=== PATIENT | female | born 1930 | race Caucasian/White ===

== ENCOUNTER → 2016-05-17 | Outpatient (CLI) | payer MEDICARE ==
[~2016-05-17] MED LIST: ADVA100A INH; ALBU0.086 NEB; FEXO60TA PO; FLUT0.05 EX; FURO20; HYZA50TA2 PO; KCL20; PRIL20CA PO; ZOFR8TAB PO
[2016-05-17 13:14] LABS: POTASSIUM 4.3 MEQ/L (3.5-5.1)
[2016-05-17 13:18] LABS: BICARBONATE 29.8 MEQ/L (21.0-32.0)
== END ==
LOC: PLAB 12:22
PROVIDERS: ATTEND Internal Medicine Endocrinology, Diabetes & Metabolism
DX: E83.51 Hypocalcemia (principal)
CPT/HCPCS: 36415; 80048

== ENCOUNTER → 2016-05-24 | Outpatient (CLI) | payer MEDICARE ==
[2016-05-24 16:14] LABS: BICARBONATE 31.8 MEQ/L (21.0-32.0); POTASSIUM 3.4 MEQ/L (3.5-5.1)
== END ==
LOC: PLAB 12:37
PROVIDERS: ATTEND Internal Medicine Endocrinology, Diabetes & Metabolism
DX: E83.51 Hypocalcemia (principal)
CPT/HCPCS: 36415; 80048

== ENCOUNTER → 2016-06-24 | Outpatient (CLI) | payer MEDICARE ==
[2016-06-24 13:53] LABS: ALKALINE PHOSPHATASE 60 U/L (45-117); ALT (GPT) 27 U/L (10-53); ANION GAP 9 MEQ/L (5-15); AST (GOT) 21 U/L (15-37); BICARBONATE 26.8 MEQ/L (21.0-32.0); BLOOD UREA NITROGEN 11 MG/DL (7-18); CHLORIDE 97 MEQ/L (98-107); FREE T4 1.44 NG/DL (0.76-1.46); GLOMERULAR FILTRATION RATE 62 ML/MIN (>89); GLUCOSE,FASTING 74 MG/DL (74-99); POTASSIUM 3.6 MEQ/L (3.5-5.1); SODIUM (NA) 133 MEQ/L (136-145); TOTAL BILIRUBIN ADULT 0.4 MG/DL (0.2-1.0)
== END ==
LOC: PLAB 08:08
PROVIDERS: ATTEND Internal Medicine Endocrinology, Diabetes & Metabolism
DX: E89.0 Postprocedural hypothyroidism (principal); E21.0 Primary hyperparathyroidism
CPT/HCPCS: 36415; 80053; 83970; 84439; 84443

== ENCOUNTER → 2016-08-19 | Outpatient (CLI) | payer MEDICARE ==
[2016-08-19 10:02] LABS: ALKALINE PHOSPHATASE 50 U/L (45-117); ALT (GPT) 20 U/L (10-53); ANION GAP 9 MEQ/L (5-15); AST (GOT) 15 U/L (15-37); BICARBONATE 29.9 MEQ/L (21.0-32.0); BLOOD UREA NITROGEN 22 MG/DL (7-18); CHLORIDE 101 MEQ/L (98-107); FREE T4 1.43 NG/DL (0.76-1.46); GLOMERULAR FILTRATION RATE 71 ML/MIN (>89); GLUCOSE,FASTING 69 MG/DL (74-99); POTASSIUM 3.2 MEQ/L (3.5-5.1); SODIUM (NA) 140 MEQ/L (136-145); TOTAL BILIRUBIN ADULT 0.6 MG/DL (0.2-1.0)
== END ==
LOC: PLAB 07:30
PROVIDERS: ATTEND Internal Medicine Endocrinology, Diabetes & Metabolism
DX: E83.52 Hypercalcemia (principal); E21.0 Primary hyperparathyroidism; E55.9 Vitamin D deficiency, unspecified; E89.0 Postprocedural hypothyroidism
CPT/HCPCS: 36415; 80053; 82306; 83970; 84439; 84443

== ENCOUNTER → 2016-10-28 | Outpatient (CLI) | payer MEDICARE ==
[2016-10-28 13:33] LABS: AST (GOT) 19 U/L (15-37); CHLORIDE 103 MEQ/L (98-107); GLOMERULAR FILTRATION RATE 57 ML/MIN (>89); GLUCOSE,FASTING 81 MG/DL (74-99); POTASSIUM 4.1 MEQ/L (3.5-5.1); SODIUM (NA) 141 MEQ/L (136-145)
[2016-10-28 13:45] LABS: ALKALINE PHOSPHATASE 47 U/L (45-117); ALT (GPT) 23 U/L (10-53); ANION GAP 7 MEQ/L (5-15); BICARBONATE 30.6 MEQ/L (21.0-32.0); BLOOD UREA NITROGEN 20 MG/DL (7-18); FREE T4 1.48 NG/DL (0.76-1.46); TOTAL BILIRUBIN ADULT 0.4 MG/DL (0.2-1.0)
== END ==
LOC: PLAB 08:20
PROVIDERS: ATTEND Internal Medicine Endocrinology, Diabetes & Metabolism
DX: E83.52 Hypercalcemia (principal); E89.0 Postprocedural hypothyroidism
CPT/HCPCS: 36415; 80053; 82306; 83970; 84439; 84443

== ENCOUNTER → 2016-12-05 | Outpatient (CLI) | payer MEDICARE ==
[2016-12-05 09:56] LABS: ANION GAP 7 MEQ/L (5-15); BICARBONATE 32.5 MEQ/L (21.0-32.0); BLOOD UREA NITROGEN 25 MG/DL (7-18); CHLORIDE 101 MEQ/L (98-107); GLUCOSE,FASTING 84 MG/DL (74-99); POTASSIUM 3.6 MEQ/L (3.5-5.1); SODIUM (NA) 140 MEQ/L (136-145); TOTAL BILIRUBIN ADULT 0.4 MG/DL (0.2-1.0)
[2016-12-05 09:58] LABS: ALKALINE PHOSPHATASE 52 U/L (45-117)
[2016-12-05 09:59] LABS: ALT (GPT) 24 U/L (10-53); AST (GOT) 20 U/L (15-37); GLOMERULAR FILTRATION RATE 42 ML/MIN (>89)
== END ==
LOC: PLAB 07:55
PROVIDERS: ATTEND Internal Medicine Endocrinology, Diabetes & Metabolism
DX: E21.0 Primary hyperparathyroidism (principal)
CPT/HCPCS: 36415; 80053

== ENCOUNTER → 2016-12-30 | Outpatient (CLI) | payer MEDICARE ==
[~2016-12-30] MED LIST changes: +CALC0.25 PO; +CALCCHW4 CHEW; +FURO20TA PO; +LEVO.1 PO; +LOSA50TA2 PO; +MAGN400T2 PO; +OMEP20TA PO; +POTA10TA2 PO; +PRED50 PO
[2016-12-30 09:58] LABS: ANION GAP 5 MEQ/L (5-15); AST (GOT) 16 U/L (15-37); BICARBONATE 30.8 MEQ/L (21.0-32.0); BLOOD UREA NITROGEN 25 MG/DL (7-18); CHLORIDE 101 MEQ/L (98-107); GLOMERULAR FILTRATION RATE 48 ML/MIN (>89); GLUCOSE,FASTING 83 MG/DL (74-99); POTASSIUM 3.3 MEQ/L (3.5-5.1); SODIUM (NA) 137 MEQ/L (136-145)
[2016-12-30 10:11] LABS: ALKALINE PHOSPHATASE 48 U/L (45-117); ALT (GPT) 22 U/L (10-53); FREE T4 1.41 NG/DL (0.76-1.46); TOTAL BILIRUBIN ADULT 0.5 MG/DL (0.2-1.0)
== END ==
LOC: PLAB 07:57
PROVIDERS: ATTEND Internal Medicine Endocrinology, Diabetes & Metabolism
DX: E21.0 Primary hyperparathyroidism (principal); E89.0 Postprocedural hypothyroidism
CPT/HCPCS: 36415; 80053; 82306; 82652; 83970; 84439; 84443

== ENCOUNTER → 2017-02-03 | Outpatient (CLI) | payer MEDICARE ==
[2017-02-03 12:04] LABS: ALT (GPT) 21 U/L (10-53); ANION GAP 6 MEQ/L (5-15); AST (GOT) 16 U/L (15-37); BICARBONATE 30.5 MEQ/L (21.0-32.0); BLOOD UREA NITROGEN 13 MG/DL (7-18); CHLORIDE 102 MEQ/L (98-107); GLOMERULAR FILTRATION RATE 53 ML/MIN (>89); GLUCOSE,FASTING 73 MG/DL (74-99); POTASSIUM 3.6 MEQ/L (3.5-5.1); SODIUM (NA) 138 MEQ/L (136-145)
[2017-02-03 12:14] LABS: ALKALINE PHOSPHATASE 44 U/L (45-117); FREE T4 1.44 NG/DL (0.76-1.46); TOTAL BILIRUBIN ADULT 0.5 MG/DL (0.2-1.0)
== END ==
LOC: PLAB 08:23
PROVIDERS: ATTEND Internal Medicine Endocrinology, Diabetes & Metabolism
DX: E83.52 Hypercalcemia (principal); E89.0 Postprocedural hypothyroidism
CPT/HCPCS: 36415; 80053; 84439; 84443

== ENCOUNTER → 2017-02-16 | Outpatient (CLI) | payer MEDICARE ==
[2017-02-16 14:47] LABS: CHLORIDE 99 MEQ/L (98-107); SODIUM (NA) 138 MEQ/L (136-145)
[2017-02-16 14:52] LABS: ANION GAP 6 MEQ/L (5-15); BICARBONATE 33.5 MEQ/L (21.0-32.0); BLOOD UREA NITROGEN 34 MG/DL (7-18); MAGNESIUM 2.1 MG/DL (1.5-2.5)
[2017-02-16 14:55] LABS: ALT (GPT) 24 U/L (10-53); AST (GOT) 15 U/L (15-37); GLOMERULAR FILTRATION RATE 42 ML/MIN (>89)
[2017-02-16 14:57] LABS: TOTAL BILIRUBIN ADULT 0.5 MG/DL (0.2-1.0)
[2017-02-16 14:58] LABS: ALKALINE PHOSPHATASE 51 U/L (45-117)
== END ==
LOC: PLAB 02-15 13:53
PROVIDERS: ATTEND Internal Medicine Endocrinology, Diabetes & Metabolism
DX: E83.50 Unspecified disorder of calcium metabolism (principal); E89.0 Postprocedural hypothyroidism; E21.0 Primary hyperparathyroidism
CPT/HCPCS: 36415; 80053; 83735

== ENCOUNTER 2017-02-18 20:03 | Emergency (ER) | payer MEDICARE ==
[~2017-02-18] VITALS: Ht 162.6 cm; Wt 64.4 kg
[~2017-02-18 20:03] MED LIST changes: -CALC0.25 PO; -CALCCHW4 CHEW; -FURO20TA PO; -LEVO.1 PO; -LOSA50TA2 PO; -MAGN400T2 PO; -OMEP20TA PO; -POTA10TA2 PO; -PRED50 PO
[2017-02-18 20:37] VITALS: BP 165/74; PULSE 87; RESP 20; TEMP 98.4; O2SAT 96
[2017-02-18 21:00] VITALS: BP 166/75; PULSE 88; RESP 16; O2SAT 97
--- NOTE | 2017-02-18 21:21 | PD ---
HPI Chief Complaint: ENT Complaint Time Seen by Provider: 21:18 Travel History International Travel<30 days: No Contact w/Intl Traveler<30days: No Traveled to known affect area: No History of Present Illness HPI The patient is an 86-year-old female that states 2 days ago she woke up in the morning and her left TMJ was painful. She says she cannot completely close her teeth because of the pain on the left TMJ. She states she probably slept on around. She denies any other trauma. She has never had this problem before. The patient does have a history of COPD and asthma. She states she tolerates prednisone well. PFSH Past Medical History Asthma: Yes Heart Rhythm Problems: No Cancer: No Cardiovascular Problems: Yes High Cholesterol: No Chest Pain: No Congestive Heart Failure: No COPD: Yes Cerebrovascular Accident: No Diabetes: No Diminished Hearing: No Endocrine: No Genitourinary: No Hepatitis: No Hiatal Hernia: No Hypertension: Yes Musculoskeletal: No Neurologic: Yes Psychiatric: No Reproductive: No Respiratory: Yes (COPD) Migraines: No Seizures: No Sleep Apnea: No Thyroid Disease: Yes Menopausal: Yes : 0 Para: 0 Miscarriage: 0 : 0 Past Surgical History Abdominal Surgery: No Cardiac Surgery: No Ear Surgery: No Endocrine Surgery: No Eye Surgery: No Genitourinary Surgery: No Gynecologic Surgery: No Oral Surgery: Yes (TONSILECTOMY) Thoracic Surgery: No Tonsillectomy: Yes Other Surgery: Yes Social History Alcohol Use: No Tobacco Use: No Substance Use: No Allergies-Medications (Allergen,Severity, Reaction): Coded Allergies: penicillin G (Unverified Allergy, Intermediate, Rash, 02/18/17) sulfite (Unverified Allergy, Intermediate, Rash, 02/18/17) Reported Meds & Prescriptions Reported Meds & Active Scripts Active Prednisone 50 Mg Tab 50 Mg PO BID Zofran Tab (Ondansetron HCl) 8 Mg Tab 8 Mg PO BID Reported Proventil Ud 0.083% (2.5 Mg/3 Ml) (Albuterol Sulfate) 2.5 Mg/3 Ml Inha 2.5 Mg NEB PRN Hyzaar 50-12.5 (Losartan Potassium-Hct 50-12.5) 50 Mg/12.5 Mg Tab 1 Tab PO DAILY Cecile (Fexofenadine HCl) 60 Mg Tab Mg PO PRN Fluticasone Propionate cream (Fluticasone Propionate) 0.05 % Lot 0.05 % EX DAILY Advair Diskus 100/50 (Salmeterol Xinafoate/Fluticasone) 100 Mcg/50 Mcg Inhp 1 Puff INH BID Kcl 20 Meq Tab (Potassium Chloride) 20 Meq Tabcr 10 Meq .XX DAILY Lasix 20 Mg Tab (Furosemide) 20 Mg Tab 20 Mg .XX DAILY Prilosec 20 mg (Omeprazole) 20 Mg Capcr 20 Mg PO DAILY Review of Systems Except as stated in HPI: all other systems reviewed are Neg Physical Exam Narrative GENERAL: Well-nourished, well-developed patient. SKIN: Focused skin assessment warm/dry. HEAD: Normocephalic. EYES: No scleral icterus. No injection or drainage. NECK: Supple, trachea midline. No JVD or lymphadenopathy. CARDIOVASCULAR: Regular rate and rhythm without murmurs, gallops, or rubs. RESPIRATORY: Breath sounds equal bilaterally. No accessory muscle use. GASTROINTESTINAL: Abdomen soft, non-tender, nondistended. MUSCULOSKELETAL: No cyanosis, or edema. BACK: Nontender without obvious deformity. No CVA tenderness. ENT: The teeth show no evidence of dental infection, the tympanic membranes are normal, the left TMJ is exquisitely tender although noninflamed and there is no erythema of the skin. No swelling is noted there. There appears to be no dislocation. Data Data Last Documented VS Vital Signs Date Time Temp Pulse Resp B/P (MAP) Pulse Ox O2 Delivery O2 Flow Rate FiO2 02/18/17 21:00 88 16 166/75 (105) 97 Room Air 02/18/17 20:37 98.4 Orders Orders Mandible, Complete (Min 4vws) (02/18/17 ) Prednisone (Deltasone) (02/18/17 21:45) MDM Medical Decision Making Medical Screen Exam Complete: Yes Emergency Medical Condition: Yes Medical Record Reviewed: Yes Interpretation(s) X-rays of the mandible show no acute disease, specifically no fracture or dislocation. The condylar heads and necks appear normal. Differential Diagnosis TMJ pain, dental pain, ear pain Narrative Course The patient has TMJ pain there is no clinical evidence of dental pain or ear pain mimicking this. Also, the x-ray of the mandible show no acute disease. She is told to follow-up with an employment law attorney if she has continued problems with this. Diagnosis Primary Impression: Temporomandibular joint pain Additional Instructions: The prednisone is to calm down the TMJ area. It is one tablet twice daily for 3 days followed by one tablet once daily for 3 days. Follow-up with an employment law attorney or your primary care physician if you have continued pain. Med/Other Pt SpecificInfo: Prescription(s) given Scripts Prednisone (Prednisone) 50 Mg Tab 50 MG PO BID for X 3 days than 1 X 3 days, #9 TAB 0 Refills Prov: Renan Sanders MD 02/18/17 Disposition: 01 DISCHARGE HOME Condition: Stable Renan Sanders MD Feb 18, 2017 21:21
[2017-02-18] MEDS ORDERED: PRED50 PO (21:41)
[2017-02-18] MEDS ORDERED: predniSONE 20 MG TAB PO ONE (21:45)
--- NOTE | 2017-02-18 21:58 | RADRPT ---
EXAM DATE/TIME: 02/18/2017 21:31 [facility] COMPARISON: No previous studies available for comparison. INDICATIONS : Pain with no known injury. Patient has a history of a dislocating jaw. MEDICAL HISTORY : Chronic obstructive pulmonary disease. Cardiovascular disease. Hypertension. SURGICAL HISTORY : None. ENCOUNTER: Initial ACUITY: 1 day PAIN SCORE: 5/10 LOCATION: Left Mandibular rami. FINDINGS: Frontal, lateral, and oblique views of the mandible were performed. No fracture is seen. The condyl ar heads and necks appear normal. No dislocation is identified. Bony mineralization is normal. CONCLUSION: No acute disease. Higinoi Gómez MD on February 18, 2017 at 21:57 Board Certified Radiologist. This report was verified electronically.
[2017-02-18 22:15] VITALS: BP 141/61
[2017-02-18] MEDS ORDERED: CALC0.25 PO (22:29)
[2017-02-18] MEDS ORDERED: OMEP20TA PO (22:29)
[2017-02-18] MEDS ORDERED: FURO20TA PO (22:29)
[2017-02-18] MEDS ORDERED: ADVA100A INH (22:29)
[2017-02-18] MEDS ORDERED: MAGN400T2 PO (22:29)
[2017-02-18] MEDS ORDERED: POTA10TA2 PO (22:29)
[2017-02-18] MEDS ORDERED: LOSA50TA2 PO (22:29)
[2017-02-18] MEDS ORDERED: LEVO.1 PO (22:29)
[2017-02-18] MEDS ORDERED: CALCCHW4 CHEW (22:29)
== END 2017-02-18 22:15 | disposition home or self-care (01) ==
LOC: PHED 20:03
DX: M26.602 Left temporomandibular joint disorder, unspecified (principal)
CPT/HCPCS: 70110; 99283; J7512

== ENCOUNTER → 2017-04-17 | Outpatient (CLI) | payer MEDICARE ==
[~2017-04-17] MED LIST changes: -ALBU0.086 NEB; +CALC0.25 PO; +CALCCHW4 CHEW; -FEXO60TA PO; -FLUT0.05 EX; -FURO20; +FURO20TA PO; -HYZA50TA2 PO; -KCL20; +LEVO.1 PO; +LOSA50TA2 PO; +MAGN400T2 PO; +OMEP20TA93 PO; +POTA10TA2 PO; +PRED50 PO; -PRIL20CA PO; -ZOFR8TAB PO
[2017-04-17 12:52] LABS: ANION GAP 8 MEQ/L (5-15); BICARBONATE 30.5 MEQ/L (21.0-32.0); BLOOD UREA NITROGEN 16 MG/DL (7-18); CHLORIDE 103 MEQ/L (98-107); GLOMERULAR FILTRATION RATE 49 ML/MIN (>89); GLUCOSE,FASTING 79 MG/DL (74-99); POTASSIUM 3.8 MEQ/L (3.5-5.1); SODIUM (NA) 141 MEQ/L (136-145)
[2017-04-17 12:56] LABS: ALKALINE PHOSPHATASE 52 U/L (45-117); ALT (GPT) 22 U/L (10-53); AST (GOT) 17 U/L (15-37); TOTAL BILIRUBIN ADULT 0.5 MG/DL (0.2-1.0)
== END ==
LOC: PLAB 08:09
PROVIDERS: ATTEND Internal Medicine Endocrinology, Diabetes & Metabolism
DX: E89.0 Postprocedural hypothyroidism (principal); E21.4 Other specified disorders of parathyroid gland; E87.6 Hypokalemia; E55.9 Vitamin D deficiency, unspecified
CPT/HCPCS: 36415; 80053; 82306; 82652; 83735

== ENCOUNTER 2017-05-30 18:55 | Inpatient (IN) | payer MEDICARE ==
[~2017-05-30] VITALS: Ht 162.6 cm; Wt 64.2 kg
[2017-05-30 19:03] VITALS: BP 118/58; PULSE 66; RESP 18; TEMP 97.3; O2SAT 96
[2017-05-30 20:08] VITALS: BP 123/60; PULSE 73; RESP 16; O2SAT 93
[2017-05-30] MEDS ORDERED: SODIUM CHLORID 0.9% 500 ML INJ 500 ML IV ONE (20:30)
[2017-05-30] MEDS ORDERED: SODIUM CHLORIDE 0.9% FLUSH 10 ML FLUSH IV FLUSH PRN ×2 (20:30→22:15)
--- NOTE | 2017-05-30 20:31 | PD ---
HPI Chief Complaint: General Weakness Time Seen by Provider: 19:52 Travel History International Travel<30 days: No Contact w/Intl Traveler<30days: No Traveled to known affect area: No History of Present Illness HPI The patient is a 86-year-old female who presents to the emergency department with a friend for generalized weakness. The patient is a one-week history of generalized weakness, feels like her legs are "giving out ". The patient then was noted to have a change in speech on Monday by a friend, the patient states she noticed her speech was different on Monday. She states that her speech sounds "thick", appears to improve with water. She also states she was ambulating yesterday when her legs give out she fell to the floor. She landed on a tile floor, but denies striking her head or any loss of consciousness. She does complain of mild nausea without any vomiting, diarrhea , or abdominal pain. She denies any dysuria, but does note dark and concentrated urine. She also notes there is a foul smell to the urine. The patient does live alone at home. She denies any headache, neck pain, chest pain , shortness of breath, or abdominal pain. She denies any focal deficits of the upper or lower extremity. Symptoms are mild to moderate without any alleviating or exacerbating factors. PFSH Past Medical History Asthma: Yes Heart Rhythm Problems: No Cancer: No Cardiovascular Problems: Yes High Cholesterol: No Chest Pain: No Congestive Heart Failure: No COPD: Yes Cerebrovascular Accident: No Diabetes: No Diminished Hearing: No Endocrine: No Gastrointestinal Disorders: No Genitourinary: No Headaches: No Hepatitis: No Hiatal Hernia: No Hypertension: Yes Implanted Vascular Access Dvce: No Medical other: No Musculoskeletal: No Neurologic: Yes Psychiatric: No Reproductive: No Respiratory: Yes (COPD) Migraines: No Seizures: No Sleep Apnea: No Thyroid Disease: Yes Influenza Vaccination: Yes Menopausal: Yes : 0 Para: 0 Miscarriage: 0 : 0 Past Surgical History Abdominal Surgery: No Cardiac Surgery: No Ear Surgery: No Endocrine Surgery: No Eye Surgery: No Genitourinary Surgery: No Gynecologic Surgery: No Neurologic Surgery: No Oral Surgery: Yes (TONSILECTOMY) Thoracic Surgery: No Tonsillectomy: Yes Other Surgery: Yes Social History Alcohol Use: No Tobacco Use: No Substance Use: No Allergies-Medications (Allergen,Severity, Reaction): Coded Allergies: penicillin G (Verified Allergy, Intermediate, Rash, 05/30/17) sulfite (Verified Allergy, Intermediate, Rash, 05/30/17) Reported Meds & Prescriptions Reported Meds & Active Scripts Active Reported Calcium 500/D (Calcium Carbonate-Cholecalciferol) 500-400 Mg-Unit Chew 1 Tab CHEW TID NEB Magnesium Oxide 400 Mg Tab 400 Mg PO DAILY Synthroid (Levothyroxine Sodium) 100 Mcg Tab 100 Mcg PO DAILY Calcitriol 0.25 Mcg Cap 0.25 Mcg PO BID NEB Losartan-Hydrochlorothiazide 50-12.5 Mg Tab 1 Tab PO DAILY Furosemide 20 Mg Tab 20 Mg PO DAILY Potassium Chloride ER (Potassium Chloride) 10 Meq Tab 10 Meq PO DAILY Omeprazole 20 Mg Tab 20 Mg PO DAILY Advair Diskus Inh (Fluticasone-Salmeterol Inh) 100-50 Mcg/Blist Aer 1 Puff INH BID Rinse mouth after use. Review of Systems Except as stated in HPI: all other systems reviewed are Neg General / Constitutional: No: Fever HENT: No: Headaches, Lightheadedness Cardiovascular: No: Chest Pain or Discomfort Respiratory: No: Shortness of Breath Gastrointestinal: Positive: Nausea, No: Vomiting, Diarrhea, Abdominal Pain Genitourinary: Positive: Dysuria, Other (dark colored urine with a foul smell) Musculoskeletal: Positive: Weakness Neurologic: Positive: Weakness, Slurred Speech, No: Dizziness, Change in Mentation Physical Exam Narrative GENERAL: Awake, alert, pleasant 86-year-old female who appears her stated age and is in no acute respiratory distress. SKIN: Focused skin assessment warm/dry. HEAD: Atraumatic. Normocephalic. EYES: Pupils equal and round. 2 mm bilateral and reactive. EOMs are intact. Patient is able to see fingers at a distance of 2 feet without difficulty. ENT: No nasal bleeding or discharge. Dry mucous membranes. NECK: Trachea midline. No JVD. CARDIOVASCULAR: Regular rate and rhythm. No murmur appreciated. RESPIRATORY: No accessory muscle use. Clear to auscultation. Breath sounds equal bilaterally. GASTROINTESTINAL: Abdomen soft, non-tender, nondistended. No rebound tenderness. MUSCULOSKELETAL: No obvious deformities. No clubbing. No cyanosis. No edema. NEUROLOGICAL: Awake and alert. No obvious cranial nerve deficits. Motor grossly within normal limits. Speech is slightly thick and slow. Smile appears symmetric. No drift of the upper or lower extremities. Sensation is symmetric on the face, arms, and legs. Nonfocal otherwise. PSYCHIATRIC: Appropriate mood and affect; insight and judgment normal. Data Data Last Documented VS Vital Signs Date Time Temp Pulse Resp B/P (MAP) Pulse Ox O2 Delivery O2 Flow Rate FiO2 05/30/17 21:35 72 26 145/64 (91) 97 Room Air 05/30/17 19:03 97.3 Orders Orders Electrocardiogram (05/30/17 20:16) Complete Blood Count With Diff (05/30/17 20:16) Comprehensive Metabolic Panel (05/30/17 20:16) Creatine Kinase (Cpk) (05/30/17 20:16) Troponin I (05/30/17 20:16) Thyroid Stimulating Hormone (05/30/17 20:16) Urinalysis - C+S If Indicated (05/30/17 20:16) Lactic Acid Sepsis Protocol (05/30/17 20:16) Chest, Single Ap (05/30/17 20:16) Ct Brain W/O Iv Contrast(Rout) (05/30/17 20:16) Blood Glucose (05/30/17 20:16) Ecg Monitoring (05/30/17 20:16) Iv Access Insert/Monitor (05/30/17 20:16) Oximetry (05/30/17 20:16) Sodium Chloride 0.9% Flush (Ns Flush) (05/30/17 20:30) Sodium Chlorid 0.9% 500 Ml Inj (Ns 500 M (05/30/17 20:30) Cath For Specimen (05/30/17 21:09) Urine Culture (05/30/17 21:37) Sodium Chlor 0.9% 1000 Ml Inj (Ns 1000 M (05/30/17 22:00) Potassium Chloride (Kcl) (05/30/17 22:00) Ciprofloxacin 200 Mg Premix (Cipro 200 M (05/30/17 22:15) Labs Laboratory Tests Test 05/30/17 20:40 05/30/17 21:37 White Blood Count 16.8 TH/MM3 Red Blood Count 4.69 MIL/MM3 Hemoglobin 13.5 GM/DL Hematocrit 41.6 % Mean Corpuscular Volume 88.8 FL Mean Corpuscular Hemoglobin 28.9 PG Mean Corpuscular Hemoglobin Concent 32.5 % Red Cell Distribution Width 13.2 % Platelet Count 324 TH/MM3 Mean Platelet Volume 9.0 FL Neutrophils (%) (Auto) 87.9 % Lymphocytes (%) (Auto) 6.0 % Monocytes (%) (Auto) 5.6 % Eosinophils (%) (Auto) 0.2 % Basophils (%) (Auto) 0.3 % Neutrophils # (Auto) 14.8 TH/MM3 Lymphocytes # (Auto) 1.0 TH/MM3 Monocytes # (Auto) 0.9 TH/MM3 Eosinophils # (Auto) 0.0 TH/MM3 Basophils # (Auto) 0.1 TH/MM3 CBC Comment DIFF FINAL Differential Comment Blood Urea Nitrogen 32 MG/DL Creatinine 1.80 MG/DL Random Glucose 121 MG/DL Total Protein 8.7 GM/DL Albumin 4.0 GM/DL Calcium Level 15.9 MG/DL Alkaline Phosphatase 51 U/L Aspartate Amino Transf (AST/SGOT) 21 U/L Alanine Aminotransferase (ALT/SGPT) 25 U/L Total Bilirubin 0.7 MG/DL Sodium Level 136 MEQ/L Potassium Level 2.9 MEQ/L Chloride Level 95 MEQ/L Carbon Dioxide Level 33.3 MEQ/L Anion Gap 8 MEQ/L Estimat Glomerular Filtration Rate 27 ML/MIN Lactic Acid Level 1.4 mmol/L Protein Corrected Calcium 14.5 MG/DL Total Creatine Kinase 85 U/L Troponin I LESS THAN 0.02 NG/ML Thyroid Stimulating Hormone 3rd Gen 1.490 uIU/ML Urine Color YELLOW Urine Turbidity CLEAR Urine pH 7.0 Urine Specific [place] 1.008 Urine Protein NEG mg/dL Urine Glucose (UA) NEG mg/dL Urine Ketones NEG mg/dL Urine Occult Blood NEG Urine Nitrite NEG Urine Bilirubin NEG Urine Leukocyte Esterase SMALL Urine RBC 0-3 /hpf Urine WBC 9-14 /hpf Urine WBC Clumps FEW Urine Squamous Epithelial Cells 0-5 /hpf Urine Hyaline Casts 3-5 /lpf Microscopic Urinalysis Comment CATH-CULTURE IND MDM Medical Decision Making Medical Screen Exam Complete: Yes Emergency Medical Condition: Yes Medical Record Reviewed: Yes Interpretation(s) EKG reveals sinus rhythm with sinus arrhythmia. First-degree AV block with OH interval 2 and 40 ms. Nonspecific T-wave changes, inverted T-wave noted in lead 3. Laboratory Tests Test 05/30/17 20:40 05/30/17 21:37 White Blood Count 16.8 TH/MM3 Red Blood Count 4.69 MIL/MM3 Hemoglobin 13.5 GM/DL Hematocrit 41.6 % Mean Corpuscular Volume 88.8 FL Mean Corpuscular Hemoglobin 28.9 PG Mean Corpuscular Hemoglobin Concent 32.5 % Red Cell Distribution Width 13.2 % Platelet Count 324 TH/MM3 Mean Platelet Volume 9.0 FL Neutrophils (%) (Auto) 87.9 % Lymphocytes (%) (Auto) 6.0 % Monocytes (%) (Auto) 5.6 % Eosinophils (%) (Auto) 0.2 % Basophils (%) (Auto) 0.3 % Neutrophils # (Auto) 14.8 TH/MM3 Lymphocytes # (Auto) 1.0 TH/MM3 Monocytes # (Auto) 0.9 TH/MM3 Eosinophils # (Auto) 0.0 TH/MM3 Basophils # (Auto) 0.1 TH/MM3 CBC Comment DIFF FINAL Differential Comment Blood Urea Nitrogen 32 MG/DL Creatinine 1.80 MG/DL Random Glucose 121 MG/DL Total Protein 8.7 GM/DL Albumin 4.0 GM/DL Calcium Level 15.9 MG/DL Alkaline Phosphatase 51 U/L Aspartate Amino Transf (AST/SGOT) 21 U/L Alanine Aminotransferase (ALT/SGPT) 25 U/L Total Bilirubin 0.7 MG/DL Sodium Level 136 MEQ/L Potassium Level 2.9 MEQ/L Chloride Level 95 MEQ/L Carbon Dioxide Level 33.3 MEQ/L Anion Gap 8 MEQ/L Estimat Glomerular Filtration Rate 27 ML/MIN Lactic Acid Level 1.4 mmol/L Protein Corrected Calcium 14.5 MG/DL Total Creatine Kinase 85 U/L Troponin I LESS THAN 0.02 NG/ML Thyroid Stimulating Hormone 3rd Gen 1.490 uIU/ML Urine Color YELLOW Urine Turbidity CLEAR Urine pH 7.0 Urine Specific [place] 1.008 Urine Protein NEG mg/dL Urine Glucose (UA) NEG mg/dL Urine Ketones NEG mg/dL Urine Occult Blood NEG Urine Nitrite NEG Urine Bilirubin NEG Urine Leukocyte Esterase SMALL Urine RBC 0-3 /hpf Urine WBC 9-14 /hpf Urine WBC Clumps FEW Urine Squamous Epithelial Cells 0-5 /hpf Urine Hyaline Casts 3-5 /lpf Microscopic Urinalysis Comment CATH-CULTURE IND Last Impressions Head CT 05/30/172015 Signed Impressions: Service Date/Time: Tuesday, May 30, 2017 21:41 - CONCLUSION: No acute disease. Esvin Cazares Jr., MD Chest X-Ray 05/30/172015 Signed Impressions: Service Date/Time: Tuesday, May 30, 2017 20:50 - CONCLUSION: Hyperinflation suggesting COPD. No acute infiltrate or effusion. Esvin Cazares Jr., MD Differential Diagnosis Differential diagnosis includes dehydration, UTI, pneumonia, subdural hemorrhage , TIA, CVA, hyponatremia, electrolyte abnormality, medication side effect, delirium. Narrative Course IV was established, labs are drawn and sent, and the patient was placed on cardiac telemetry monitoring and continuous pulse oximetry monitoring. EKG was ordered and interpreted. Chest x-ray was obtained. CT of the brain was obtained. UA was sent to lab. The patient was administered IV fluids. CT the brain is negative. Chest x-rays unremarkable. The patient's white count was elevated at 16.8, creatinine elevated 1.8, may be dehydration with hemoconcentration. Calcium level was elevated at 15.9 with protein corrected of 14.5. The patient does have a history of hyperparathyroidism, recently had a thyroidectomy and partial parathyroidectomy in [place] in 2015. The patient states he recently increased her calcium supplementation, by her access assoc Dr. Ky Hussein. The patient also had a potassium that was low , the potassium was replaced orally. The patient was administered 1 L of IV fluids and will be placed on maintenance IV fluids. Once the patient's calcium levels begin the fall, she will need her calcium supplementation change and possibly a hold on her thighs lenses this can also cause elevated calcium levels. She will need to follow-up with her access assoc. I discussed the patient with the on-call [facility] hospitalist, Dr. Pak, who agrees with admission. Physician Communication Physician Communication I discussed the patient with Dr. Pak who agrees with admission. Diagnosis Primary Impression: Hypercalcemia Additional Impressions: Hypokalemia Acute kidney injury Dehydration Admitting Information Admitting Physician Requests: Admit Condition: Stable Danial Kirkpatrick MD May 30, 2017 20:31
[2017-05-30 20:44] VITALS: O2SAT 95
[2017-05-30 20:55] LABS: AUTOMATED NEUTROPHIL # 14.8 TH/MM3 (1.8-7.7); BASOPHIL # 0.1 TH/MM3 (0-0.2); BASOPHIL % 0.3 % (0.0-2.0); EOSINOPHIL % 0.2 % (0.0-4.0); HEMATOCRIT 41.6 % (35.0-46.0); HEMOGLOBIN 13.5 GM/DL (11.6-15.3); MEAN CELL VOLUME 88.8 FL (80.0-100.0); MEAN CORPUSCULAR HEMOGLOBIN 28.9 PG (27.0-34.0); MEAN CORPUSCULAR HGB CONC 32.5 % (32.0-36.0); MONO % 5.6 % (0.0-8.0); MONOCYTE # 0.9 TH/MM3 (0-0.9); NEUT % 87.9 % (16.0-70.0); PLATELET COUNT 324 TH/MM3 (150-450); RED BLOOD COUNT 4.69 MIL/MM3 (4.00-5.30); RED CELL DISTRIBUTION WIDTH 13.2 % (11.6-17.2); WHITE BLOOD COUNT 16.8 TH/MM3 (4.0-11.0)
--- NOTE | 2017-05-30 21:11 | RADRPT ---
EXAM DATE/TIME: 05/30/2017 20:50 [facility] COMPARISON: CHEST SINGLE AP, August 10, 2015, 23:50. INDICATIONS : Weakness for 2 days. MEDICAL HISTORY : Chronic obstructive pulmonary disease. Cardiovascular disease. Hypertension. SURGICAL HISTORY : None. ENCOUNTER: Initial ACUITY: 2 days PAIN SCORE: 0/10 LOCATION: Bilateral chest FINDINGS: A single view of the chest demonstrates the lungs to be symmetrically aerated without evidence of mas s, infiltrate or effusion. The lungs are hyperinflated bilaterally. The cardiomediastinal contours ar e unremarkable. Osseous structures are intact. CONCLUSION: Hyperinflation suggesting COPD. No acute infiltrate or effusion. Esvin Cazares Jr., MD on May 30, 2017 at 21:07 Board Certified Radiologist. This report was verified electronically.
[2017-05-30 21:35] VITALS: BP 145/64; PULSE 72; RESP 26; O2SAT 97
[2017-05-30 21:37] LABS: BILIRUBIN, URINE NEG (NEG); BLOOD, URINE NEG (NEG); GLUCOSE,URINE NEG (NEG); KETONE, URINE NEG (NEG); NITRITE,URINE NEG (NEG); URINE LEUKOCYTE ESTERASE SMALL (NEG)
[2017-05-30 21:43] LABS: URINE COLOR YELLOW (YELLW/STRAW)
[2017-05-30 21:44] LABS: ALKALINE PHOSPHATASE 51 U/L (45-117); ALT (GPT) 25 U/L (10-53); AST (GOT) 21 U/L (15-37); BICARBONATE 33.3 MEQ/L (21.0-32.0); BLOOD UREA NITROGEN 32 MG/DL (7-18); CHLORIDE 95 MEQ/L (98-107); GLOMERULAR FILTRATION RATE 27 ML/MIN (>89); GLUCOSE,RANDOM 121 MG/DL (74-106); SODIUM (NA) 136 MEQ/L (136-145); TOTAL BILIRUBIN ADULT 0.7 MG/DL (0.2-1.0); TOTAL PROTEIN 8.7 GM/DL (6.4-8.2); TROPONIN I LESS THAN 0.02 NG/ML (0.02-0.05)
[2017-05-30 21:45] LABS: RBC, URINE 0-3 /hpf (0-3); WHITE BLOOD CELL CLUMPS FEW
[2017-05-30 21:46] LABS: SQUAMOUS EPITHELIAL CELL URINE 0-5 /hpf (0-5)
[2017-05-30 21:51] LABS: CALCIUM 15.9 MG/DL (8.5-10.1)
[2017-05-30 21:52] LABS: CALCIUM-PROTEIN CORRECTED 14.5 MG/DL (8.5-10.1)
--- NOTE | 2017-05-30 21:53 | RADRPT ---
EXAM DATE/TIME: 05/30/2017 21:41 [facility] COMPARISON: No previous studies available for comparison. INDICATIONS : Altered mental status. Generalized weakness. RADIATION DOSE: 59.06 CTDIvol (mGy) MEDICAL HISTORY : Chronic obstructive pulmonary disease. Hypertension. SURGICAL HISTORY : None. ENCOUNTER: Initial ACUITY: 1 day PAIN SCALE: 2/10 LOCATION: cranial TECHNIQUE: Multiple contiguous axial images were obtained of the head. Using automated exposure control and adj ustment of the mA and/or kV according to patient size, radiation dose was kept as low as reasonably a chievable to obtain optimal diagnostic quality images. DICOM format image data is available electro nically for review and comparison. FINDINGS: CEREBRUM: The ventricles are normal for age. No evidence of midline shift, mass lesion, hemorrhage or acute in farction. No extra-axial fluid collections are seen. POSTERIOR FOSSA: The cerebellum and brainstem are intact. The 4th ventricle is midline. The cerebellopontine angle i s unremarkable. EXTRACRANIAL: The visualized portion of the orbits is intact. SKULL: The calvaria is intact. No evidence of skull fracture. CONCLUSION: No acute disease. Esvin Cazares Jr., MD on May 30, 2017 at 21:50 Board Certified Radiologist. This report was verified electronically.
[2017-05-30] MEDS ORDERED: SODIUM CHLOR 0.9% 1000 ML INJ 1,000 ML IV ONE (22:00)
[2017-05-30] MEDS ORDERED: POTASSIUM CHLORIDE 20 MEQ CONTROLLED RELEASE TAB PO ONE (22:00)
[2017-05-30] MEDS ORDERED: SODIUM CHLOR 0.9% 1000 ML INJ 1,000 ML IV SCH ×2 (22:10→22:15)
[2017-05-30] MEDS ORDERED: NALOXONE HCL 0.4 MG/ML AMP IV PUSH PRN (22:15)
[2017-05-30] MEDS ORDERED: CIPROFLOXACIN 200 MG PREMIX 100 ML IV ONE (22:15)
[2017-05-31] VITALS (7 sets, daily range): BP systolic 106–137; BP diastolic 53–66; PULSE 54–73; RESP 18–20; TEMP 96.3–98.6; O2SAT 95–98
[2017-05-31 01:43] LABS: BICARBONATE 29.4 MEQ/L (21.0-32.0); CREATININE 1.5 MG/DL (0.50-1.00)
[2017-05-31 01:47] LABS: CALCIUM 13.2 MG/DL (8.5-10.1)
[2017-05-31 01:59] LABS: TOTAL PROTEIN 6.8 GM/DL (6.4-8.2)
[2017-05-31 02:00] LABS: CALCIUM-PROTEIN CORRECTED 13.5 MG/DL (8.5-10.1)
[2017-05-31] MEDS ORDERED: POTASSIUM CHLORIDE 20 MEQ CONTROLLED RELEASE TAB PO ONE (02:00)
[2017-05-31] MEDS: POTASSIUM CHLOR 10 MEQ PREMIX 100 ML IV SCH ×2 (02:21→04:07)
[2017-05-31 06:23] LABS: AUTOMATED NEUTROPHIL # 10.8 TH/MM3 (1.8-7.7); BASOPHIL # 0.1 TH/MM3 (0-0.2); BASOPHIL % 0.5 % (0.0-2.0); EOSINOPHIL # 0.1 TH/MM3 (0-0.4); EOSINOPHIL % 0.9 % (0.0-4.0); HEMATOCRIT 34.2 % (35.0-46.0); HEMOGLOBIN 11.7 GM/DL (11.6-15.3); LYMPH % 11.8 % (9.0-44.0); LYMPHOCYTE # 1.6 TH/MM3 (1.0-4.8); MEAN CELL VOLUME 89.4 FL (80.0-100.0); MEAN CORPUSCULAR HEMOGLOBIN 30.5 PG (27.0-34.0); MEAN CORPUSCULAR HGB CONC 34.1 % (32.0-36.0); MEAN PLATELET VOLUME 9.3 FL (7.0-11.0); MONO % 7.7 % (0.0-8.0); MONOCYTE # 1.1 TH/MM3 (0-0.9); NEUT % 79.1 % (16.0-70.0); PLATELET COUNT 248 TH/MM3 (150-450); RED BLOOD COUNT 3.82 MIL/MM3 (4.00-5.30); RED CELL DISTRIBUTION WIDTH 13.3 % (11.6-17.2); WHITE BLOOD COUNT 13.7 TH/MM3 (4.0-11.0)
[2017-05-31 07:00] LABS: BICARBONATE 29.4 MEQ/L (21.0-32.0); CREATININE 1.5 MG/DL (0.50-1.00)
[2017-05-31 07:07] LABS: CALCIUM 13.9 MG/DL (8.5-10.1)
[2017-05-31 07:26] LABS: CALCIUM-PROTEIN CORRECTED 14.1 MG/DL (8.5-10.1)
[2017-05-31] MEDS: SODIUM CHLORIDE 0.9% FLUSH 10 ML FLUSH IV FLUSH SCH ×2 (09:25→20:30)
[2017-05-31] MEDS: NS + KCL 20 MEQ INJ 1,000 ML IV SCH ×2 (09:25→17:15)
--- NOTE | 2017-05-31 09:47 | EKG ---
Date Performed: 05/30/2017 Time Performed: 20:30:11 PTAGE: 86 years EKG: Sinus rhythm WITH MARKED SINUS ARRHYTHMIA WITH FIRST DEGREE AV BLOCK MODERATE INTRAVENTRICULAR CONDUCTION DELAY N ONSPECIFIC T-WAVE ABNORMALITY ABNORMAL ECG PREVIOUS TRACING : 08/10/2015 23.31 DOCTOR: Eben Dejesus Interpretating Date/Time 05/31/2017 09:46:36
[2017-05-31] MEDS ORDERED: FUROSEMIDE 20 MG/2 ML VIAL IV PUSH ONE (12:45)
--- NOTE | 2017-05-31 12:56 | HHI.HP ---
[facility] Physician Marycarmen Crenshaw MD Admission Diagnosis hypercalcemia, hypokalemia, dehydration, acute kidney injury, UTI Diagnoses: Travel History International Travel<30 Days: No Contact w/Intl Traveler <30 Da: No Traveled to Known Affected Are: No History of Present Illness This patient's 86-year-old female with a history of hyperparathyroidism and had a parathyroidectomy (05/18) in 2016. Since that time she has been under her cmm technician care. She had some hypocalcemia recently and was recommended to increase her calcitriol. She also takes a vitamin D and calcium supplement. Patient also has some hypokalemia which had been prescribed a supplement per the patient. Patient has presented to the emergency room with 1 week of increased weakness and fatigue. Patient says she's had constipation and has generally felt unwell. She does live alone in her friend brought her to the emergency room where her calcium level was found to be 15.9. Patient says has had IV fluids and has been given also potassium for her hypokalemia. Patient is admitted to the hospital for further management of this. I did speak with the cmm technician office and recent changes in her medications were made as above. Patient also has come been on thyroid medicine and her TSH has been stable. Review of Systems Constitutional: COMPLAINS OF: Fatigue, Change in appetite Endocrine: DENIES: Abnorml menstrual pattern, Heat/cold intolerance, Polydipsia , Polyuria, Polyphagia Eyes: DENIES: Blurred vision, Diplopia, Eye inflammation, Eye pain, Vision loss , Photosensitivity, Double Vision Ears, nose, mouth, throat: DENIES: Tinnitus, Hearing loss, Vertigo, Nasal discharge, Oral lesions, Throat pain, Hoarseness, Ear Pain, Running Nose, Epistaxis, Sinus Pain, Toothache, Odynophagia Respiratory: DENIES: Apneas, Cough, Snoring, Wheezing, Hemoptysis, Sputum production, Shortness of breath Cardiovascular: DENIES: Chest pain, Palpitations, Syncope, Dyspnea on Exertion , PND, Lower Extremity Edema, Orthopnea, Claudication Gastrointestinal: COMPLAINS OF: Constipation, DENIES: Abdominal pain, Black stools, Bloody stools, Diarrhea, Nausea, Vomiting, Difficulty Swallowing, Anorexia Genitourinary: DENIES: Abnormal vaginal bleeding, Dysmenorrhea, Dyspareunia, Sexual dysfunction, Urinary frequency, Urinary incontinence, Urgency, Hematuria , Dysuria, Nocturia, Vaginal discharge Musculoskeletal: DENIES: Joint pain, Muscle aches, Stiffness, Joint Swelling, Back pain, Neck pain Integumentary: DENIES: Abnormal pigmentation, Pruritus, Rash, Nail changes, Breast masses, Breast skin changes, Nipple discharge Hematologic/lymphatic: DENIES: Bruising, Lymphadenopathy Immunologic/allergic: DENIES: Eczema, Urticaria Neurologic: DENIES: Abnormal gait, Headache, Localized weakness, Paresthesias, Seizures, Speech Problems, Tremor, Poor Balance Psychiatric: DENIES: Anxiety, Confusion, Mood changes, Depression, Hallucinations, Agitation, Suicidal Ideation, Homicidal Ideation, Delusions Except as stated in HPI: all other systems reviewed are Neg Past Family Social History Past Medical History Hyperparathyroidism COPD Hypothyroidism Past Surgical History Thyroidectomy One out of 4 parathyroidectomy Tonsillectomy Reported Medications Reviewed in the EMR, Calcitrol increased at last doctor visit in April Allergies: Coded Allergies: penicillin G (Verified Allergy, Intermediate, Rash, 05/30/17) sulfite (Verified Allergy, Intermediate, Rash, 05/30/17) Active Ordered Medications Reviewed in the EMR Family History Family history of hypertension Social History Lives alone No tobacco or alcohol dependency Physical Exam Vital Signs Vital Signs Date Time Temp Pulse Resp B/P (MAP) Pulse Ox O2 Delivery O2 Flow Rate FiO2 05/31/17 08:00 98.4 54 18 106/59 (75) 95 05/31/17 04:00 96.8 54 20 114/57 (76) 95 05/31/17 00:53 64 05/31/17 00:00 96.6 64 20 137/66 (89) 97 05/30/17 23:46 05/30/17 21:35 72 26 145/64 (91) 97 Room Air 05/30/17 20:44 95 Room Air 05/30/17 20:08 73 16 123/60 (81) 93 Room Air 05/30/17 20:08 93 Room Air 05/30/17 19:03 97.3 66 18 118/58 (78) 96 Physical Exam GENERAL: This is a well-nourished, well-developed patient, in no apparent distress. SKIN: No rashes, ecchymoses or lesions. Cool and dry. HEAD: Atraumatic. Normocephalic. No temporal or scalp tenderness. EYES: Pupils equal round and reactive. Extraocular motions intact. No scleral icterus. No injection or drainage. ENT: Nose without bleeding, purulent drainage or septal hematoma. Throat without erythema, tonsillar hypertrophy or exudate. Uvula midline. Airway patent. NECK: Trachea midline. No JVD or lymphadenopathy. Supple, nontender, no meningeal signs. CARDIOVASCULAR: Regular rate and rhythm without murmurs, gallops, or rubs. RESPIRATORY: Clear to auscultation. Breath sounds equal bilaterally. No wheezes , rales, or rhonchi. GASTROINTESTINAL: Abdomen soft, non-tender, nondistended. No hepato-splenomegaly , or palpable masses. No guarding. MUSCULOSKELETAL: Extremities without clubbing, cyanosis, or edema. No joint tenderness, effusion, or edema noted. No calf tenderness. Negative Homans sign bilaterally. NEUROLOGICAL: Awake and alert. Cranial nerves II through XII intact. Motor and sensory grossly within normal limits. Five out of 5 muscle strength in all muscle groups. Normal speech. Laboratory Laboratory Tests Test 05/30/17 20:40 05/30/17 21:37 05/31/17 00:44 05/31/17 05:46 White Blood Count 16.8 13.7 Red Blood Count 4.69 3.82 Hemoglobin 13.5 11.7 Hematocrit 41.6 34.2 Mean Corpuscular Volume 88.8 89.4 Mean Corpuscular Hemoglobin 28.9 30.5 Mean Corpuscular Hemoglobin Concent 32.5 34.1 Red Cell Distribution Width 13.2 13.3 Platelet Count 324 248 Mean Platelet Volume 9.0 9.3 Neutrophils (%) (Auto) 87.9 79.1 Lymphocytes (%) (Auto) 6.0 11.8 Monocytes (%) (Auto) 5.6 7.7 Eosinophils (%) (Auto) 0.2 0.9 Basophils (%) (Auto) 0.3 0.5 Neutrophils # (Auto) 14.8 10.8 Lymphocytes # (Auto) 1.0 1.6 Monocytes # (Auto) 0.9 1.1 Eosinophils # (Auto) 0.0 0.1 Basophils # (Auto) 0.1 0.1 CBC Comment DIFF FINAL DIFF FINAL Differential Comment Blood Urea Nitrogen 32 27 27 Creatinine 1.80 1.50 1.50 Random Glucose 121 107 86 Total Protein 8.7 6.8 7.0 Albumin 4.0 Calcium Level 15.9 13.2 13.9 Alkaline Phosphatase 51 Aspartate Amino Transf (AST/SGOT) 21 Alanine Aminotransferase (ALT/SGPT) 25 Total Bilirubin 0.7 Sodium Level 136 139 140 Potassium Level 2.9 2.6 3.6 Chloride Level 95 104 105 Carbon Dioxide Level 33.3 29.4 29.4 Anion Gap 8 6 6 Estimat Glomerular Filtration Rate 27 33 33 Lactic Acid Level 1.4 Protein Corrected Calcium 14.5 13.5 14.1 Total Creatine Kinase 85 Troponin I LESS THAN 0.02 Thyroid Stimulating Hormone 3rd Gen 1.490 Urine Color YELLOW Urine Turbidity CLEAR Urine pH 7.0 Urine Specific [place] 1.008 Urine Protein NEG Urine Glucose (UA) NEG Urine Ketones NEG Urine Occult Blood NEG Urine Nitrite NEG Urine Bilirubin NEG Urine Leukocyte Esterase SMALL Urine RBC 0-3 Urine WBC 9-14 Urine WBC Clumps FEW Urine Squamous Epithelial Cells 0-5 Urine Hyaline Casts 3-5 Microscopic Urinalysis Comment CATH-CULTURE IND Date/Time Source Procedure Growth Status 05/30/17 21:37 Urine Catheterized Urine Urine Culture Pending Received Result Diagram: 05/31/17 0546 05/31/17 0546 Imaging Last Impressions Head CT 05/30/172015 Signed Impressions: Service Date/Time: Tuesday, May 30, 2017 21:41 - CONCLUSION: No acute disease. Esvin Cazares Jr., MD Chest X-Ray 05/30/172015 Signed Impressions: Service Date/Time: Tuesday, May 30, 2017 20:50 - CONCLUSION: Hyperinflation suggesting COPD. No acute infiltrate or effusion. Esvin Cazares Jr., MD Septic Shock Reassessment Septic shock perfusion: reassessment completed Caprini VTE Risk Assessment Caprini VTE Risk Assessment: Mod/High Risk (score >= 2) Caprini Risk Assessment Model Point Value = 1 Point Value = 2 Point Value = 3 Point Value = 5 Age 41-60 Minor surgery BMI > 25 kg/m2 Swollen legs Varicose veins or History of unexplained or recurrent spontaneous Oral contraceptives or hormone replacement Sepsis (< 1 month) Serious lung disease, including pneumonia (< 1 month) Abnormal pulmonary function Acute myocardial infarction Congestive heart failure (< 1 month) History of inflammatory bowel disease Medical patient at bed rest Age 61-74 Arthroscopic surgery Major open surgery (> 45 min) Laparoscopic surgery (> 45 min) Malignancy Confined to bed (> 72 hours) Immobilizing plaster cast Central venous access Age >= 75 History of VTE Family history of VTE Factor V Leiden Prothrombin [id number] Lupus anticoagulant Anticardiolipin antibodies Elevated serum homocysteine Heparin-induced thrombocytopenia Other congenital or acquired thrombophilia Stroke (< 1 month) Elective arthroplasty Hip, pelvis, or leg fracture Acute spinal cord injury (< 1 month) Prophylaxis Regimen Total Risk Factor Score Risk Level Prophylaxis Regimen 0-1 Low Early ambulation 2 Moderate Order ONE of the following: *Sequential Compression Device (SCD) *Heparin 5000 units SQ BID 3-4 Higher Order ONE of the following medications: *Heparin 5000 units SQ TID *Enoxaparin/Lovenox 40 mg SQ daily (WT < 150 kg, CrCl > 30 mL/min) *Enoxaparin/Lovenox 30 mg SQ daily (WT < 150 kg, CrCl > 10-29 mL/min) *Enoxaparin/Lovenox 30 mg SQ BID (WT < 150 kg, CrCl > 30 mL/min) AND/OR *Sequential Compression Device (SCD) 5 or more Highest Order ONE of the following medications: *Heparin 5000 units SQ TID (Preferred with Epidurals) *Enoxaparin/Lovenox 40 mg SQ daily (WT < 150 kg, CrCl > 30 mL/min) *Enoxaparin/Lovenox 30 mg SQ daily (WT < 150 kg, CrCl > 10-29 mL/min) *Enoxaparin/Lovenox 30 mg SQ BID (WT < 150 kg, CrCl > 30 mL/min) AND *Sequential Compression Device (SCD) Assessment and Plan Problem List: (1) Hypercalcemia ICD Code: E83.52 - Hypercalcemia Status: Acute Plan: We'll continue with IV hydration, Lasix and calcitonin Follow-up serial electrolyte levels I did discuss this patient with the primary care doctor office (2) Hypokalemia ICD Code: E87.6 - Hypokalemia Status: Acute Plan: We'll continue to replace potassium Follow-up magnesium (3) Dehydration ICD Code: E86.0 - Dehydration Status: Acute Plan: Continue hydration Code Status DO NOT RESUSCITATE Discussed Condition With Patient endocrinology office Physician Certification 2 Midnight Certification Type: Admission for Inpatient Services Order for Inpatient Services The services are ordered in accordance with Medicare regulations or non- Medicare payer requirements, as applicable. In the case of services not specified as inpatient-only, they are appropriately provided as inpatient services in accordance with the 2-midnight benchmark. Estimated LOS (days): 3 3 days is the estimated time the patient will need to remain in the hospital, assuming treatment plan goals are met and no additional complications. Post-Hospital Plan: Home Mayela Arambula MD May 31, 2017 12:56
[2017-05-31] MEDS ORDERED: ENOXAPARIN SODIUM 40 MG/0.4 ML SYRINGE SQ SCH (13:00)
[2017-05-31 18:47] LABS: BICARBONATE 27.6 MEQ/L (21.0-32.0); CREATININE 1.5 MG/DL (0.50-1.00)
[2017-05-31 18:58] LABS: CALCIUM 12.6 MG/DL (8.5-10.1)
[2017-05-31 19:20] LABS: TOTAL PROTEIN 6.9 GM/DL (6.4-8.2)
[2017-05-31 19:32] LABS: CALCIUM-PROTEIN CORRECTED 12.8 MG/DL (8.5-10.1)
[2017-05-31] MEDS: BUDESONIDE-FORMOTEROL 80/4.5 MCG INHALER INH SCH (20:31)
[2017-06-01] VITALS: BP 119/56; PULSE 59; RESP 20; TEMP 98.4; O2SAT 96
[2017-06-01] MEDS: NS + KCL 20 MEQ INJ 1,000 ML IV SCH ×2 (01:57→09:02)
[2017-06-01 04:00] VITALS: BP 124/64; PULSE 59; RESP 20; TEMP 98.9; O2SAT 94
[2017-06-01] MEDS ORDERED: LEVOTHYROXINE SODIUM 100 MCG TAB PO SCH (06:00)
[2017-06-01 07:02] LABS: BICARBONATE 25.8 MEQ/L (21.0-32.0); CREATININE 1.3 MG/DL (0.50-1.00)
[2017-06-01] MEDS ORDERED: POTASSIUM CHLORIDE 20 MEQ CONTROLLED RELEASE TAB PO ONE (07:30)
[2017-06-01 08:00] VITALS: BP 133/63; PULSE 65; RESP 14; TEMP 96.9; O2SAT 95
[2017-06-01 08:01] VITALS: PULSE 59
[2017-06-01] MEDS ORDERED: CALCITONIN SALM 200 UNIT/SPRAY 3.7 ML BTLN NASAL SCH (09:00)
[2017-06-01] MEDS: SODIUM CHLORIDE 0.9% FLUSH 10 ML FLUSH IV FLUSH SCH (09:00)
[2017-06-01] MEDS ORDERED: PANTOPRAZOLE SOD 20 MG DELAYED RELEASE TAB PO SCH (09:00)
[2017-06-01] MEDS: BUDESONIDE-FORMOTEROL 80/4.5 MCG INHALER INH SCH (09:02)
[2017-06-01] MEDS ORDERED: CALC1TAB12 PO (11:39)
--- NOTE | 2017-06-01 11:40 | HHI.DS ---
Discharge Summary Admission Date May 30, 2017 at 22:16 Discharge Date: Jun 01, 2017 Admitting Diagnosis hypercalcemia, hypokalemia, dehydration, acute kidney injury, UTI (1) Hypercalcemia ICD Code: E83.52 - Hypercalcemia Status: Acute (2) Hypokalemia ICD Code: E87.6 - Hypokalemia Status: Acute (3) Dehydration ICD Code: E86.0 - Dehydration Status: Acute Procedures None Brief History - From Admission This patient's 86-year-old female with a history of hyperparathyroidism and had a parathyroidectomy (05/18) in 2015. Since that time she has been under her java j2ee technical lead care. She had some hypocalcemia recently and was recommended to increase her calcitriol. She also takes a vitamin D and calcium supplement. Patient also has some hypokalemia which had been prescribed a supplement per the patient. Patient has presented to the emergency room with 1 week of increased weakness and fatigue. Patient says she's had constipation and has generally felt unwell. She does live alone in her friend brought her to the emergency room where her calcium level was found to be 15.9. Patient says has had IV fluids and has been given also potassium for her hypokalemia. Patient is admitted to the hospital for further management of this. I did speak with the java j2ee technical lead office and recent changes in her medications were made as above. Patient also has come been on thyroid medicine and her TSH has been stable. CBC/BMP: 05/31/17 0546 06/01/17 0533 Significant Findings Laboratory Tests Test 05/30/17 20:40 05/30/17 21:37 05/31/17 00:44 05/31/17 05:46 White Blood Count 16.8 TH/MM3 (4.0-11.0) 13.7 TH/MM3 (4.0-11.0) Neutrophils (%) (Auto) 87.9 % (16.0-70.0) 79.1 % (16.0-70.0) Lymphocytes (%) (Auto) 6.0 % (9.0-44.0) Neutrophils # (Auto) 14.8 TH/MM3 (1.8-7.7) 10.8 TH/MM3 (1.8-7.7) Blood Urea Nitrogen 32 MG/DL (7-18) 27 MG/DL (7-18) 27 MG/DL (7-18) Creatinine 1.80 MG/DL (0.50-1.00) 1.50 MG/DL (0.50-1.00) 1.50 MG/DL (0.50-1.00) Random Glucose 121 MG/DL (74-106) 107 MG/DL (74-106) Total Protein 8.7 GM/DL (6.4-8.2) Calcium Level 15.9 MG/DL (8.5-10.1) 13.2 MG/DL (8.5-10.1) 13.9 MG/DL (8.5-10.1) Potassium Level 2.9 MEQ/L (3.5-5.1) 2.6 MEQ/L (3.5-5.1) Chloride Level 95 MEQ/L (98-107) Carbon Dioxide Level 33.3 MEQ/L (21.0-32.0) Estimat Glomerular Filtration Rate 27 ML/MIN (>89) 33 ML/MIN (>89) 33 ML/MIN (>89) Protein Corrected Calcium 14.5 MG/DL (8.5-10.1) 13.5 MG/DL (8.5-10.1) 14.1 MG/DL (8.5-10.1) Troponin I LESS THAN 0.02 NG/ML Urine Leukocyte Esterase SMALL (NEG) Urine WBC 9-14 /hpf (0-5) Urine WBC Clumps FEW (NONE) Urine Hyaline Casts 3-5 /lpf (RARE) Red Blood Count 3.82 MIL/MM3 (4.00-5.30) Hematocrit 34.2 % (35.0-46.0) Monocytes # (Auto) 1.1 TH/MM3 (0-0.9) Test 05/31/17 13:30 05/31/17 17:54 06/01/17 05:33 Blood Urea Nitrogen 29 MG/DL (7-18) 27 MG/DL (7-18) Creatinine 1.50 MG/DL (0.50-1.00) 1.30 MG/DL (0.50-1.00) Calcium Level 12.6 MG/DL (8.5-10.1) 11.0 MG/DL (8.5-10.1) Potassium Level 3.1 MEQ/L (3.5-5.1) 3.2 MEQ/L (3.5-5.1) Estimat Glomerular Filtration Rate 33 ML/MIN (>89) 39 ML/MIN (>89) Protein Corrected Calcium 12.8 MG/DL (8.5-10.1) Chloride Level 113 MEQ/L (98-107) Imaging Last Impressions Head CT 05/30/172015 Signed Impressions: Service Date/Time: Tuesday, May 30, 2017 21:41 - CONCLUSION: No acute disease. Esvin Cazares Jr., MD Chest X-Ray 05/30/172015 Signed Impressions: Service Date/Time: Tuesday, May 30, 2017 20:50 - CONCLUSION: Hyperinflation suggesting COPD. No acute infiltrate or effusion. Esvin Cazares Jr., MD PE at Discharge GENERAL: This is a well-nourished, well-developed patient, in no apparent distress. CARDIOVASCULAR: Regular rate and rhythm without murmurs, gallops, or rubs. RESPIRATORY: Clear to auscultation. Breath sounds equal bilaterally. No wheezes , rales, or rhonchi. GASTROINTESTINAL: Abdomen soft, non-tender, nondistended. Normal active bowel sounds MUSCULOSKELETAL: Extremities without clubbing, cyanosis, or edema. NEURO: Alert & Oriented x4 to person, place, time, situation. Moves all ext x4 Hospital Course Patient was seen in follow-up for hypercalcemia. She was dehydrated. Patient required IV fluids with little Lasix to bring her past calcium down. She also required potassium replacement and has had potassium at home. Recently her calcium was increased by her primary java j2ee technical lead and she is status post parathyroidectomy. She did quite well and was discharged home to follow-up with her java j2ee technical lead Pt Condition on Discharge: Good Discharge Disposition: Discharge Home Discharge Time: <= 30 minutes Discharge Instructions DIET: Follow Instructions for: Diabetic Diet Activities you can perform: Regular-No Restrictions Follow up Referrals: Endocrinology - 1 Week with gagan New Medications: Calcium Carbonate-Cholecalciferol (Calcium 500 +D) 500-400 Mg-Unit Tab 1 TAB PO BID for Calcium Supplement, #62 TAB 0 Refills Continued Medications: Calcitriol (Calcitriol) 0.25 Mcg Cap 0.25 MCG PO BID NEB for Calcium Supplement, #30 CAP 0 Refills Fluticasone-Salmeterol Inh (Advair Diskus Inh) 100-50 Mcg/Blist Aer 1 PUFF INH BID for Asthma Management, #1 INHALER 0 Refills Rinse mouth after use. Furosemide (Furosemide) 20 Mg Tab 20 MG PO DAILY, #30 TAB 0 Refills Levothyroxine (Synthroid) 100 Mcg Tab 100 MCG PO DAILY for Thyroid, #30 TAB 0 Refills Losartan-Hydrochlorothiazide (Losartan-Hydrochlorothiazide) 50-12.5 Mg Tab 1 TAB PO DAILY for Blood Pressure Management, #30 TAB 0 Refills Magnesium Oxide (Magnesium Oxide) 400 Mg Tab 400 MG PO DAILY for Nutritional Supplement, TAB 0 Refills Omeprazole (Omeprazole) 20 Mg Tab 20 MG PO DAILY, #30 TAB 0 Refills Potassium Chloride ER (Potassium Chloride ER) 10 Meq Tab 10 MEQ PO DAILY for Electrolyte Replacement, #30 TAB 0 Refills Discontinued Medications: Calcium Carbonate-Cholecalciferol (Calcium 500/D) 500-400 Mg-Unit Chew 1 TAB CHEW TID NEB, TAB Mayela Arambula MD Jun 01, 2017 11:40
[2017-06-01 12:00] VITALS: BP 109/58; PULSE 60; RESP 12; TEMP 97.6; O2SAT 96
[2017-06-01] MEDS ORDERED: ENOXAPARIN SODIUM 30 MG/0.3 ML SYRINGE SQ SCH (13:00)
== END 2017-06-01 15:39 | disposition home or self-care (01) | DRG 641 ==
LOC: PHED 18:55 → PHEDA 22:16 → PH3A 23:27
PROVIDERS: ADMIT Hospitalist; ATTEND Hospitalist
DX: E86.0 Dehydration (principal); N17.9 Acute kidney failure, unspecified; E83.52 Hypercalcemia; J44.9 Chronic obstructive pulmonary disease, unspecified; E87.6 Hypokalemia; Z66 Do not resuscitate; E03.9 Hypothyroidism, unspecified; W18.30XA Fall on same level, unspecified, initial encounter; K59.00 Constipation, unspecified
CPT/HCPCS: 70450; 71045; 80048; 80053; 81001; 82550; 82652; 83605; 83735; 84155; 84443; 84484; 85025; 87086; 93005; 96360; J0744; J1650; J1940; J3480; J7030; J7040

== ENCOUNTER → 2017-06-07 | Outpatient (CLI) | payer MEDICARE ==
[~2017-06-07] MED LIST changes: +CALC1TAB12 PO; -CALCCHW4 CHEW; -PRED50 PO
[2017-06-07 17:29] LABS: BILIRUBIN, URINE NEG (NEG); BLOOD, URINE NEG (NEG); GLUCOSE,URINE NEG (NEG); KETONE, URINE NEG (NEG); MUCUS URINE FEW /lpf (OCC); NITRITE,URINE NEG (NEG); PH, URINE 7.5 (5.0-8.5); SQUAMOUS EPITHELIAL CELL URINE <1 /hpf (0-5); URINE COLOR LIGHT-YELLOW (YELLW/STRAW); URINE LEUKOCYTE ESTERASE SMALL (NEG)
== END ==
LOC: PLAB 14:05
PROVIDERS: ATTEND Legal Medicine
DX: K57.90 Diverticulosis of intestine, part unspecified, without perforation or abscess without bleeding (principal); I10 Essential (primary) hypertension; E55.9 Vitamin D deficiency, unspecified
CPT/HCPCS: 81001

== ENCOUNTER → 2017-06-12 | Outpatient (CLI) | payer MEDICARE ==
[2017-06-12 10:22] LABS: AUTOMATED NEUTROPHIL # 7.2 TH/MM3 (1.8-7.7); BASOPHIL # 0.1 TH/MM3 (0-0.2); EOSINOPHIL # 0.3 TH/MM3 (0-0.4); EOSINOPHIL % 2.7 % (0.0-4.0); HEMATOCRIT 35.3 % (35.0-46.0); HEMOGLOBIN 12.9 GM/DL (11.6-15.3); LYMPH % 20.4 % (9.0-44.0); LYMPHOCYTE # 2.1 TH/MM3 (1.0-4.8); MEAN CELL VOLUME 86.7 FL (80.0-100.0); MEAN CORPUSCULAR HEMOGLOBIN 31.8 PG (27.0-34.0); MEAN PLATELET VOLUME 8.8 FL (7.0-11.0); MONO % 7.3 % (0.0-8.0); MONOCYTE # 0.8 TH/MM3 (0-0.9); NEUT % 68.6 % (16.0-70.0); PLATELET COUNT 363 TH/MM3 (150-450); RED BLOOD COUNT 4.06 MIL/MM3 (4.00-5.30); RED CELL DISTRIBUTION WIDTH 14.2 % (11.6-17.2); WHITE BLOOD COUNT 10.5 TH/MM3 (4.0-11.0)
[2017-06-12 10:27] LABS: MEAN CORPUSCULAR HGB CONC 36.6 % (32.0-36.0)
[2017-06-12 10:37] LABS: ALBUMIN 3.7 GM/DL (3.4-5.0); AST (GOT) 13 U/L (15-37); BICARBONATE 29.2 MEQ/L (21.0-32.0); BLOOD UREA NITROGEN 18 MG/DL (7-18); CALCIUM 9.9 MG/DL (8.5-10.1); CHLORIDE 102 MEQ/L (98-107); GLOMERULAR FILTRATION RATE 39 ML/MIN (>89); GLUCOSE,FASTING 82 MG/DL (74-99); SODIUM (NA) 138 MEQ/L (136-145)
[2017-06-12 10:39] LABS: ALT (GPT) 20 U/L (10-53)
[2017-06-12 10:41] LABS: ALKALINE PHOSPHATASE 49 U/L (45-117); TOTAL BILIRUBIN ADULT 0.3 MG/DL (0.2-1.0); TOTAL PROTEIN 8.2 GM/DL (6.4-8.2)
[2017-06-12 10:48] LABS: CHOLESTEROL/ HDL RATIO 3.1 RATIO; HDL CHOLESTEROL 67.6 MG/DL (40.0-60.0)
== END ==
LOC: PLAB 07:35
PROVIDERS: ATTEND Legal Medicine
DX: E83.52 Hypercalcemia (principal); E21.0 Primary hyperparathyroidism; E89.0 Postprocedural hypothyroidism; E55.9 Vitamin D deficiency, unspecified; K57.90 Diverticulosis of intestine, part unspecified, without perforation or abscess without bleeding; I10 Essential (primary) hypertension
CPT/HCPCS: 36415; 80053; 80061; 82652; 83970; 84443; 85025

== ENCOUNTER → 2017-06-26 | Outpatient (CLI) | payer MEDICARE ==
[2017-06-26 16:26] LABS: BICARBONATE 30.9 MEQ/L (21.0-32.0); CALCIUM 9.8 MG/DL (8.5-10.1); CREATININE 1.2 MG/DL (0.50-1.00); MAGNESIUM 2.2 MG/DL (1.5-2.5)
== END ==
LOC: PLAB 13:53
PROVIDERS: ATTEND Legal Medicine
DX: R25.2 Cramp and spasm (principal); E89.0 Postprocedural hypothyroidism; I10 Essential (primary) hypertension
CPT/HCPCS: 36415; 80048; 83735; 84443

== ENCOUNTER 2017-07-16 09:42 | Inpatient (IN) | payer MEDICARE ==
[~2017-07-16] VITALS: Ht 160 cm; Wt 68.0 kg
[2017-07-16 09:49] VITALS: BP 155/70; PULSE 89; RESP 26; TEMP 97.4; O2SAT 96
--- NOTE | 2017-07-16 10:13 | PD ---
HPI Chief Complaint: Fall Time Seen by Provider: 09:52 Travel History International Travel<30 days: No Contact w/Intl Traveler<30days: No Traveled to known affect area: No History of Present Illness HPI 86yo F with PMH of COPD, HTN, hyperparathyroidism here with c/o right hip pain after fall today. Pt said she tripped on her right heel this morning around 8: 30am and fell on her right hip and arm. Denies any head trauma, LOC, dizziness , chest pain, sob, n/v, abdominal pain, focal weakness or numbness. Pain is mainly in right hip and worst with movement. Pt has not attempted to walk. She was given morphine 8mg by EVAC. She does have a skin tear in right forearm but pain only where the skin tear is. Unknown tetanus. PFSH Past Medical History Asthma: Yes Heart Rhythm Problems: No Cancer: No Cardiovascular Problems: Yes High Cholesterol: Yes Chest Pain: No Congestive Heart Failure: No COPD: Yes Cerebrovascular Accident: No Diabetes: No Diminished Hearing: No Endocrine: No Gastrointestinal Disorders: No Genitourinary: No Headaches: No Hepatitis: No Hiatal Hernia: No Hypertension: Yes Implanted Vascular Access Dvce: No Medical other: No Musculoskeletal: No Neurologic: Yes Psychiatric: No Reproductive: No Respiratory: Yes (COPD) Migraines: No Seizures: No Sleep Apnea: No Thyroid Disease: Yes Tetanus Vaccination: Unknown Influenza Vaccination: Yes Menopausal: Yes : 0 Para: 0 Miscarriage: 0 : 0 Past Surgical History Abdominal Surgery: No Cardiac Surgery: No Ear Surgery: No Endocrine Surgery: No Eye Surgery: No Genitourinary Surgery: No Gynecologic Surgery: No Neurologic Surgery: No Oral Surgery: Yes (TONSILECTOMY) Thoracic Surgery: No Tonsillectomy: Yes Other Surgery: Yes (PARATHYROIDECTOMY) Social History Alcohol Use: No Tobacco Use: No Substance Use: No Allergies-Medications (Allergen,Severity, Reaction): Coded Allergies: penicillin G (Verified Allergy, Intermediate, Rash, 07/16/17) sulfite (Verified Allergy, Intermediate, Rash, 07/16/17) Reported Meds & Prescriptions Reported Meds & Active Scripts Active Calcium 500 +D (Calcium Carbonate-Cholecalciferol) 500-400 Mg-Unit Tab 1 Tab PO BID Reported Synthroid (Levothyroxine Sodium) 100 Mcg Tab 100 Mcg PO DAILY Probiotic (Lactobacillus Acidophilus) 10 Billion Cell Cap 1 Cap PO DAILY Proventil Hfa 6.7 GM Inh (Albuterol Sulfate) 90 Mcg/Act Aer 2 Puff INH Q4-6H PRN Albuterol Neb (Albuterol Sulfate) 0.63 Mg/3 Ml Neb 0.63 Mg NEB TID NEB PRN Cecile Allergy (Fexofenadine HCl) 60 Mg Tab 60 Mg PO BID Klor-Con 10 (Potassium Chloride) 10 Meq Tab 10 Meq PO DAILY Magnesium Oxide 400 Mg Tab 400 Mg PO DAILY Synthroid (Levothyroxine Sodium) 100 Mcg Tab 100 Mcg PO DAILY Calcitriol 0.25 Mcg Cap 0.25 Mcg PO BID NEB Losartan-Hydrochlorothiazide 50-12.5 Mg Tab 1 Tab PO DAILY Furosemide 20 Mg Tab 20 Mg PO DAILY Omeprazole 20 Mg Tab 20 Mg PO DAILY Advair Diskus Inh (Fluticasone-Salmeterol Inh) 100-50 Mcg/Blist Aer 1 Puff INH BID Rinse mouth after use. Review of Systems Except as stated in HPI: all other systems reviewed are Neg Physical Exam Narrative GENERAL: 86yo F in moderate distress. SKIN: Focused skin assessment warm/dry. HEAD: Atraumatic. Normocephalic. EYES: Pupils equal and round. No scleral icterus. No injection or drainage. ENT: No nasal bleeding or discharge. Mucous membranes pink and moist. NECK: Trachea midline. No JVD. CARDIOVASCULAR: Regular rate and rhythm. No murmur appreciated. RESPIRATORY: No accessory muscle use. Clear to auscultation. Breath sounds equal bilaterally. GASTROINTESTINAL: Abdomen soft, non-tender, nondistended. No rebound tenderness or guarding. MUSCULOSKELETAL: Right hip: +TTP right proximal femur. No ecchymoses, no open wounds. No erythema. Sensation intact. Distal pulses intact. Right upper extremity: +Skin tear distal ulna. Tender where the skin tear is. Distal pulses intact. FROM in right elbow and wrist. NEUROLOGICAL: Awake and alert. No obvious cranial nerve deficits. Motor grossly within normal limits. Normal speech. PSYCHIATRIC: Appropriate mood and affect; insight and judgment normal. Data Data Last Documented VS Vital Signs Date Time Temp Pulse Resp B/P (MAP) Pulse Ox O2 Delivery O2 Flow Rate FiO2 07/16/17 09:49 97.4 89 26 155/70 (98) 96 Orders Orders Hip, Uni(Ap&Lat) W Ap Pelvis (07/16/17 ) Forearm (2vws) (07/16/17 ) Tetanus/Diphtheria Tox Adult (Tetanus/Di (07/16/17 10:15) Complete Blood Count With Diff (07/16/17 10:02) Basic Metabolic Panel (Bmp) (07/16/17 10:02) Prothrombin Time / Inr (Pt) (07/16/17 10:02) Act Partial Throm Time (Ptt) (07/16/17 10:02) Type And Screen (07/16/17 10:02) Electrocardiogram (07/16/17 ) Chest, Single Ap (07/16/17 ) Morphine Inj (Morphine Inj) (07/16/17 11:00) Consult Orthopedic (07/16/17 ) Labs Laboratory Tests Test 07/16/17 10:06 White Blood Count 13.2 TH/MM3 Red Blood Count 3.95 MIL/MM3 Hemoglobin 11.9 GM/DL Hematocrit 34.8 % Mean Corpuscular Volume 88.1 FL Mean Corpuscular Hemoglobin 30.0 PG Mean Corpuscular Hemoglobin Concent 34.1 % Red Cell Distribution Width 13.9 % Platelet Count 344 TH/MM3 Mean Platelet Volume 9.1 FL Neutrophils (%) (Auto) 75.4 % Lymphocytes (%) (Auto) 13.4 % Monocytes (%) (Auto) 9.0 % Eosinophils (%) (Auto) 1.5 % Basophils (%) (Auto) 0.7 % Neutrophils # (Auto) 10.0 TH/MM3 Lymphocytes # (Auto) 1.8 TH/MM3 Monocytes # (Auto) 1.2 TH/MM3 Eosinophils # (Auto) 0.2 TH/MM3 Basophils # (Auto) 0.1 TH/MM3 CBC Comment DIFF FINAL Differential Comment Prothrombin Time 10.4 SEC Prothromb Time International Ratio 1.0 RATIO Activated Partial Thromboplast Time 25.0 SEC Blood Urea Nitrogen 20 MG/DL Creatinine 1.09 MG/DL Random Glucose 106 MG/DL Calcium Level 8.5 MG/DL Sodium Level 137 MEQ/L Potassium Level 3.1 MEQ/L Chloride Level 102 MEQ/L Carbon Dioxide Level 27.6 MEQ/L Anion Gap 7 MEQ/L Estimat Glomerular Filtration Rate 47 ML/MIN MDM Medical Decision Making Medical Screen Exam Complete: Yes Emergency Medical Condition: Yes Interpretation(s) EKG: NSR 84bpm. Normal axis. ST depression diffusely. No ST segment elevation. Differential Diagnosis Fracture vs. contusion Narrative Course 86yo F with right hip pain s/p mechanical fall today. Denies any anticoagulation. Pt unable to walk after. Denies any head trauma, focal weakness or numbness. Xray right hip showed intertrochanteric fracture right hip. Xray right forearm negative. Updated tetanus. Pt is in a lot of pain still so given morphine 4mg IV. Last PO intake was 7:30am today. CXR obtained for preop purposes and showed cardiomegaly with possible mild failure. Pt denies any chest pain or sob. O2 sat 96% on RA. Labs reviewed, mild leukocytosis at 13.2. H/H 11.9/34.8. Mild hypokalemia at 3.1, replaced orally. Discussed with resident physician and accepted to their service. Orthopedic consult placed. Diagnosis Primary Impression: Intertrochanteric fracture of right hip Qualified Codes: S72.141A - Displaced intertrochanteric fracture of right femur, initial encounter for closed fracture Admitting Information Admitting Physician Requests: it Dori Babcock DO Jul 16, 2017 10:13
[2017-07-16] MEDS ORDERED: TETANUS/DIPHTHERIA TOXOID ADULT 0.5 ML VIAL IM ONE (10:15)
[2017-07-16 10:40] LABS: BASOPHIL # 0.1 TH/MM3 (0-0.2); BASOPHIL % 0.7 % (0.0-2.0); EOSINOPHIL # 0.2 TH/MM3 (0-0.4); EOSINOPHIL % 1.5 % (0.0-4.0); HEMATOCRIT 34.8 % (35.0-46.0); HEMOGLOBIN 11.9 GM/DL (11.6-15.3); LYMPH % 13.4 % (9.0-44.0); LYMPHOCYTE # 1.8 TH/MM3 (1.0-4.8); MEAN CELL VOLUME 88.1 FL (80.0-100.0); MEAN CORPUSCULAR HGB CONC 34.1 % (32.0-36.0); MEAN PLATELET VOLUME 9.1 FL (7.0-11.0); MONOCYTE # 1.2 TH/MM3 (0-0.9); NEUT % 75.4 % (16.0-70.0); PLATELET COUNT 344 TH/MM3 (150-450); RED BLOOD COUNT 3.95 MIL/MM3 (4.00-5.30); RED CELL DISTRIBUTION WIDTH 13.9 % (11.6-17.2); WHITE BLOOD COUNT 13.2 TH/MM3 (4.0-11.0)
--- NOTE | 2017-07-16 10:51 | RADRPT ---
EXAM DATE/TIME: 07/16/2017 10:32 [facility] COMPARISON: No previous studies available for comparison. INDICATIONS : Right hip pain since falling today. MEDICAL HISTORY : Chronic obstructive pulmonary disease. Hypertension. SURGICAL HISTORY : None. ENCOUNTER: Initial ACUITY: 1 day PAIN SCORE: 10/10 LOCATION: Right hip. FINDINGS: Comminuted intertrochanteric fracture right hip with marked angulation. Femoral head aligned with th e acetabulum. Pelvic ring intact. CONCLUSION: Intertrochanteric fracture right hip Fausto Duval MD FACR on July 16, 2017 at 10:50 Board Certified Radiologist. This report was verified electronically.
--- NOTE | 2017-07-16 10:51 | RADRPT ---
EXAM DATE/TIME: 07/16/2017 10:24 [facility] COMPARISON: No previous studies available for comparison. INDICATIONS : Right forearm abrasion after falling today. MEDICAL HISTORY : Chronic obstructive pulmonary disease. Hypertension. SURGICAL HISTORY : None. ENCOUNTER: Initial ACUITY: 1 day PAIN SCORE: 3/10 LOCATION: Right forearm. FINDINGS: Two view examination of the right forearm demonstrates no evidence of fracture or dislocation. Bony mineralization is normal. The soft tissue structures are intact. CONCLUSION: Negative for fracture or dislocation. Follow up in 7-10 days is suggested if symptoms persist. Fausto Duval MD FACR on July 16, 2017 at 10:51 Board Certified Radiologist. This report was verified electronically.
[2017-07-16 10:53] LABS: PROTHROMBIN TIME - PATIENT 10.4 SEC (9.8-11.6)
[2017-07-16] MEDS ORDERED: MORPHINE SULFATE 2 MG/ML INJ IV PUSH ONE (11:00)
[2017-07-16 11:02] LABS: BICARBONATE 27.6 MEQ/L (21.0-32.0); CALCIUM 8.5 MG/DL (8.5-10.1); CREATININE 1.09 MG/DL (0.50-1.00)
[2017-07-16] MEDS ORDERED: ALBU6.7H INH (11:11)
[2017-07-16] MEDS ORDERED: KLOR10TA PO (11:11)
[2017-07-16] MEDS ORDERED: ALLE60TA PO (11:11)
[2017-07-16] MEDS ORDERED: LACTCAP8 PO (11:11)
[2017-07-16] MEDS ORDERED: LEVO.1 PO (11:11)
[2017-07-16] MEDS ORDERED: ALBU0.63 NEB (11:11)
--- NOTE | 2017-07-16 11:29 | RADRPT ---
EXAM DATE/TIME: 07/16/2017 11:20 [facility] COMPARISON: CHEST SINGLE AP, May 30, 2017, 20:50. INDICATIONS : Evaluate lung status. Fracture right hip. MEDICAL HISTORY : Chronic obstructive pulmonary disease. Hypertension. SURGICAL HISTORY : None. ENCOUNTER: Subsequent ACUITY: 1 day PAIN SCORE: 0/10 LOCATION: Bilateral chest FINDINGS: Cardiomegaly mild interstitial edema. There is no pneumothorax. There is no evidence of dilation. CONCLUSION: Cardiomegaly with possible mild failure Fausto Duval MD FACR on July 16, 2017 at 11:28 Board Certified Radiologist. This report was verified electronically.
[2017-07-16] MEDS ORDERED: POTASSIUM CHLORIDE 20 MEQ CONTROLLED RELEASE TAB PO ONE (11:45)
--- NOTE | 2017-07-16 12:10 | HHI.HP ---
[facility] Service Family Medicine Primary Care Physician Marycarmen Crenshaw MD Admission Diagnosis right hip fracture Diagnoses: Chief Complaint: fall International Travel<30 Days: No Contact w/Intl Traveler<30days: No History of Present Illness 86-year-old female with history of hypertension, COPD, hypothyroidism presents after a fall. Patient states she slipped and fell this morning around 8 :30 AM at [employer] in the bathroom. She said that he'll honor slough slid out and then she fell over. Denies hitting her head. Was on a tile floor in the restroom. She stated she landed on her right hip. Denies any loss of consciousness. Was transferred here by paramedics. Denies any other fractures, besides couple rib fractures in the past. She states she is having a lot of pain in her right groin. Denies any pain anywhere else. Did hit her right arm, with a superficial wound, but x-ray was negative. She states she fell couple months ago in the kitchen by herself, unsure of the cause. Otherwise, she stated her last fall was in 2011. And since then, she has had right foot drop. She does breast self in her house. Does not use assistive device at home. Neighbor occasionally will bring her food. Drives herself and fully independent. (Edmund Deluna MD) Review of Systems Constitutional: DENIES: Fever, Chills, Dizziness Eyes: DENIES: Blurred vision Ears, nose, mouth, throat: DENIES: Hearing loss, Throat pain Respiratory: DENIES: Cough, Shortness of breath Cardiovascular: DENIES: Chest pain, Palpitations, Syncope, Lower Extremity Edema Gastrointestinal: DENIES: Black stools, Bloody stools, Constipation, Diarrhea, Nausea, Vomiting Genitourinary: DENIES: Urinary frequency, Dysuria Musculoskeletal: COMPLAINS OF: Muscle aches, Stiffness, Joint Swelling, DENIES : Back pain, Neck pain Integumentary: DENIES: Abnormal pigmentation, Rash Neurologic: DENIES: Headache, Paresthesias, Seizures Psychiatric: DENIES: Anxiety, Confusion (Edmund Deluna MD) Past Family Social History Past Medical History HTN COPD/Asthma Scoliosis Hypothyroid s/p thyroidectomy, thyroid tumor Past Surgical History Thyroidectomy-04/2016 Tonsillectomy Reported Medications Reported Meds & Active Scripts Active Calcium 500 +D (Calcium Carbonate-Cholecalciferol) 500-400 Mg-Unit Tab 1 Tab PO BID Reported Synthroid (Levothyroxine Sodium) 100 Mcg Tab 100 Mcg PO DAILY Probiotic (Lactobacillus Acidophilus) 10 Billion Cell Cap 1 Cap PO DAILY Proventil Hfa 6.7 GM Inh (Albuterol Sulfate) 90 Mcg/Act Aer 2 Puff INH Q4-6H PRN Albuterol Neb (Albuterol Sulfate) 0.63 Mg/3 Ml Neb 0.63 Mg NEB TID NEB PRN Cecile Allergy (Fexofenadine HCl) 60 Mg Tab 60 Mg PO BID Klor-Con 10 (Potassium Chloride) 10 Meq Tab 10 Meq PO DAILY Magnesium Oxide 400 Mg Tab 400 Mg PO DAILY Synthroid (Levothyroxine Sodium) 100 Mcg Tab 100 Mcg PO DAILY Calcitriol 0.25 Mcg Cap 0.25 Mcg PO BID NEB Losartan-Hydrochlorothiazide 50-12.5 Mg Tab 1 Tab PO DAILY Furosemide 20 Mg Tab 20 Mg PO DAILY Omeprazole 20 Mg Tab 20 Mg PO DAILY Advair Diskus Inh (Fluticasone-Salmeterol Inh) 100-50 Mcg/Blist Aer 1 Puff INH BID Rinse mouth after use. (Edmund Deluna MD) Allergies: Coded Allergies: penicillin G (Verified Allergy, Intermediate, Rash, 07/16/17) sulfite (Verified Allergy, Intermediate, Rash, 07/16/17) Active Ordered Medications Active Medications Morphine Sulfate (Morphine Inj) 4 mg ONCE ONCE IV PUSH Last administered on 07/16at 11:00; Admin Dose 4 MG; Start 07/16/17 at 11:00; Stop 07/16/17 at 11:01; Status DC Potassium Chloride (KCl) 40 meq ONCE ONCE PO; Start 07/16/17 at 11:45; Stop 07/16 at 11:46; Status DC Tetanus/ Diphtheria Toxoids (Tetanus/ Diphtheria Tox Adult) 0.5 ml ONCE ONCE IM Last administered on 07/16/17at 10:59; Admin Dose 0.5 ML; Start 07/16/17 at 10:15; Stop 07/16/17 at 10:16; Status DC Family History Father-unknown Mother-heart disease Sister-larynx cancer No biological children Social History Lives by self Worked at [employer]-f[employer]-zaid exposure Alcohol-denies Other drugs-denies Dr. 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 Lying in bed. SKIN: No rashes, ecchymoses or lesions. Cool and dry. HEAD: Atraumatic. Normocephalic. No temporal or scalp tenderness. EYES: Pupils equal round and reactive. Extraocular motions intact. No scleral icterus. No injection or drainage. ENT: Throat without erythema, tonsillar hypertrophy or exudate. Uvula midline. Airway patent. NECK: Trachea midline. No JVD or lymphadenopathy. Supple, nontender. CARDIOVASCULAR: Regular rate and rhythm without murmurs, gallops, or rubs. RESPIRATORY: Clear to auscultation. Breath sounds equal bilaterally. No wheezes , rales, or rhonchi. GASTROINTESTINAL: Abdomen soft, non-tender, nondistended. No hepato-splenomegaly , or palpable masses. No guarding. MUSCULOSKELETAL: Right groin tender to palpation. Right leg shortened and mildly externally rotated. Pulses intact bilaterally. Sensation intact bilaterally. NEUROLOGICAL: Awake and alert. Motor and sensory grossly within normal limits. Normal speech. Laboratory Laboratory Tests Test 07/16/17 10:06 White Blood Count 13.2 Red Blood Count 3.95 Hemoglobin 11.9 Hematocrit 34.8 Mean Corpuscular Volume 88.1 Mean Corpuscular Hemoglobin 30.0 Mean Corpuscular Hemoglobin Concent 34.1 Red Cell Distribution Width 13.9 Platelet Count 344 Mean Platelet Volume 9.1 Neutrophils (%) (Auto) 75.4 Lymphocytes (%) (Auto) 13.4 Monocytes (%) (Auto) 9.0 Eosinophils (%) (Auto) 1.5 Basophils (%) (Auto) 0.7 Neutrophils # (Auto) 10.0 Lymphocytes # (Auto) 1.8 Monocytes # (Auto) 1.2 Eosinophils # (Auto) 0.2 Basophils # (Auto) 0.1 CBC Comment DIFF FINAL Differential Comment Prothrombin Time 10.4 Prothromb Time International Ratio 1.0 Activated Partial Thromboplast Time 25.0 Blood Urea Nitrogen 20 Creatinine 1.09 Random Glucose 106 Calcium Level 8.5 Sodium Level 137 Potassium Level 3.1 Chloride Level 102 Carbon Dioxide Level 27.6 Anion Gap 7 Estimat Glomerular Filtration Rate 47 (Edmund Deluna MD) Result Diagram: 07/16/17 1006 07/16/17 1006 Imaging Last Impressions Radius/Ulna X-Ray 07/16/17 0000 Signed Impressions: Service Date/Time: Sunday, July 16, 2017 10:24 - CONCLUSION: Negative for fracture or dislocation. Follow up in 7-10 days is suggested if symptoms persist. Fausto Duval MD FACR Hip and Pelvis X-Ray 07/16/17 0000 Signed Impressions: Service Date/Time: Sunday, July 16, 2017 10:32 - CONCLUSION: Intertrochanteric fracture right hip Fausto Duval MD FACR Chest X-Ray 07/16/17 0000 Signed Impressions: Service Date/Time: Sunday, July 16, 2017 11:20 - CONCLUSION: Cardiomegaly with possible mild failure Fausto Duval MD FACR (Edmund Deluna MD) Caprini VTE Risk Assessment Caprini VTE Risk Assessment: Mod/High Risk (score >= 2) VTE Pharm Contraindication: surgery in AM Caprini Risk Assessment Model Point Value = 1 Point Value = 2 Point Value = 3 Point Value = 5 Age 41-60 Minor surgery BMI > 25 kg/m2 Swollen legs Varicose veins or History of unexplained or recurrent spontaneous Oral contraceptives or hormone replacement Sepsis (< 1 month) Serious lung disease, including pneumonia (< 1 month) Abnormal pulmonary function Acute myocardial infarction Congestive heart failure (< 1 month) History of inflammatory bowel disease Medical patient at bed rest Age 61-74 Arthroscopic surgery Major open surgery (> 45 min) Laparoscopic surgery (> 45 min) Malignancy Confined to bed (> 72 hours) Immobilizing plaster cast Central venous access Age >= 75 History of VTE Family history of VTE Factor V Leiden Prothrombin [id number] Lupus anticoagulant Anticardiolipin antibodies Elevated serum homocysteine Heparin-induced thrombocytopenia Other congenital or acquired thrombophilia Stroke (< 1 month) Elective arthroplasty Hip, pelvis, or leg fracture Acute spinal cord injury (< 1 month) Prophylaxis Regimen Total Risk Factor Score Risk Level Prophylaxis Regimen 0-1 Low Early ambulation 2 Moderate Order ONE of the following: *Sequential Compression Device (SCD) *Heparin 5000 units SQ BID 3-4 Higher Order ONE of the following medications: *Heparin 5000 units SQ TID *Enoxaparin/Lovenox 40 mg SQ daily (WT < 150 kg, CrCl > 30 mL/min) *Enoxaparin/Lovenox 30 mg SQ daily (WT < 150 kg, CrCl > 10-29 mL/min) *Enoxaparin/Lovenox 30 mg SQ BID (WT < 150 kg, CrCl > 30 mL/min) AND/OR *Sequential Compression Device (SCD) 5 or more Highest Order ONE of the following medications: *Heparin 5000 units SQ TID (Preferred with Epidurals) *Enoxaparin/Lovenox 40 mg SQ daily (WT < 150 kg, CrCl > 30 mL/min) *Enoxaparin/Lovenox 30 mg SQ daily (WT < 150 kg, CrCl > 10-29 mL/min) *Enoxaparin/Lovenox 30 mg SQ BID (WT < 150 kg, CrCl > 30 mL/min) AND *Sequential Compression Device (SCD) (Edmund Deluna MD) Assessment and Plan Assessment and Plan 86-year-old female with history of hypertension, COPD, hypothyroidism presents today after fall, found to have a right hip fracture. 6 for consult and plan to do surgery tomorrow. Patient will be kept nothing by mouth and we' ll admit for management. Code Status Full Discussed Condition With Dr. Evans (Edmund Deluna MD) Attending Attestation I evaluated this patient both historically and physically with Drs. Deluna and [place]. She suffered a fall at [employer] this a.m. without loss of consciousness. Has had intermittent falls most recently at home. History of thyroid- and parathyroidectomy and takes supplements. History of hypertension and hypercalcemia. Takes meds for same. Lives alone, X 7 years, no kids, worked at [employer] for 40+ years. Two friends are with her. She opts for full code status. Will be placed at NPO after midnight and Dr. De La Cruz plans surgery tomorrow. Patient seen and examined. Case reviewed and discussed with the resident team. Agree with plan of care as discussed with me and documented in the resident note. (Shanna Evans MD) Problem List: (1) Intertrochanteric fracture of right hip ICD Codes: S72.141A - Displaced intertrochanteric fracture of right femur, initial encounter for closed fracture Status: Acute Plan: Patient status post fall this morning. Patient was significant right hip pain. Hips/pelvis x-ray: intertrochanteric fracture right hip. -Orthopedics consulted -Dr. De La Cruz to take to OR tomorrow -NPO after midnight -Pain control: [place], morphine for breakthrough -Zofran PRN nausea -PT/OT -Bed rest -Scheduled jose guadalupe-colace (2) HTN (hypertension) ICD Codes: I10 - Essential (primary) hypertension Plan: BP 155/70 on admission. -Continue home meds: Losartan-HCTZ, lasix (3) COPD (chronic obstructive pulmonary disease) ICD Codes: J44.9 - Chronic obstructive pulmonary disease, unspecified Plan: History of emphysema from secondhand smoke -Continue home advair -Duonebs PRN SOB (4) Hypothyroid ICD Codes: E03.9 - Hypothyroidism, unspecified Plan: Continue synthroid (5) Hypoparathyroidism ICD Codes: E20.9 - Hypoparathyroidism, unspecified Plan: Continue Calcium supplements (6) Hypokalemia ICD Codes: E87.6 - Hypokalemia Status: Acute Plan: K 3.1 on admission -Given 40meq in ED -Continue home supplement -Monitor, replace PRN (7) FEN Status: Acute Plan: Fluids: NS at 100mls/hr Electrolytes: monitor, replace PRN; see above Nutrition: regular diet, NPO after midnight DVT ppx: SCDs; holding chemoppx due to surgery tomorrow (Edmund Deluna MD) Physician Certification 2 Midnight Certification Type: Admission for Inpatient Services Order for Inpatient Services The services are ordered in accordance with Medicare regulations or non- Medicare payer requirements, as applicable. In the case of services not specified as inpatient-only, they are appropriately provided as inpatient services in accordance with the 2-midnight benchmark. Estimated LOS (days): 2 days is the estimated time the patient will need to remain in the hospital, assuming treatment plan goals are met and no additional complications. Post-Hospital Plan: Home (Edmund Deluna MD) Problem Qualifiers (1) Intertrochanteric fracture of right hip: Qualified Codes: S72.141A - Displaced intertrochanteric fracture of right femur , initial encounter for closed fracture (2) HTN (hypertension): Qualified Codes: I10 - Essential (primary) hypertension (3) COPD (chronic obstructive pulmonary disease): Qualified Codes: J43.9 - Emphysema, unspecified (4) Hypothyroid: Qualified Codes: E89.0 - Postprocedural hypothyroidism (5) Hypoparathyroidism: Qualified Codes: E20.8 - Other hypoparathyroidism Edmund Deluna MD Jul 16, 2017 12:10 Shanna Evans MD Jul 16, 2017 15:12
[2017-07-16] MEDS ORDERED: MORPHINE SULFATE 2 MG/ML INJ IV PUSH PRN (12:45)
[2017-07-16] MEDS ORDERED: ACETAMINOPHEN 325 MG TAB PO PRN (12:45)
[2017-07-16] MEDS ORDERED: BISACODYL 10 MG SUPP RECTAL PRN (12:45)
[2017-07-16] MEDS ORDERED: SODIUM CHLORIDE 0.9% FLUSH 10 ML FLUSH IV FLUSH PRN (12:45)
[2017-07-16] MEDS ORDERED: LACTULOSE SYRUP 20 GM/30 ML CUP PO PRN (12:45)
[2017-07-16] MEDS ORDERED: ONDANSETRON HCL 4 MG/2 ML VIAL IVP PRN (12:45)
[2017-07-16] MEDS ORDERED: MAGNESIUM HYDROXIDE SUSP 30 ML CUP PO PRN (12:45)
[2017-07-16] MEDS ORDERED: ACETAMINOPHEN/HYDROcodone 325 MG/7.5 MG TAB PO PRN (12:45)
[2017-07-16] MEDS ORDERED: SENNOSIDES 8.6 MG TAB PO PRN (12:45)
--- NOTE | 2017-07-16 13:17 | EKG ---
Date Performed: 07/16/2017 Time Performed: 11:02:47 PTAGE: 86 years EKG: Sinus rhythm WITH FIRST DEGREE AV BLOCK MINIMAL ST DEPRESSION ABNORMAL ECG PREVIOUS TRACING : 05/30/2017 20.30 DOCTOR: Eben Dejesus Interpretating Date/Time 07/16/2017 13:16:14
[2017-07-16] MEDS: SODIUM CHLOR 0.9% 1000 ML INJ 1,000 ML IV SCH ×2 (13:38→22:12)
[2017-07-16] MEDS: ACETAMINOPHEN/HYDROcodone 325 MG/5 MG TAB PO PRN ×2 (13:40→22:27)
[2017-07-16 13:45] VITALS: BP 121/58; PULSE 93; RESP 12; O2SAT 97
[2017-07-16] MEDS ORDERED: RESP: ALBUTEROL 2.5 MG/IPRATROPIUM 0.5 MG NEB (PRN) NEB (14:15)
[2017-07-16 15:00] VITALS: BP 125/56; PULSE 83; RESP 16; TEMP 97.8; O2SAT 99
[2017-07-16 20:53] VITALS: BP 120/52; PULSE 79; RESP 18; TEMP 97.1; O2SAT 93
[2017-07-16] MEDS: CALCITRIOL 0.25 MCG CAP PO SCH (22:10)
[2017-07-16] MEDS: BUDESONIDE-FORMOTEROL 80/4.5 MCG INHALER INH SCH (22:10)
[2017-07-16] MEDS: CALCIUM/VITAMIN D 250 MG/125 U TAB PO SCH (22:11)
[2017-07-16] MEDS: DOCUSATE SODIUM 50 MG/SENNA 8.6 MG TAB PO SCH (22:11)
[2017-07-16] MEDS: SODIUM CHLORIDE 0.9% FLUSH 10 ML FLUSH IV FLUSH SCH (22:12)
[2017-07-16] MEDS ORDERED: LACTATED RINGER'S 1000 ML IV PRN (23:30)
[2017-07-16] MEDS ORDERED: SODIUM CHLORID 0.9% 500 ML IV PRN (23:30)
[2017-07-16] MEDS ORDERED: CHLORHEXIDINE GLUCONATE 2 % 1 PACK (2 CLOTHS) TOPICAL PRN (23:30)
[2017-07-16] MEDS ORDERED: POVIDONE IODINE 5% (ANTISEPSIS KIT) 4 APPLICATIONS EACH NARE PRN (23:30)
[2017-07-17] VITALS (7 sets, daily range): BP systolic 121–146; BP diastolic 55–66; PULSE 71–82; RESP 17–18; TEMP 97.5–99; O2SAT 95–97
[2017-07-17] MEDS: ACETAMINOPHEN/HYDROcodone 325 MG/5 MG TAB PO PRN ×4 (03:33→22:56)
[2017-07-17] MEDS: LEVOTHYROXINE SODIUM 100 MCG TAB PO SCH (05:09)
[2017-07-17 07:12] LABS: AUTOMATED NEUTROPHIL # 9.3 TH/MM3 (1.8-7.7); BASOPHIL # 0.1 TH/MM3 (0-0.2); BASOPHIL % 0.5 % (0.0-2.0); EOSINOPHIL # 0.1 TH/MM3 (0-0.4); EOSINOPHIL % 0.8 % (0.0-4.0); HEMATOCRIT 24.8 % (35.0-46.0); HEMOGLOBIN 8.7 GM/DL (11.6-15.3); LYMPH % 11.5 % (9.0-44.0); LYMPHOCYTE # 1.4 TH/MM3 (1.0-4.8); MEAN CELL VOLUME 86.7 FL (80.0-100.0); MEAN CORPUSCULAR HEMOGLOBIN 30.4 PG (27.0-34.0); MEAN CORPUSCULAR HGB CONC 35.1 % (32.0-36.0); MONO % 10.5 % (0.0-8.0); MONOCYTE # 1.3 TH/MM3 (0-0.9); NEUT % 76.7 % (16.0-70.0); PLATELET COUNT 227 TH/MM3 (150-450); RED BLOOD COUNT 2.86 MIL/MM3 (4.00-5.30); RED CELL DISTRIBUTION WIDTH 13.8 % (11.6-17.2); WHITE BLOOD COUNT 12.1 TH/MM3 (4.0-11.0)
[2017-07-17 07:57] LABS: ALBUMIN 2.8 GM/DL (3.4-5.0); AST (GOT) 14 U/L (15-37); BICARBONATE 26.5 MEQ/L (21.0-32.0); BLOOD UREA NITROGEN 19 MG/DL (7-18); CALCIUM 7.7 MG/DL (8.5-10.1); CHLORIDE 105 MEQ/L (98-107); CREATININE 0.89 MG/DL (0.50-1.00); GLOMERULAR FILTRATION RATE 60 ML/MIN (>89); GLUCOSE,RANDOM 105 MG/DL (74-106); SODIUM (NA) 140 MEQ/L (136-145)
[2017-07-17 08:00] LABS: ALKALINE PHOSPHATASE 41 U/L (45-117); ALT (GPT) 17 U/L (10-53); TOTAL BILIRUBIN ADULT 0.6 MG/DL (0.2-1.0); TOTAL PROTEIN 6.2 GM/DL (6.4-8.2)
[2017-07-17] MEDS: CALCITRIOL 0.25 MCG CAP PO SCH ×2 (08:00→22:48)
[2017-07-17] MEDS: SODIUM CHLOR 0.9% 1000 ML INJ 1,000 ML IV SCH ×2 (08:41→18:41)
[2017-07-17] MEDS: LACTOBACILLUS ACIDOPHILUS TAB PO SCH (09:00)
[2017-07-17] MEDS: SODIUM CHLORIDE 0.9% FLUSH 10 ML FLUSH IV FLUSH SCH ×2 (09:00→21:00)
[2017-07-17] MEDS: HYDROCHLOROTHIAZIDE 12.5 MG CAP PO SCH (09:00)
[2017-07-17] MEDS: CALCIUM/VITAMIN D 250 MG/125 U TAB PO SCH ×2 (09:00→22:51)
[2017-07-17] MEDS: BUDESONIDE-FORMOTEROL 80/4.5 MCG INHALER INH SCH ×2 (09:00→22:51)
[2017-07-17] MEDS: LOSARTAN 50 MG TAB PO SCH (09:00)
[2017-07-17] MEDS: POTASSIUM CHLORIDE 10 MEQ CONTROLLED RELEASE TAB PO SCH (09:00)
[2017-07-17] MEDS: DOCUSATE SODIUM 50 MG/SENNA 8.6 MG TAB PO SCH ×2 (09:00→22:51)
[2017-07-17] MEDS: FUROSEMIDE 20 MG TAB PO SCH (09:00)
[2017-07-17] MEDS: PANTOPRAZOLE SOD 20 MG DELAYED RELEASE TAB PO SCH (09:00)
[2017-07-17] MEDS: MAGNESIUM OXIDE 400 MG TAB PO SCH (11:00)
--- NOTE | 2017-07-17 11:56 | HHI.FPPN ---
Subjective Remarks Patient seen and examined this morning. Temperature 97.6, pulse 80, respiratory rate 18, blood pressure 138/55, pulse ox 95 on room air. She is lying in bed waiting for surgery which is planned for later this afternoon. Reports having some mild pain that is controlled with her pain meds. She is looking forward to her surgery and hoping to get out of the hospital as soon as possible. Denies any nausea or vomiting. Denies any abdominal pain, chest pain or shortness of breath. (Umberto Silva MD, R3) Objective Vitals Vital Signs Date Time Temp Pulse Resp B/P (MAP) Pulse Ox O2 Delivery O2 Flow Rate FiO2 07/17/17 08:00 97.6 80 18 138/55 (82) 95 07/17/17 05:12 98.0 80 18 121/61 (81) 95 07/17/17 01:00 97.5 80 17 122/57 (78) 95 07/17/17 00:15 97 07/16/17 20:53 97.1 79 18 120/52 (74) 93 07/16/17 15:19 16 07/16/17 15:00 97.8 83 16 125/56 (79) 99 07/16/17 14:22 07/16/17 13:45 93 12 121/58 (79) 97 Room Air I/O 07/16/17 07/16/17 07/16/17 07/17/17 07/17/17 07/17/17 07:00 15:00 23:00 07:00 15:00 23:00 Intake Total 240 ml 0 ml Output Total 1200 ml Balance 240 ml -1200 ml Intake Oral 240 ml 0 ml Output Urine Total 1200 ml # Voids 0 # Bowel Movements 0 0 (Umberto Silva MD, R3) Result Diagram: 07/17/17 0622 07/17/17 0622 Imaging Last Impressions Radius/Ulna X-Ray 07/16/17 0000 Signed Impressions: Service Date/Time: Sunday, July 16, 2017 10:24 - CONCLUSION: Negative for fracture or dislocation. Follow up in 7-10 days is suggested if symptoms persist. Fausto Duval MD FACR Hip and Pelvis X-Ray 07/16/17 0000 Signed Impressions: Service Date/Time: Sunday, July 16, 2017 10:32 - CONCLUSION: Intertrochanteric fracture right hip Fausto Duval MD FACR Chest X-Ray 07/16/17 0000 Signed Impressions: Service Date/Time: Sunday, July 16, 2017 11:20 - CONCLUSION: Cardiomegaly with possible mild failure Fausto Duval MD FACR Objective Remarks GEN: Well-developed, well-nourished patient. No acute distress. Lying in bed appears comfortable CV: Regular rate and rhythm without obvious murmurs LUNGS: Clear to auscultation bilaterally. Normal respiratory effort. No wheezes , rales, rhonchi. GI: Soft, nontender, nondistended. No palpable masses. Bowel sounds WNL. EXT: No edema. Right leg is shortened and externally rotated. Peripheral pulses intact bilaterally. Incision intact bilaterally. Able to wiggle her toes. NEURO/PSYCH: Afocal. Awake, alert, and oriented x3. Appropriate insight and judgment. Medications and IVs Current Medications Medications (Trade) Dose Ordered Sig/Marsha Route Start Time Stop Time Status Last Admin Sodium Chloride 1,000 ml @ 100 mls/hr Q10H IV 07/16/17 12:41 07/16/17 22:12 (NS Flush) 2 ml UNSCH PRN IV FLUSH 07/16/17 12:45 (NS Flush) 2 ml BID IV FLUSH 07/16/17 21:00 (Zofran Inj) 4 mg Q6H PRN IVP 07/16/17 12:45 (Tylenol) 650 mg Q6H PRN PO 07/16/17 12:45 (Louisa 5-325 Mg) 1 tab Q4H PRN PO 07/16/17 12:45 07/17/17 07:53 (Louisa 7.5-325 Mg) 1 tab Q4H PRN PO 07/16/17 12:45 (Morphine Inj) 2 mg Q3H PRN IV PUSH 07/16/17 12:45 (Vidhya-Colace) 1 tab BID PO 07/16/17 21:00 07/16/17 22:11 (Milk Of Magnesia Liq) 30 ml Q12H PRN PO 07/16/17 12:45 (Senokot) 17.2 mg Q12H PRN PO 07/16/17 12:45 (Dulcolax Supp) 10 mg DAILY PRN RECTAL 07/16/17 12:45 (Lactulose Liq) 30 ml DAILY PRN PO 07/16/17 12:45 (Rocaltrol) 0.25 mcg BID@0800,2000 PO 07/16/17 20:00 07/16/17 22:10 (Lasix) 20 mg DAILY PO 07/17/17 09:00 (Lactinex) 1 tab DAILY PO 07/17/17 09:00 (Synthroid) 100 mcg DAILY@0600 PO 07/17/17 06:00 07/17/17 05:09 (Mag-Ox) 400 mg DAILY@1100 PO 07/17/17 11:00 (KCl) 10 meq DAILY PO 07/17/17 09:00 (Oscal-D 250-125) 500 mg BID PO 07/16/17 21:00 07/16/17 22:11 (Symbicort 80-4.5 Mcg Inh) 2 puff BID INH 07/16/17 21:00 07/16/17 22:10 (Cozaar) 50 mg DAILY PO 07/17/17 09:00 (Protonix) 20 mg DAILY PO 07/17/17 09:00 (Microzide) 12.5 mg DAILY PO 07/17/17 09:00 (Duoneb Neb) 1 ampule Q4HR NEB PRN NEB 07/16/17 14:15 Lactated Ringer's 1,000 ml @ 30 mls/hr Q24H PRN IV 07/16/17 23:30 07/19/17 23:29 07/17/17 06:54 Sodium Chloride 500 ml @ 30 mls/hr [id number] PRN IV 07/16/17 23:30 07/19/17 23:29 (Betadine 5% Antisepsis Kit) 1 applic PIPING BLOCKER PRN EACH NARE 07/16/17 23:30 07/19/17 23:29 (Chlorhexidine 2% Cloth) 3 pack PIPING BLOCKER PRN TOPICAL 07/16/17 23:30 07/19/17 23:29 (Umberto Silva MD, R3) A/P Assessment and Plan 86-year-old female with history of hypertension, COPD, hypothyroidism presents today after fall, found to have a right hip fracture. 6 for consult and plan to do surgery today. Patient will be kept nothing by mouth and we'll admit for management. Discharge Planning Discharge pending results of surgery and requirements for further physical therapy. (Umberto Silva MD, R3) Attending Attestation I saw the patient this morning with the entire medicine team. Her surgery apparently is not scheduled until later in the day. She still complaining of dry mouth. She left her glasses at home. She did have a visitor and I apprised that individual to contact the friend that has her glasses to bring them in. She did request a Morgan because getting on the fracture bedpan was too painful. She is concerned about her bowels. Instructed her how to use her incentive spirometer and we will make certain she has a good bowel regimen. Patient seen and examined. Case reviewed and discussed with the resident team. Agree with plan of care as discussed with me and documented in the resident note. (Shanna Evans MD) Problem List: (1) Intertrochanteric fracture of right hip ICD Codes: S72.141A - Displaced intertrochanteric fracture of right femur, initial encounter for closed fracture Status: Acute Plan: Currently comfortable with on pain medications Hips/pelvis x-ray: intertrochanteric fracture right hip. -Orthopedics consulted -Dr. De La Cruz to take to OR today -NPO until following procedure -Pain control: [place], morphine for breakthrough -Zofran PRN nausea -PT/OT -Bed rest -Scheduled vidhya-colace (2) HTN (hypertension) ICD Codes: I10 - Essential (primary) hypertension Plan: BP 155/70 on admission. -Continue home meds: Losartan-HCTZ, lasix (3) COPD (chronic obstructive pulmonary disease) ICD Codes: J44.9 - Chronic obstructive pulmonary disease, unspecified Plan: History of emphysema from secondhand smoke -Continue home advair -Duonebs PRN SOB (4) Hypothyroid ICD Codes: E03.9 - Hypothyroidism, unspecified Plan: Continue synthroid (5) Hypoparathyroidism ICD Codes: E20.9 - Hypoparathyroidism, unspecified Plan: Continue Calcium supplements (6) Hypokalemia ICD Codes: E87.6 - Hypokalemia Status: Acute Plan: K 3.1 on admission -Given 40meq in ED -Continue home supplement -Monitor, replace PRN (7) FEN Status: Acute Plan: Fluids: NS at 100mls/hr Electrolytes: monitor, replace PRN; see above Nutrition: regular diet, NPO at this time for procedure DVT ppx: SCDs; holding chemoppx due to surgery tomorrow (Umberto Silva MD, R3) Problem Qualifiers (1) Intertrochanteric fracture of right hip: Qualified Codes: S72.141A - Displaced intertrochanteric fracture of right femur , initial encounter for closed fracture (2) HTN (hypertension): Qualified Codes: I10 - Essential (primary) hypertension (3) COPD (chronic obstructive pulmonary disease): Qualified Codes: J43.9 - Emphysema, unspecified (4) Hypothyroid: Qualified Codes: E89.0 - Postprocedural hypothyroidism (5) Hypoparathyroidism: Qualified Codes: E20.8 - Other hypoparathyroidism Umberto Silva MD, R3 Jul 17, 2017 11:56 Shanna Evans MD Jul 17, 2017 12:20
[2017-07-17] MEDS ORDERED: GLYCOPYRROLATE 1 MG/5 ML SYRINGE IV PUSH ONE (12:00)
[2017-07-17] MEDS ORDERED: ROCURONIUM INJ 50 MG/5 ML SYRINGE IV PUSH ONE (12:00)
[2017-07-17] MEDS ORDERED: LIDOCAINE HCL 1% PF 5 ML SYRINGE OTHER ONE (12:00)
[2017-07-17] MEDS ORDERED: DEXAMETHASONE SOD PHOS 4 MG/ML VIAL IV ONE (12:00)
[2017-07-17] MEDS ORDERED: NEOSTIGMINE 5 MG/5 ML SYRINGE IV PUSH ONE (12:00)
[2017-07-17] MEDS ORDERED: PHENYLEPH/NS 1000 MCG/10 ML SYR IV ONE (12:00)
[2017-07-17] MEDS ORDERED: ONDANSETRON HCL 4 MG/2 ML VIAL IV ONE (12:00)
[2017-07-17] MEDS ORDERED: PROPOFOL 200 MG/20 ML AMP IV ONE (12:00)
--- NOTE | 2017-07-17 14:16 | OTSOAPIP ---
RECEIVED OCCUPATIONAL THERAPY ORDERS FROM DR. MOORE. PATIENT IS AWAITING SURGICAL INTERVENTION OF RIGHT INTERTROCHANTERIC FRACTURE THIS DATE. WILL AWAIT POSTEROPERATIVE ORDERS TO COMPLETE EVALUATION. INTERDISCIPLINARY COMMUNICATION: REVIEWED ELECTRONIC MEDICAL RECORD, SPOKE WITH RN Therapist: Sandra Correa. OTR/L Signature on file
[2017-07-17] MEDS ORDERED: GENTAMICIN SULFATE 80 MG/2 ML VIAL ONE (15:04)
[2017-07-17] MEDS ORDERED: CLINDAMYCIN PHOS 600 MG/4 ML VIAL ONE (17:02)
[2017-07-17] MEDS ORDERED: VANCOMYCIN HCL 1000 MG VIAL ONE (17:02)
[2017-07-17] MEDS ORDERED: *ONDANSETRON 4 MG VIAL PERIprocedural Use ONLY ONE (18:51)
[2017-07-17] MEDS ORDERED: *morphine SULFATE 4 MG/ML PERIprocedure ONLY ONE (19:01)
--- NOTE | 2017-07-17 19:02 | PD.CONS ---
cc: Denys De La Cruz Jr., MD HPI Service Orthopedic Surgeons Consult Requested By Primary Care Physician Marycarmen Crenshaw MD Admission Diagnosis right hip fracture Diagnoses: History of Present Illness 86yo F with PMH of COPD, HTN, hyperparathyroidism here with c/o right hip pain after fall today. Pt said she tripped on her right heel this morning around 8: 30am and fell on her right hip and arm. Denies any head trauma, LOC, dizziness , chest pain, sob, n/v, abdominal pain, focal weakness or numbness. Pain is mainly in right hip and worst with movement. the pain is 7 out of 10, not associated with paresthesia and numbness to the RIGHT lower extremity, pain is nonradiating. History PFSH Past Medical History Asthma: Yes Heart Rhythm Problems: No Cancer: No Cardiovascular Problems: Yes High Cholesterol: Yes Chest Pain: No Congestive Heart Failure: No COPD: Yes Cerebrovascular Accident: No Diabetes: No Diminished Hearing: No Endocrine: No Gastrointestinal Disorders: No Genitourinary: No Headaches: No Hepatitis: No Hiatal Hernia: No Hypertension: Yes Implanted Vascular Access Dvce: No Medical other: No Musculoskeletal: No Neurologic: Yes Psychiatric: No Reproductive: No Respiratory: Yes (COPD) Migraines: No Seizures: No Sleep Apnea: No Thyroid Disease: Yes Tetanus Vaccination: Unknown Influenza Vaccination: Yes Menopausal: Yes : 0 Para: 0 Miscarriage: 0 : 0 Past Surgical History Abdominal Surgery: No Cardiac Surgery: No Ear Surgery: No Endocrine Surgery: No Eye Surgery: No Genitourinary Surgery: No Gynecologic Surgery: No Neurologic Surgery: No Oral Surgery: Yes (TONSILECTOMY) Thoracic Surgery: No Tonsillectomy: Yes Other Surgery: Yes (PARATHYROIDECTOMY) Social History Alcohol Use: No Tobacco Use: No Substance Use: No Allergies-Medications Allergies-Medications (Allergen,Severity, Reaction): Review of Systems Constitutional: DENIES: Diaphoretic episodes, Fatigue, Fever, Weight gain, Weight loss, Chills, Dizziness, Change in appetite, Night Sweats Endocrine: DENIES: Abnorml menstrual pattern, Heat/cold intolerance, Polydipsia , Polyuria, Polyphagia Eyes: DENIES: Blurred vision, Diplopia, Eye inflammation, Eye pain, Vision loss , Photosensitivity, Double Vision Ears, nose, mouth, throat: DENIES: Tinnitus, Hearing loss, Vertigo, Nasal discharge, Oral lesions, Throat pain, Hoarseness, Ear Pain, Running Nose, Epistaxis, Sinus Pain, Toothache, Odynophagia Respiratory: DENIES: Apneas, Cough, Snoring, Wheezing, Hemoptysis, Sputum production, Shortness of breath Cardiovascular: DENIES: Chest pain, Palpitations, Syncope, Dyspnea on Exertion , PND, Lower Extremity Edema, Orthopnea, Claudication Past Family Social History Allergies: Coded Allergies: penicillin G (Verified Allergy, Intermediate, Rash, 07/16/17) sulfite (Verified Allergy, Intermediate, Rash, 07/16/17) Active Ordered Medications Current Medications Medications (Trade) Dose Ordered Sig/Marsha Route Start Time Stop Time Status Last Admin Sodium Chloride 1,000 ml @ 100 mls/hr Q10H IV 07/16/17 12:41 07/16/17 22:12 (NS Flush) 2 ml UNSCH PRN IV FLUSH 07/16/17 12:45 (NS Flush) 2 ml BID IV FLUSH 07/16/17 21:00 (Zofran Inj) 4 mg Q6H PRN IVP 07/16/17 12:45 (Tylenol) 650 mg Q6H PRN PO 07/16/17 12:45 (Ruso 5-325 Mg) 1 tab Q4H PRN PO 07/16/17 12:45 07/17/17 12:45 (Ruso 7.5-325 Mg) 1 tab Q4H PRN PO 07/16/17 12:45 (Morphine Inj) 2 mg Q3H PRN IV PUSH 07/16/17 12:45 (Vidhya-Colace) 1 tab BID PO 07/16/17 21:00 07/16/17 22:11 (Milk Of Magnesia Liq) 30 ml Q12H PRN PO 07/16/17 12:45 (Senokot) 17.2 mg Q12H PRN PO 07/16/17 12:45 (Dulcolax Supp) 10 mg DAILY PRN RECTAL 07/16/17 12:45 (Lactulose Liq) 30 ml DAILY PRN PO 07/16/17 12:45 (Rocaltrol) 0.25 mcg BID@0800,2000 PO 07/16/17 20:00 07/16/17 22:10 (Lasix) 20 mg DAILY PO 07/17/17 09:00 (Lactinex) 1 tab DAILY PO 07/17/17 09:00 (Synthroid) 100 mcg DAILY@0600 PO 07/17/17 06:00 07/17/17 05:09 (Mag-Ox) 400 mg DAILY@1100 PO 07/17/17 11:00 (KCl) 10 meq DAILY PO 07/17/17 09:00 (Oscal-D 250-125) 500 mg BID PO 07/16/17 21:00 07/16/17 22:11 (Symbicort 80-4.5 Mcg Inh) 2 puff BID INH 07/16/17 21:00 07/16/17 22:10 (Cozaar) 50 mg DAILY PO 07/17/17 09:00 (Protonix) 20 mg DAILY PO 07/17/17 09:00 (Microzide) 12.5 mg DAILY PO 07/17/17 09:00 (Duoneb Neb) 1 ampule Q4HR NEB PRN NEB 07/16/17 14:15 Lactated Ringer's 1,000 ml @ 30 mls/hr Q24H PRN IV 07/16/17 23:30 07/19/17 23:29 07/17/17 06:54 Sodium Chloride 500 ml @ 30 mls/hr [id number] PRN IV 07/16/17 23:30 07/19/17 23:29 (Betadine 5% Antisepsis Kit) 1 applic [employer]K [employer] PRN EACH NARE 07/16/17 23:30 07/19/17 23:29 (Chlorhexidine 2% Cloth) 3 pack [employer] PRN TOPICAL 07/16/17 23:30 07/19/17 23:29 Reported Meds & Active Scripts Active Calcium 500 +D (Calcium Carbonate-Cholecalciferol) 500-400 Mg-Unit Tab 1 Tab PO BID Reported Synthroid (Levothyroxine Sodium) 100 Mcg Tab 100 Mcg PO DAILY Probiotic (Lactobacillus Acidophilus) 10 Billion Cell Cap 1 Cap PO DAILY Proventil Hfa 6.7 GM Inh (Albuterol Sulfate) 90 Mcg/Act Aer 2 Puff INH Q4-6H PRN Albuterol Neb (Albuterol Sulfate) 0.63 Mg/3 Ml Neb 0.63 Mg NEB TID NEB PRN Cecile Allergy (Fexofenadine HCl) 60 Mg Tab 60 Mg PO BID Klor-Con 10 (Potassium Chloride) 10 Meq Tab 10 Meq PO DAILY Magnesium Oxide 400 Mg Tab 400 Mg PO DAILY Synthroid (Levothyroxine Sodium) 100 Mcg Tab 100 Mcg PO DAILY Calcitriol 0.25 Mcg Cap 0.25 Mcg PO BID NEB Losartan-Hydrochlorothiazide 50-12.5 Mg Tab 1 Tab PO DAILY Furosemide 20 Mg Tab 20 Mg PO DAILY Omeprazole 20 Mg Tab 20 Mg PO DAILY Advair Diskus Inh (Fluticasone-Salmeterol Inh) 100-50 Mcg/Blist Aer 1 Puff INH BID Rinse mouth after use. Physical Exam Vital Signs Vital Signs Date Time Temp Pulse Resp B/P (MAP) Pulse Ox O2 Delivery O2 Flow Rate FiO2 07/17/17 18:44 98.8 93 17 131/59 (83) 99 Nasal Cannula 3 07/17/17 12:00 99.0 82 18 146/66 (92) 95 07/17/17 08:00 97.6 80 18 138/55 (82) 95 07/17/17 05:12 98.0 80 18 121/61 (81) 95 07/17/17 01:00 97.5 80 17 122/57 (78) 95 07/17/17 00:15 97 07/16/17 20:53 97.1 79 18 120/52 (74) 93 Physical Exam GENERAL: 86yo F in moderate distress. HEAD: Atraumatic. Normocephalic. ENT: No nasal bleeding or discharge. Mucous membranes pink and moist. RESPIRATORY: No accessory muscle use. Clear to auscultation. Breath sounds equal bilaterally. MUSCULOSKELETAL: Right hip: +TTP right proximal femur. short and externally rotated. Resting with the knee partially flexed for comfort. Grossly neurovascular intact. Positive logroll. SILT distally, neg homans. Distal pulses intact. Right upper extremity: grossly neurovascularly intact. No deformities. Laboratory Laboratory Tests Test 07/17/17 06:22 White Blood Count 12.1 Red Blood Count 2.86 Hemoglobin 8.7 Hematocrit 24.8 Mean Corpuscular Volume 86.7 Mean Corpuscular Hemoglobin 30.4 Mean Corpuscular Hemoglobin Concent 35.1 Red Cell Distribution Width 13.8 Platelet Count 227 Mean Platelet Volume 9.0 Neutrophils (%) (Auto) 76.7 Lymphocytes (%) (Auto) 11.5 Monocytes (%) (Auto) 10.5 Eosinophils (%) (Auto) 0.8 Basophils (%) (Auto) 0.5 Neutrophils # (Auto) 9.3 Lymphocytes # (Auto) 1.4 Monocytes # (Auto) 1.3 Eosinophils # (Auto) 0.1 Basophils # (Auto) 0.1 CBC Comment DIFF FINAL Differential Comment Blood Urea Nitrogen 19 Creatinine 0.89 Random Glucose 105 Total Protein 6.2 Albumin 2.8 Calcium Level 7.7 Alkaline Phosphatase 41 Aspartate Amino Transf (AST/SGOT) 14 Alanine Aminotransferase (ALT/SGPT) 17 Total Bilirubin 0.6 Sodium Level 140 Potassium Level 3.3 Chloride Level 105 Carbon Dioxide Level 26.5 Anion Gap 9 Estimat Glomerular Filtration Rate 60 Result Diagram: 07/17/17 0622 07/17/17 0622 Imaging Last 72 hours Impressions Hip X-Ray 07/17/17 0000 Signed Impressions: Service Date/Time: Monday, July 17, 2017 18:07 - CONCLUSION: Intraoperative images. Esvin Hansen MD Radius/Ulna X-Ray 07/16/17 0000 Signed Impressions: Service Date/Time: Sunday, July 16, 2017 10:24 - CONCLUSION: Negative for fracture or dislocation. Follow up in 7-10 days is suggested if symptoms persist. Fausto Duval MD FACR Hip and Pelvis X-Ray 07/16/17 0000 Signed Impressions: Service Date/Time: Sunday, July 16, 2017 10:32 - CONCLUSION: Intertrochanteric fracture right hip Fausto Duval MD FACR Chest X-Ray 07/16/17 0000 Signed Impressions: Service Date/Time: Sunday, July 16, 2017 11:20 - CONCLUSION: Cardiomegaly with possible mild failure Fausto Duval MD FACR Assessment & Plan Assessment and Plan 86yo F with PMH of COPD, HTN, hyperparathyroidism here with c/o right hip pain after fall today. Pt said she tripped on her right heel this morning around 8: 30am and fell on her right hip and arm. she has a RIGHT lower extremity of the short external rotated. X-ray examination revealed RIGHT comminuted unstable intertrochanteric femur fracture. i Recommend intramedullary saran fixation. Risks, benefits and alternatives discuss with the patient and her family at bedside. All questions answered. OR FOR RIGHT HIP Denys Mckeon Jr., MD Jul 17, 2017 19:02
--- NOTE | 2017-07-17 19:03 | PD.OP ---
cc: Denys De La Cruz Jr., MD Operative Report Date of Surgery: Jul 17, 2017 Preoperative Diagnosis: RIGHT hip intertrochanteric femur fracture Postoperative Diagnosis: Same Procedure: Right hip intramedullary saran fixation Anesthesia: Gen. Surgeon: Denys De La Cruz [employer] Planner(s): AMMY Bustos The surgical procedure was assisted by my Advanced Registered Nurse Practitioner. My AIRCRAFT MANAGER presence was necessary throughout this case for the manipulation and positioning of the surgical extremity. My AIRCRAFT MANAGER was assisting me throughout the duration of this procedure. The skill set of an Advance Registered Nurse Practitioner was medically necessary to complete this procedure. During the surgical case, the surgical rn was working at the back table and the Advance Registered Nurse Practitioner was directly assisting me. Resident Surgeon: None Operation and Findings: Estimated blood loss: 50 cc The patient received intravenous vancomycin. After the appropriate anesthesia was administered, and the patient was transferred to the fracture table. The fracture was anatomically reduced under fluoroscopic imaging. The hip was prepped and draped in usual sterile fashion. We made incision just proximal to the tip of the greater trochanter. We dissected down through the deep fascia. We used a threaded guidewire at the tip of the greater trochanter which was placed down to the metaphyseal region on both the AP and lateral views. We reamed proximally. Using fluoroscopic analysis we templated the appropriate size for the short nail. This nail was then placed into position under fluoroscopic guidance. We made incision laterally based on the position of the associated jig. We then placed a threaded guidewire into the center, center of the femoral head. The appropriate length for the screw was measured. We drilled laterally and then step reamed the femoral neck and femoral head region. The screw was placed into position. We then tightened the proximal set screw, which was followed by releasing one turn off of the screw to allow for compression. Traction was released from the leg and then manual compression was performed. The nail was secured distally with a single screw off of the jig using fluoroscopic guidance. We took final fluoroscopic imaging which revealed that the fracture was in very good position. The hardware was in good position as well. The wounds were thoroughly irrigated and then closed with a 0 Vicryl followed by 2-0 Vicryl and yamilet. The postoperative plan is to start 50% weightbearing. Additionally, we will initiate postoperative antibiotics for 24 hours along with DVT prophylaxis consisting of early mobilization, SCDs, compression stockings, and xarelto IMPLANTS USED Synthes short trochanteric nail, size: 11mm POSTP-OP PLAN OF ACTIVITY Antibiotics: vancomycin Antiocoagulation: (xeralto Dressing: none Dispo: Denys Cain Jr., MD Jul 17, 2017 19:03
[2017-07-17] MEDS ORDERED: DO NOT ADM ANY ANTICOAGULANT DRUGS PRN (20:15)
--- NOTE | 2017-07-17 22:30 | RADRPT ---
EXAM DATE/TIME: 07/17/2017 18:07 [facility] COMPARISON: No previous studies available for comparison. INDICATIONS : ORIF right hip. MEDICAL HISTORY : Chronic obstructive pulmonary disease. Hypertension. SURGICAL HISTORY : None. ENCOUNTER: Subsequent ACUITY: 2 days PAIN SCORE: Non-responsive. LOCATION: Right hip. FINDINGS: 5 images are recorded digitally in the operating room using C-arm during placement of an intramedulla ry saran and intertrochanteric nail. There is a distal intercalated screw. CONCLUSION: Intraoperative images. Esvin Hansen MD on July 17, 2017 at 22:29 Board Certified Radiologist. This report was verified electronically.
[2017-07-18] VITALS (8 sets, daily range): BP systolic 100–122; BP diastolic 47–59; PULSE 80–95; RESP 17–19; TEMP 96.4–98.8; O2SAT 91–97
[2017-07-18] MEDS: SODIUM CHLOR 0.9% 1000 ML INJ 1,000 ML IV SCH ×3 (06:39→23:09)
[2017-07-18] MEDS: ACETAMINOPHEN/HYDROcodone 325 MG/5 MG TAB PO PRN (06:39)
[2017-07-18] MEDS: LEVOTHYROXINE SODIUM 100 MCG TAB PO SCH (06:39)
[2017-07-18] MEDS ORDERED: SODIUM CHLORIDE 0.9% FLUSH 10 ML FLUSH IV FLUSH PRN (08:00)
[2017-07-18] MEDS ORDERED: PROMETHAZINE HCL 25 MG TAB PO PRN (08:00)
[2017-07-18] MEDS ORDERED: oxyCODONE/ACETAMINOPHEN 5 MG/325 MG TAB PO PRN (08:00)
[2017-07-18] MEDS ORDERED: MORPHINE SULFATE 8 MG/ML INJ IV PUSH PRN (08:00)
[2017-07-18] MEDS ORDERED: LACTULOSE SYRUP 20 GM/30 ML CUP PO PRN (08:00)
[2017-07-18] MEDS ORDERED: BISACODYL 10 MG SUPP RECTAL PRN (08:00)
[2017-07-18] MEDS ORDERED: SENNOSIDES 8.6 MG TAB PO PRN (08:00)
[2017-07-18] MEDS ORDERED: Post-op Orders (for Pharmacy) XX ONE (08:00)
[2017-07-18] MEDS ORDERED: MAGNESIUM HYDROXIDE SUSP 30 ML CUP PO PRN (08:00)
[2017-07-18 08:36] LABS: HEMATOCRIT 22.9 % (35.0-46.0); HEMOGLOBIN 7.9 GM/DL (11.6-15.3); MEAN CELL VOLUME 88.4 FL (80.0-100.0); MEAN CORPUSCULAR HEMOGLOBIN 30.7 PG (27.0-34.0); MEAN CORPUSCULAR HGB CONC 34.7 % (32.0-36.0); PLATELET COUNT 204 TH/MM3 (150-450); RED BLOOD COUNT 2.59 MIL/MM3 (4.00-5.30); RED CELL DISTRIBUTION WIDTH 13.7 % (11.6-17.2); WHITE BLOOD COUNT 16.3 TH/MM3 (4.0-11.0)
[2017-07-18] MEDS: SODIUM CHLORIDE 0.9% FLUSH 10 ML FLUSH IV FLUSH SCH ×3 (09:00→21:20)
[2017-07-18] MEDS: DOCUSATE SODIUM 50 MG/SENNA 8.6 MG TAB PO SCH ×2 (09:04→21:20)
[2017-07-18] MEDS: LACTOBACILLUS ACIDOPHILUS TAB PO SCH (09:05)
[2017-07-18] MEDS: HYDROCHLOROTHIAZIDE 12.5 MG CAP PO SCH (09:05)
[2017-07-18] MEDS: CALCIUM/VITAMIN D 250 MG/125 U TAB PO SCH ×2 (09:05→21:20)
[2017-07-18] MEDS: PANTOPRAZOLE SOD 20 MG DELAYED RELEASE TAB PO SCH (09:05)
[2017-07-18] MEDS: LOSARTAN 50 MG TAB PO SCH (09:06)
[2017-07-18] MEDS: FUROSEMIDE 20 MG TAB PO SCH (09:06)
[2017-07-18] MEDS: RIVAROXABAN 10 MG TAB PO SCH (09:06)
[2017-07-18] MEDS: VANCOMYCIN INJ 1,000 MG in SODIUM CHLOR 0.9% 250 ML INJ 250 ML IV SCH ×2 (09:12→21:18)
[2017-07-18 09:14] LABS: ALBUMIN 2.6 GM/DL (3.4-5.0); BICARBONATE 25.6 MEQ/L (21.0-32.0); CALCIUM 6.9 MG/DL (8.5-10.1); CREATININE 0.84 MG/DL (0.50-1.00)
[2017-07-18 09:27] LABS: CALCIUM-PROTEIN CORRECTED 7.5 MG/DL (8.5-10.1); TOTAL BILIRUBIN ADULT 0.4 MG/DL (0.2-1.0)
--- NOTE | 2017-07-18 09:38 | HHI.FPPN ---
Subjective Remarks Patient seen and examined this morning. POD#1 from surgery yesterday. Doing well. Pain well controlled. No complaints. Denies any chest pain, SOB, abdominal pain. (Edmund Deluna MD) Objective Vitals Vital Signs Date Time Temp Pulse Resp B/P (MAP) Pulse Ox O2 Delivery O2 Flow Rate FiO2 07/18/17 07:43 Room Air 07/18/17 07:33 98.6 80 19 105/49 (67) 91 07/18/17 04:30 98.2 82 18 120/58 (78) 92 07/18/17 00:00 98.8 95 17 122/59 (80) 93 07/17/17 19:59 95 Nasal Cannula 2.00 07/17/17 19:50 98.3 71 18 138/63 (88) 95 07/17/17 19:30 98.8 78 16 145/60 (88) 100 Nasal Cannula 2 07/17/17 19:15 80 14 155/69 (97) 100 Nasal Cannula 2 07/17/17 19:00 90 15 162/69 (100) 98 Nasal Cannula 3 07/17/17 18:44 98.8 93 17 131/59 (83) 99 Nasal Cannula 3 07/17/17 12:00 99.0 82 18 146/66 (92) 95 I/O 07/17/17 07/17/17 07/17/17 07/18/17 07/18/17 07/18/17 07:00 15:00 23:00 07:00 15:00 23:00 Intake Total 0 ml 0 ml 915 ml 0 ml Output Total 1200 ml 750 ml 250 ml Balance -1200 ml 0 ml 165 ml -250 ml Intake Oral 0 ml 0 ml 15 ml 0 ml IV Total 900 ml Output Urine Total 1200 ml 700 ml 250 ml Estimated Blood Loss 50 ml # Bowel Movements 0 0 (Edmund Deluna MD) Result Diagram: 07/18/17 0638 07/18/17 0638 Imaging Last Impressions Hip X-Ray 07/17/17 0000 Signed Impressions: Service Date/Time: Monday, July 17, 2017 18:07 - CONCLUSION: Intraoperative images. Esvin Hansen MD Radius/Ulna X-Ray 07/16/17 0000 Signed Impressions: Service Date/Time: Sunday, July 16, 2017 10:24 - CONCLUSION: Negative for fracture or dislocation. Follow up in 7-10 days is suggested if symptoms persist. Fausto Duval MD FACR Hip and Pelvis X-Ray 07/16/17 0000 Signed Impressions: Service Date/Time: Sunday, July 16, 2017 10:32 - CONCLUSION: Intertrochanteric fracture right hip Fausto Duval MD FACR Chest X-Ray 07/16/17 0000 Signed Impressions: Service Date/Time: Sunday, July 16, 2017 11:20 - CONCLUSION: Cardiomegaly with possible mild failure Fausto Duval MD FACR Objective Remarks GEN: Well-developed, well-nourished patient. No acute distress. Lying in bed appears comfortable CV: Regular rate and rhythm without obvious murmurs LUNGS: Clear to auscultation bilaterally. Normal respiratory effort. No wheezes , rales, rhonchi. GI: Soft, nontender, nondistended. No palpable masses. Bowel sounds WNL. EXT: No edema. Right leg is shortened and externally rotated. Peripheral pulses intact bilaterally. Able to wiggle her toes. Sensation intact NEURO/PSYCH: Afocal. Awake, alert, and oriented x3. Appropriate insight and judgment. (Edmund Deluna MD) A/P Assessment and Plan 86-year-old female with history of hypertension, COPD, hypothyroidism presents today after fall, found to have a right hip fracture. 6 for consult and plan to do surgery today. Patient will be kept nothing by mouth and we'll admit for management. Discharge Planning Discharge pending results of surgery and requirements for further physical therapy. (Edmund Deluna MD) Attending Attestation Patient seen and examined at approximately 2:25 PM. She is sitting up on the commode. Leans to the left. Still complains of dry mouth and little bit of soreness of her lips. Passing a lot of gas, thirsty for some [place]. She has voided a small amount. I agree with the exam as documented above. Patient anticipates discharge to rehabilitation soon. Patient seen and examined. Case reviewed and discussed with the resident team. Agree with plan of care as discussed with me and documented in the resident note. (Shanna Evans MD) Problem List: (1) Intertrochanteric fracture of right hip ICD Codes: S72.141A - Displaced intertrochanteric fracture of right femur, initial encounter for closed fracture Status: Acute Plan: Currently comfortable with on pain medications Hips/pelvis x-ray: intertrochanteric fracture right hip. -Orthopedics consulted -POD#1 from right intramedullary saran fixation -Await recs for PT/discharge planning -Pain control: Toradol scheduled, Percocet PRN, morphine breakthrough -Zofran PRN nausea -PT/OT -Bed rest -Scheduled jose guadalupe-colace (2) HTN (hypertension) ICD Codes: I10 - Essential (primary) hypertension Status: Chronic Plan: Stable. -Continue home meds: Losartan-HCTZ, lasix (3) COPD (chronic obstructive pulmonary disease) ICD Codes: J44.9 - Chronic obstructive pulmonary disease, unspecified Status: Chronic Plan: History of emphysema from secondhand smoke -Continue home advair -Duonebs PRN SOB (4) Hypothyroid ICD Codes: E03.9 - Hypothyroidism, unspecified Status: Chronic Plan: Continue synthroid (5) Hypoparathyroidism ICD Codes: E20.9 - Hypoparathyroidism, unspecified Status: Chronic Plan: Continue Calcium supplements (6) Hypokalemia ICD Codes: E87.6 - Hypokalemia Status: Resolved Plan: K 3.1 on admission. 3.6 today -Continue home supplement -Monitor, replace PRN (7) FEN Status: Acute Plan: Fluids: NS at 100mls/hr Electrolytes: monitor, replace PRN; see above Nutrition: regular diet DVT ppx: Xarelto (Edmund Deluna MD) Problem Qualifiers (1) Intertrochanteric fracture of right hip: Qualified Codes: S72.141A - Displaced intertrochanteric fracture of right femur , initial encounter for closed fracture (2) HTN (hypertension): Qualified Codes: I10 - Essential (primary) hypertension (3) COPD (chronic obstructive pulmonary disease): Qualified Codes: J43.9 - Emphysema, unspecified (4) Hypothyroid: Qualified Codes: E89.0 - Postprocedural hypothyroidism (5) Hypoparathyroidism: Qualified Codes: E20.8 - Other hypoparathyroidism Edmund Deluna MD Jul 18, 2017 09:38 Shanna Evans MD Jul 18, 2017 15:05
[2017-07-18] MEDS: CALCITRIOL 0.25 MCG CAP PO SCH ×2 (09:52→21:18)
[2017-07-18] MEDS: KETOROLAC TROMETHAMINE 30 MG/ML (IVP) VIAL IVP SCH ×3 (09:56→21:21)
[2017-07-18] MEDS: BUDESONIDE-FORMOTEROL 80/4.5 MCG INHALER INH SCH ×2 (09:56→21:27)
[2017-07-18] MEDS ORDERED: CALCIUM CARBONATE 1.25 GM (CA 500 MG) TAB PO ONE (10:00)
[2017-07-18] MEDS: POTASSIUM CHLORIDE 10 MEQ CONTROLLED RELEASE TAB PO SCH (10:02)
[2017-07-18] MEDS: MAGNESIUM OXIDE 400 MG TAB PO SCH (10:03)
[2017-07-18] MEDS ORDERED: ACETAMINOPHEN 1000 MG/100 ML 0 ML IV ONE (10:29)
--- NOTE | 2017-07-18 17:04 | PD.ORT.PN ---
Subjective Subjective Remarks Doing well. no issues Objective Vitals Vital Signs Date Time Temp Pulse Resp B/P (MAP) Pulse Ox O2 Delivery O2 Flow Rate FiO2 07/18/17 15:34 98.7 93 19 113/55 (74) 97 07/18/17 11:26 97.0 88 19 107/53 (71) 92 07/18/17 08:57 93 07/18/17 07:43 Room Air 07/18/17 07:33 98.6 80 19 105/49 (67) 91 07/18/17 04:30 98.2 82 18 120/58 (78) 92 07/18/17 00:00 98.8 95 17 122/59 (80) 93 07/17/17 19:59 95 Nasal Cannula 2.00 07/17/17 19:50 98.3 71 18 138/63 (88) 95 07/17/17 19:30 98.8 78 16 145/60 (88) 100 Nasal Cannula 2 07/17/17 19:15 80 14 155/69 (97) 100 Nasal Cannula 2 07/17/17 19:00 90 15 162/69 (100) 98 Nasal Cannula 3 07/17/17 18:44 98.8 93 17 131/59 (83) 99 Nasal Cannula 3 I/O 07/17/17 07/17/17 07/17/17 07/18/17 07/18/17 07/18/17 07:00 15:00 23:00 07:00 15:00 23:00 Intake Total 0 ml 0 ml 915 ml 0 ml Output Total 1200 ml 750 ml 250 ml Balance -1200 ml 0 ml 165 ml -250 ml Intake Oral 0 ml 0 ml 15 ml 0 ml IV Total 900 ml Output Urine Total 1200 ml 700 ml 250 ml Estimated Blood Loss 50 ml # Bowel Movements 0 0 Result Diagram: 07/18/17 0638 07/18/17 0638 Objective Remarks aaox3 RLE: nvi, dressing CDI. SILT distally Assessment & Plan Assessment and Plan POD 1- FOR RIGHT HIP IMN no issues abx lovenox, dvt ppt at dc qday dressing change pod2 50% wb ortho Denys Mccauley Jr., MD Jul 18, 2017 17:04
[2017-07-18] MEDS ORDERED: ZOLPIDEM TARTRATE 5 MG TAB PO PRN (21:00)
[2017-07-19] VITALS (12 sets, daily range): BP systolic 92–125; BP diastolic 43–57; PULSE 70–103; RESP 16–19; TEMP 96.6–98.7; O2SAT 92–98
[2017-07-19] MEDS ORDERED: ceFAZolin 1,000 MG/NS 100 ML IV ONE ×2 (02:00)
[2017-07-19] MEDS: KETOROLAC TROMETHAMINE 30 MG/ML (IVP) VIAL IVP SCH ×4 (03:10→19:47)
[2017-07-19] MEDS: LEVOTHYROXINE SODIUM 100 MCG TAB PO SCH (05:14)
[2017-07-19 07:23] LABS: MEAN CELL VOLUME 87.8 FL (80.0-100.0); MEAN CORPUSCULAR HEMOGLOBIN 30.5 PG (27.0-34.0); MEAN CORPUSCULAR HGB CONC 34.7 % (32.0-36.0); PLATELET COUNT 188 TH/MM3 (150-450); RED BLOOD COUNT 2.14 MIL/MM3 (4.00-5.30); RED CELL DISTRIBUTION WIDTH 13.7 % (11.6-17.2); WHITE BLOOD COUNT 13.1 TH/MM3 (4.0-11.0)
[2017-07-19 07:35] LABS: HEMATOCRIT 18.8 % (35.0-46.0); HEMOGLOBIN 6.5 GM/DL (11.6-15.3)
[2017-07-19 07:41] LABS: BICARBONATE 24.7 MEQ/L (21.0-32.0); CALCIUM 7.7 MG/DL (8.5-10.1)
[2017-07-19] MEDS: LACTOBACILLUS ACIDOPHILUS TAB PO SCH (08:17)
[2017-07-19] MEDS: RIVAROXABAN 10 MG TAB PO SCH (08:18)
[2017-07-19] MEDS: oxyCODONE/ACETAMINOPHEN 5 MG/325 MG TAB PO PRN ×2 (08:18→18:34)
[2017-07-19] MEDS: CALCITRIOL 0.25 MCG CAP PO SCH ×2 (08:18→19:47)
[2017-07-19] MEDS: CALCIUM/VITAMIN D 250 MG/125 U TAB PO SCH ×2 (08:18→19:47)
[2017-07-19] MEDS: DOCUSATE SODIUM 50 MG/SENNA 8.6 MG TAB PO SCH ×2 (08:18→19:48)
[2017-07-19] MEDS: PANTOPRAZOLE SOD 20 MG DELAYED RELEASE TAB PO SCH (08:18)
[2017-07-19] MEDS: LOSARTAN 50 MG TAB PO SCH (08:19)
[2017-07-19] MEDS: HYDROCHLOROTHIAZIDE 12.5 MG CAP PO SCH (08:19)
[2017-07-19] MEDS: POTASSIUM CHLORIDE 10 MEQ CONTROLLED RELEASE TAB PO SCH (08:20)
[2017-07-19] MEDS: BUDESONIDE-FORMOTEROL 80/4.5 MCG INHALER INH SCH ×2 (08:20→19:52)
[2017-07-19] MEDS: FUROSEMIDE 20 MG TAB PO SCH (08:24)
[2017-07-19] MEDS: SODIUM CHLORIDE 0.9% FLUSH 10 ML FLUSH IV FLUSH SCH ×2 (08:25→19:48)
[2017-07-19] MEDS ORDERED: SODIUM CHLOR 0.9% 250 ML INJ 250 ML IV ONE (10:00)
[2017-07-19] MEDS ORDERED: FUROSEMIDE 20 MG/2 ML VIAL IV PUSH ONE (10:00)
--- NOTE | 2017-07-19 10:06 | HHI.FPPN ---
Subjective Remarks Pt seen and examined this morning. Hb of 6.5 this morning. Pt denies any complaints. Pain well controlled. Sitting up in chair. Denies any dizziness, SOB. No chest pain, abdominal pain. Eager to get to rehab. (Edmund Deluna MD) Objective Vitals Vital Signs Date Time Temp Pulse Resp B/P (MAP) Pulse Ox O2 Delivery O2 Flow Rate FiO2 07/19/17 09:53 Room Air 07/19/17 07:31 98.6 80 19 106/45 (65) 92 07/19/17 03:30 97.0 88 16 125/56 (79) 95 07/19/17 01:05 97.3 73 16 98/48 (65) 96 07/18/17 19:30 96.4 90 17 100/47 (64) 96 07/18/17 17:05 97 21 07/18/17 15:34 98.7 93 19 113/55 (74) 97 07/18/17 11:26 97.0 88 19 107/53 (71) 92 I/O 07/18/17 07/18/17 07/18/17 07/19/17 07/19/17 07/19/17 07:00 15:00 23:00 07:00 15:00 23:00 Intake Total 0 ml 650 ml 480 ml Output Total 250 ml Balance -250 ml 650 ml 480 ml Intake Oral 0 ml 480 ml IV Total 650 ml Output Urine Total 250 ml # Voids 2 # Bowel Movements 0 0 (Edmund Deluna MD) Result Diagram: 07/19/17 0602 07/19/17 0602 Imaging Last Impressions Hip X-Ray 07/17/17 0000 Signed Impressions: Service Date/Time: Monday, July 17, 2017 18:07 - CONCLUSION: Intraoperative images. Esvin Hansen MD Radius/Ulna X-Ray 07/16/17 0000 Signed Impressions: Service Date/Time: Sunday, July 16, 2017 10:24 - CONCLUSION: Negative for fracture or dislocation. Follow up in 7-10 days is suggested if symptoms persist. Fausto Duval MD FACR Hip and Pelvis X-Ray 07/16/17 0000 Signed Impressions: Service Date/Time: Sunday, July 16, 2017 10:32 - CONCLUSION: Intertrochanteric fracture right hip Fausto Duval MD FACR Chest X-Ray 07/16/17 0000 Signed Impressions: Service Date/Time: Sunday, July 16, 2017 11:20 - CONCLUSION: Cardiomegaly with possible mild failure Fausto Duval MD FACR Objective Remarks GEN: Well-developed, well-nourished patient. No acute distress. Sitting up in chair. CV: Regular rate and rhythm without obvious murmurs LUNGS: Clear to auscultation bilaterally. Normal respiratory effort. No wheezes , rales, rhonchi. GI: Soft, nontender, nondistended. No palpable masses. Bowel sounds WNL. EXT: No edema. Right hip bandage in place. Peripheral pulses intact bilaterally. Able to wiggle her toes. Sensation intact NEURO/PSYCH: Afocal. Awake, alert, and oriented x3. Appropriate insight and judgment. (Edmund Deluna MD) A/P Assessment and Plan 86-year-old female with history of hypertension, COPD, hypothyroidism presents today after fall, found to have a right hip fracture. 6 for consult and plan to do surgery today. Patient will be kept nothing by mouth and we'll admit for management. Discharge Planning Discharge pending ortho clearance Will need placement to inpatient discharge (Edmund Deluna MD) Attending Attestation Pt. seen with niece in the room. C/O passing gas, but no BM. Feeling a bit nauseated this a.m. Would like to go to rehab. Understands she needs a transfusion. Patient seen and examined. Case reviewed and discussed with the resident team. Agree with plan of care as discussed with me and documented in the resident note. (Shanna Evans MD) Problem List: (1) Intertrochanteric fracture of right hip ICD Codes: S72.141A - Displaced intertrochanteric fracture of right femur, initial encounter for closed fracture Status: Acute Plan: Currently comfortable with on pain medications Hips/pelvis x-ray: intertrochanteric fracture right hip. -Orthopedics consulted -POD#2 from right intramedullary saran fixation -Will need PT at rehab -Pain control: Toradol scheduled, Percocet PRN, morphine breakthrough -Zofran PRN nausea -PT/OT -Scheduled jose guadalupe-colace (2) Anemia ICD Codes: D64.9 - Anemia, unspecified Status: Acute Plan: Hgb of 6.5 this morning. Asymptomatic -Will transfuse 2 units due to recent surgery and age -F/u post-transfusion H/H (3) HTN (hypertension) ICD Codes: I10 - Essential (primary) hypertension Status: Chronic Plan: Stable. Borderline low this morning -Continue home meds: Losartan-HCTZ, lasix -Hold for low BP (4) COPD (chronic obstructive pulmonary disease) ICD Codes: J44.9 - Chronic obstructive pulmonary disease, unspecified Status: Chronic Plan: History of emphysema from secondhand smoke -Continue home advair -Duonebs PRN SOB (5) Hypothyroid ICD Codes: E03.9 - Hypothyroidism, unspecified Status: Chronic Plan: Continue synthroid (6) Hypoparathyroidism ICD Codes: E20.9 - Hypoparathyroidism, unspecified Status: Chronic Plan: Continue Calcium supplements (7) Hypokalemia ICD Codes: E87.6 - Hypokalemia Status: Resolved Plan: K 3.1 on admission. Improving -Continue home supplement -Monitor, replace PRN (8) FEN Status: Acute Plan: Fluids: NS at 100mls/hr Electrolytes: monitor, replace PRN; see above Nutrition: regular diet DVT ppx: Xarelto (Edmund Deluna MD) Problem Qualifiers (1) Intertrochanteric fracture of right hip: Qualified Codes: S72.141A - Displaced intertrochanteric fracture of right femur , initial encounter for closed fracture (2) Anemia: Qualified Codes: D64.9 - Anemia, unspecified (3) HTN (hypertension): Qualified Codes: I10 - Essential (primary) hypertension (4) COPD (chronic obstructive pulmonary disease): Qualified Codes: J43.9 - Emphysema, unspecified (5) Hypothyroid: Qualified Codes: E89.0 - Postprocedural hypothyroidism (6) Hypoparathyroidism: Qualified Codes: E20.8 - Other hypoparathyroidism Edmund Deluna MD Jul 19, 2017 10:06 Shanna Evans MD Jul 19, 2017 15:00
[2017-07-19] MEDS: MAGNESIUM OXIDE 400 MG TAB PO SCH (10:11)
[2017-07-19] MEDS: SODIUM CHLOR 0.9% 1000 ML INJ 1,000 ML IV SCH ×2 (10:11→19:47)
[2017-07-19] MEDS ORDERED: CALCIUM CARBONATE 1.25 GM (CA 500 MG) TAB PO ONE (10:15)
--- NOTE | 2017-07-19 21:49 | PD.ORT.PN ---
Subjective Subjective Remarks Doing well. no issues Objective Vitals Vital Signs Date Time Temp Pulse Resp B/P (MAP) Pulse Ox O2 Delivery O2 Flow Rate FiO2 07/19/17 17:47 96.8 103 19 122/57 97 07/19/17 14:15 98.2 86 18 115/47 94 07/19/17 14:00 98.0 82 18 107/43 07/19/17 11:35 97.1 79 19 97/44 (61) 92 07/19/17 09:53 Room Air 07/19/17 07:31 98.6 80 19 106/45 (65) 92 07/19/17 03:30 97.0 88 16 125/56 (79) 95 07/19/17 01:05 97.3 73 16 98/48 (65) 96 I/O 07/18/17 07/18/17 07/18/17 07/19/17 07/19/17 07/19/17 07:00 15:00 23:00 07:00 15:00 23:00 Intake Total 0 ml 650 ml 480 ml 400 ml Output Total 250 ml 200 ml Balance -250 ml 650 ml 480 ml 200 ml Intake Oral 0 ml 480 ml IV Total 650 ml Packed Cells 400 ml Output Urine Total 250 ml 200 ml # Voids 2 1 # Bowel Movements 0 0 1 Result Diagram: 07/19/17 0602 07/19/17 0602 Objective Remarks aaox3 RLE: nvi, dressing CDI. SILT distally Assessment & Plan Assessment and Plan POD 2- FOR RIGHT HIP IMN no issues lovenox, dvt ppt at dc qday dressing change 50% wb ortho stable to dc Denys De La Cruz Jr., MD Jul 19, 2017 21:49
[2017-07-20 03:05] VITALS: BP 124/56; PULSE 70; RESP 17; TEMP 97.3; O2SAT 97
[2017-07-20] MEDS: KETOROLAC TROMETHAMINE 30 MG/ML (IVP) VIAL IVP SCH (03:14)
[2017-07-20] MEDS: LEVOTHYROXINE SODIUM 100 MCG TAB PO SCH (06:06)
[2017-07-20] MEDS: oxyCODONE/ACETAMINOPHEN 5 MG/325 MG TAB PO PRN ×2 (06:07→16:04)
[2017-07-20] MEDS: SODIUM CHLOR 0.9% 1000 ML INJ 1,000 ML IV SCH ×2 (06:08→16:41)
[2017-07-20 08:00] VITALS: BP 111/50; PULSE 65; RESP 16; TEMP 97.3; O2SAT 96
[2017-07-20 08:16] LABS: AUTOMATED NEUTROPHIL # 11.8 TH/MM3 (1.8-7.7); BASOPHIL # 0.1 TH/MM3 (0-0.2); BASOPHIL % 0.5 % (0.0-2.0); EOSINOPHIL # 0.3 TH/MM3 (0-0.4); HEMATOCRIT 28.6 % (35.0-46.0); LYMPHOCYTE # 1.5 TH/MM3 (1.0-4.8); MEAN CELL VOLUME 85.9 FL (80.0-100.0); MEAN CORPUSCULAR HEMOGLOBIN 29.8 PG (27.0-34.0); MEAN CORPUSCULAR HGB CONC 34.7 % (32.0-36.0); MEAN PLATELET VOLUME 8.7 FL (7.0-11.0); MONOCYTE # 1.3 TH/MM3 (0-0.9); NEUT % 78.5 % (16.0-70.0); PLATELET COUNT 239 TH/MM3 (150-450); RED BLOOD COUNT 3.33 MIL/MM3 (4.00-5.30); RED CELL DISTRIBUTION WIDTH 14.5 % (11.6-17.2)
[2017-07-20] MEDS: SODIUM CHLORIDE 0.9% FLUSH 10 ML FLUSH IV FLUSH SCH (08:31)
[2017-07-20] MEDS: PANTOPRAZOLE SOD 20 MG DELAYED RELEASE TAB PO SCH (08:31)
[2017-07-20] MEDS: BUDESONIDE-FORMOTEROL 80/4.5 MCG INHALER INH SCH (08:31)
[2017-07-20] MEDS: POTASSIUM CHLORIDE 10 MEQ CONTROLLED RELEASE TAB PO SCH (08:31)
[2017-07-20] MEDS: CALCIUM/VITAMIN D 250 MG/125 U TAB PO SCH (08:31)
[2017-07-20] MEDS: LACTOBACILLUS ACIDOPHILUS TAB PO SCH (08:32)
[2017-07-20] MEDS: FUROSEMIDE 20 MG TAB PO SCH (08:32)
[2017-07-20] MEDS: LOSARTAN 50 MG TAB PO SCH (08:32)
[2017-07-20] MEDS: HYDROCHLOROTHIAZIDE 12.5 MG CAP PO SCH (08:32)
[2017-07-20] MEDS: RIVAROXABAN 10 MG TAB PO SCH (08:32)
[2017-07-20] MEDS: CALCITRIOL 0.25 MCG CAP PO SCH (08:33)
[2017-07-20] MEDS: DOCUSATE SODIUM 50 MG/SENNA 8.6 MG TAB PO SCH (08:34)
[2017-07-20 08:39] LABS: BICARBONATE 27.3 MEQ/L (21.0-32.0); CREATININE 0.93 MG/DL (0.50-1.00)
--- NOTE | 2017-07-20 09:35 | HHI.FPPN ---
Subjective Remarks Pt seen and examined this morning. No acute events overnight. Reports pain well controlled this morning. Ready to go to rehab. Good appetite. Had bowel movement yesterday. Denies any other complaints, denies any chest pain, SOB, abdominal pain. (Edmund Deluna MD) Objective Vitals Vital Signs Date Time Temp Pulse Resp B/P (MAP) Pulse Ox O2 Delivery O2 Flow Rate FiO2 07/20/17 08:15 Room Air 07/20/17 08:00 97.3 65 16 111/50 (70) 96 07/20/17 03:05 97.3 70 17 124/56 97 07/19/17 23:35 97.3 70 17 108/47 95 07/19/17 23:30 96.6 86 16 112/44 (66) 98 07/19/17 23:15 96.6 86 16 112/44 98 07/19/17 22:12 96 07/19/17 20:00 98.7 84 18 92/52 (65) 95 07/19/17 17:47 96.8 103 19 122/57 97 07/19/17 14:15 98.2 86 18 115/47 94 07/19/17 14:00 98.0 82 18 107/43 07/19/17 11:35 97.1 79 19 97/44 (61) 92 07/19/17 09:53 Room Air I/O 07/19/17 07/19/17 07/19/17 07/20/17 07/20/17 07/20/17 07:00 15:00 23:00 07:00 15:00 23:00 Intake Total 480 ml 800 ml 420 ml Output Total 200 ml Balance 480 ml 600 ml 420 ml Intake Oral 480 ml 400 ml Packed Cells 400 ml 400 ml Blood Product IV Normal Saline Flush 20 ml Output Urine Total 200 ml # Voids 2 2 # Bowel Movements 0 1 (Edmund Deluna MD) Result Diagram: 07/20/17 0711 07/20/17 0711 Imaging Last Impressions Hip X-Ray 07/17/17 0000 Signed Impressions: Service Date/Time: Monday, July 17, 2017 18:07 - CONCLUSION: Intraoperative images. Esvin Hansen MD Radius/Ulna X-Ray 07/16/17 0000 Signed Impressions: Service Date/Time: Sunday, July 16, 2017 10:24 - CONCLUSION: Negative for fracture or dislocation. Follow up in 7-10 days is suggested if symptoms persist. Fausto Duval MD FACR Hip and Pelvis X-Ray 07/16/17 0000 Signed Impressions: Service Date/Time: Sunday, July 16, 2017 10:32 - CONCLUSION: Intertrochanteric fracture right hip Fausto Duval MD FACR Chest X-Ray 07/16/17 0000 Signed Impressions: Service Date/Time: Sunday, July 16, 2017 11:20 - CONCLUSION: Cardiomegaly with possible mild failure Fausto Duval MD FACR Objective Remarks GEN: Well-developed, well-nourished patient. No acute distress. Sitting up in chair. CV: Regular rate and rhythm without obvious murmurs LUNGS: Clear to auscultation bilaterally. Normal respiratory effort. No wheezes , rales, rhonchi. GI: Soft, nontender, nondistended. No palpable masses. Bowel sounds WNL. EXT: No edema. Right hip bandage in place, C/D/I. Peripheral pulses intact bilaterally. Able to wiggle her toes. Sensation intact NEURO/PSYCH: Afocal. Awake, alert, and oriented x3. (Edmund Deluna MD) A/P Assessment and Plan 86-year-old female with history of hypertension, COPD, hypothyroidism presents today after fall, found to have a right hip fracture. 6 for consult and plan to do surgery today. Patient will be kept nothing by mouth and we'll admit for management. Discharge Planning Cleared by Orthor D/c to inpatient rehab (Edmund Deluna MD) Attending Attestation Patient seen and examined at 9:45 AM today. Her niece was in the room, concerned about swelling in the left foot. Per patient, this is chronic and unchanged from before admission. She did have a BM yesterday and feels much better although she felt a little bit "weird" early this morning upon awakening. She is comfortable to go to either [facility] or [facility] for short term rehabilitation. I spoke with PT and OT and they are in agreement that she would benefit from short term therapy. I have a call into [facility] for a [id number] conversation, but if they do not get back to me by midday, patient agrees that she would be comfortable going to [facility]. It is noted that she does have pitting edema of the dorsum of the left foot as well as a chronic wound in the left lower leg medially from previous skin cancer. Patient reports these are unchanged. Patient seen and examined. Case reviewed and discussed with the resident team. Agree with plan of care as discussed with me and documented in the resident note. (Shanna Evans MD) Problem List: (1) Intertrochanteric fracture of right hip ICD Codes: S72.141A - Displaced intertrochanteric fracture of right femur, initial encounter for closed fracture Status: Acute Plan: Currently comfortable with on pain medications Hips/pelvis x-ray: intertrochanteric fracture right hip. -Orthopedics consulted -POD#3 from right intramedullary saran fixation -Will need PT at rehab -Lovenox dvt ppx on d/c -daily dressing changes -50% wb -Pain control: Toradol scheduled, Percocet PRN, morphine breakthrough -Zofran PRN nausea -PT/OT -Scheduled jose guadalupe-colace (2) Anemia ICD Codes: D64.9 - Anemia, unspecified Status: Acute Plan: s/p 2 units transfused: Hb 10.0 this morning. -Stable this morning. Asymptomatic. (3) HTN (hypertension) ICD Codes: I10 - Essential (primary) hypertension Status: Chronic Plan: Stable. Borderline low this morning -Continue home meds: Losartan-HCTZ, lasix -Hold for low BP (4) COPD (chronic obstructive pulmonary disease) ICD Codes: J44.9 - Chronic obstructive pulmonary disease, unspecified Status: Chronic Plan: History of emphysema from secondhand smoke -Continue home advair -Duonebs PRN SOB (5) Hypothyroid ICD Codes: E03.9 - Hypothyroidism, unspecified Status: Chronic Plan: Continue synthroid (6) Hypoparathyroidism ICD Codes: E20.9 - Hypoparathyroidism, unspecified Status: Chronic Plan: Continue Calcium supplements (7) Hypokalemia ICD Codes: E87.6 - Hypokalemia Status: Resolved Plan: K 3.1 on admission. Improving -Continue home supplement -Monitor, replace PRN (8) FEN Status: Acute Plan: Fluids: NS at 100mls/hr Electrolytes: monitor, replace PRN; see above Nutrition: regular diet DVT ppx: Xarelto, lovenox on d/c (Edmund Deluna MD) Problem Qualifiers (1) Intertrochanteric fracture of right hip: Qualified Codes: S72.141A - Displaced intertrochanteric fracture of right femur , initial encounter for closed fracture (2) Anemia: Qualified Codes: D64.9 - Anemia, unspecified (3) HTN (hypertension): Qualified Codes: I10 - Essential (primary) hypertension (4) COPD (chronic obstructive pulmonary disease): Qualified Codes: J43.9 - Emphysema, unspecified (5) Hypothyroid: Qualified Codes: E89.0 - Postprocedural hypothyroidism (6) Hypoparathyroidism: Qualified Codes: E20.8 - Other hypoparathyroidism Edmund Deluna MD Jul 20, 2017 09:35 Shanna Evans MD Jul 20, 2017 10:34
[2017-07-20] MEDS: MAGNESIUM OXIDE 400 MG TAB PO SCH (10:09)
[2017-07-20 12:00] VITALS: BP 114/60; PULSE 78; RESP 18; TEMP 96.3; O2SAT 98
--- NOTE | 2017-07-20 13:33 | HHI.DCPOC ---
Discharge Care Plan Diagnosis: (1) Intertrochanteric fracture of right hip (2) Hypothyroid (3) HTN (hypertension) (4) Hypoparathyroidism (5) COPD (chronic obstructive pulmonary disease) (6) Anemia Goals to Promote Your Health * To prevent worsening of your condition and complications * To maintain your health at the optimal level Directions to Meet Your Goals Take your medications as prescribed Follow your dietary instruction Follow activity as directed Keep your appointments as scheduled Take your immunizations and boosters as scheduled If your symptoms worsen call your PCP, if no PCP go to Urgent Care Center or Emergency Room Smoking is Dangerous to Your Health. Avoid second hand smoke Call the 24-hour hour crisis hotline for domestic abuse at Edmund Deluna MD Jul 20, 2017 13:32
[2017-07-20] MEDS ORDERED: ENOX40P SQ (13:36)
[2017-07-20 16:00] VITALS: BP 129/57; PULSE 77; RESP 18; TEMP 98.9; O2SAT 97
[2017-07-20] MEDS ORDERED: OXYC1TAB63 PO (17:28)
--- NOTE | 2017-07-20 17:48 | PD.ORT.PN ---
Subjective Subjective Remarks Doing well Objective Vitals Vital Signs Date Time Temp Pulse Resp B/P (MAP) Pulse Ox O2 Delivery O2 Flow Rate FiO2 07/20/17 16:00 98.9 77 18 129/57 (81) 97 07/20/17 12:00 96.3 78 18 114/60 (78) 98 07/20/17 08:15 Room Air 07/20/17 08:00 97.3 65 16 111/50 (70) 96 07/20/17 03:05 97.3 70 17 124/56 97 07/19/17 23:35 97.3 70 17 108/47 95 07/19/17 23:30 96.6 86 16 112/44 (66) 98 07/19/17 23:15 96.6 86 16 112/44 98 07/19/17 22:12 96 07/19/17 20:00 98.7 84 18 92/52 (65) 95 I/O 07/19/17 07/19/17 07/19/17 07/20/17 07/20/17 07/20/17 07:00 15:00 23:00 07:00 15:00 23:00 Intake Total 480 ml 800 ml 420 ml 600 ml Output Total 200 ml Balance 480 ml 600 ml 420 ml 600 ml Intake Oral 480 ml 400 ml 600 ml Packed Cells 400 ml 400 ml Blood Product IV Normal Saline Flush 20 ml Output Urine Total 200 ml # Voids 2 2 1 # Bowel Movements 0 1 0 Result Diagram: 07/20/17 0711 07/20/17 0711 Objective Remarks aaox3 RLE: nvi, dressing CDI. SILT distally Assessment & Plan Assessment and Plan POD 3- RIGHT HIP IMN no issues lovenox, dvt ppt at dc qday dressing change 50% wb ortho stable to dc Denys De La Cruz Jr., MD Jul 20, 2017 17:48
--- NOTE | 2017-07-20 19:13 | HHI.DS ---
Discharge Summary Admission Date Jul 16, 2017 at 12:19 Discharge Date: Jul 20, 2017 Admitting Diagnosis right hip fracture (1) Intertrochanteric fracture of right hip Diagnosis: Principal Plan: Currently comfortable with on pain medications Hips/pelvis x-ray: intertrochanteric fracture right hip. -Orthopedics consulted -POD#3 from right intramedullary saran fixation -Will need PT at rehab -Lovenox dvt ppx on d/c -daily dressing changes -50% wb -Pain control: Toradol scheduled, Percocet PRN, morphine breakthrough -Zofran PRN nausea -PT/OT -Scheduled jose guadalupe-colace ICD Codes: S72.141A - Displaced intertrochanteric fracture of right femur, initial encounter for closed fracture Status: Acute (2) Anemia Diagnosis: Secondary Plan: s/p 2 units transfused: Hb 10.0 this morning. -Stable this morning. Asymptomatic. ICD Codes: D64.9 - Anemia, unspecified Status: Acute (3) HTN (hypertension) Diagnosis: Secondary Plan: Stable. Borderline low this morning -Continue home meds: Losartan-HCTZ, lasix -Hold for low BP ICD Codes: I10 - Essential (primary) hypertension Status: Chronic (4) COPD (chronic obstructive pulmonary disease) Diagnosis: Secondary Plan: History of emphysema from secondhand smoke -Continue home advair -Duonebs PRN SOB ICD Codes: J44.9 - Chronic obstructive pulmonary disease, unspecified Status: Chronic (5) Hypothyroid Diagnosis: Secondary Plan: Continue synthroid ICD Codes: E03.9 - Hypothyroidism, unspecified Status: Chronic (6) Hypoparathyroidism Diagnosis: Secondary Plan: Continue Calcium supplements ICD Codes: E20.9 - Hypoparathyroidism, unspecified Status: Chronic (7) Hypokalemia Diagnosis: Secondary Plan: K 3.1 on admission. Improving -Continue home supplement -Monitor, replace PRN ICD Codes: E87.6 - Hypokalemia Status: Resolved (8) FEN Diagnosis: Secondary Plan: Fluids: NS at 100mls/hr Electrolytes: monitor, replace PRN; see above Nutrition: regular diet DVT ppx: Xarelto, lovenox on d/c Status: Acute Consultants Orthopedics Procedures Right intramedullary saran fixation Brief History 86-year-old female with history of hypertension, COPD, hypothyroidism presents after a fall. Patient states she slipped and fell this morning around 8 :30 AM at [employer] in the bathroom. She said that he'll honor slough slid out and then she fell over. Denies hitting her head. Was on a tile floor in the restroom. She stated she landed on her right hip. Denies any loss of consciousness. Was transferred here by paramedics. Denies any other fractures, besides couple rib fractures in the past. She states she is having a lot of pain in her right groin. Denies any pain anywhere else. Did hit her right arm, with a superficial wound, but x-ray was negative. She states she fell couple months ago in the kitchen by herself, unsure of the cause. Otherwise, she stated her last fall was in 2011. And since then, she has had right foot drop. She does breast self in her house. Does not use assistive device at home. Neighbor occasionally will bring her food. Drives herself and fully independent. CBC/BMP: 07/20/17 0711 07/20/17 0711 Significant Findings Laboratory Tests Test 07/18/17 06:38 07/19/17 06:02 07/20/17 07:11 White Blood Count 16.3 TH/MM3 (4.0-11.0) 13.1 TH/MM3 (4.0-11.0) 15.0 TH/MM3 (4.0-11.0) Red Blood Count 2.59 MIL/MM3 (4.00-5.30) 2.14 MIL/MM3 (4.00-5.30) 3.33 MIL/MM3 (4.00-5.30) Hemoglobin 7.9 GM/DL (11.6-15.3) 6.5 GM/DL (11.6-15.3) 10.0 GM/DL (11.6-15.3) Hematocrit 22.9 % (35.0-46.0) 18.8 % (35.0-46.0) 28.6 % (35.0-46.0) Random Glucose 109 MG/DL (74-106) Total Protein 6.0 GM/DL (6.4-8.2) Albumin 2.6 GM/DL (3.4-5.0) Calcium Level 6.9 MG/DL (8.5-10.1) 7.7 MG/DL (8.5-10.1) 8.0 MG/DL (8.5-10.1) Alkaline Phosphatase 38 U/L (45-117) Estimat Glomerular Filtration Rate 64 ML/MIN (>89) 52 ML/MIN (>89) 57 ML/MIN (>89) Protein Corrected Calcium 7.5 MG/DL (8.5-10.1) Blood Urea Nitrogen 22 MG/DL (7-18) 22 MG/DL (7-18) Potassium Level 3.4 MEQ/L (3.5-5.1) Neutrophils (%) (Auto) 78.5 % (16.0-70.0) Monocytes (%) (Auto) 9.0 % (0.0-8.0) Neutrophils # (Auto) 11.8 TH/MM3 (1.8-7.7) Monocytes # (Auto) 1.3 TH/MM3 (0-0.9) Sodium Level 135 MEQ/L (136-145) Imaging Last Impressions Hip X-Ray 07/17/17 0000 Signed Impressions: Service Date/Time: Monday, July 17, 2017 18:07 - CONCLUSION: Intraoperative images. Esvin Hansen MD Radius/Ulna X-Ray 07/16/17 0000 Signed Impressions: Service Date/Time: Sunday, July 16, 2017 10:24 - CONCLUSION: Negative for fracture or dislocation. Follow up in 7-10 days is suggested if symptoms persist. Fausto Duval MD FACR Hip and Pelvis X-Ray 07/16/17 0000 Signed Impressions: Service Date/Time: Sunday, July 16, 2017 10:32 - CONCLUSION: Intertrochanteric fracture right hip Fausto Duval MD FACR Chest X-Ray 07/16/17 0000 Signed Impressions: Service Date/Time: Sunday, July 16, 2017 11:20 - CONCLUSION: Cardiomegaly with possible mild failure Fausto Duval MD FACR PE at Discharge GEN: Well-developed, well-nourished patient. No acute distress. Sitting up in chair. CV: Regular rate and rhythm without obvious murmurs LUNGS: Clear to auscultation bilaterally. Normal respiratory effort. No wheezes , rales, rhonchi. GI: Soft, nontender, nondistended. No palpable masses. Bowel sounds WNL. EXT: No edema. Right hip bandage in place, C/D/I. Peripheral pulses intact bilaterally. Able to wiggle her toes. Sensation intact NEURO/PSYCH: Afocal. Awake, alert, and oriented x3. Hospital Course 86-year-old female with history of hypertension, COPD, hypothyroidism presented after a fall. Found to have right hip fracture on imaging. Orthopedics were consulted with plan to take patient back for surgery the next day. Patient tolerated procedure well. Patient remained stable and worked with physical therapy, who recommended discharge to SNF. Patient was found to have anemia with hemoglobin of 6.5, patient was transferred 2 units of packed red blood cells. Patient continued to remain stable and was discharged to SNF with inpatient rehabilitation. Pt Condition on Discharge: Stable Discharge Disposition: Discharge to SNF Discharge Instructions DIET: Follow Instructions for: As Tolerated, No Restrictions Activities you can perform: Partial Weight Bearing Follow up Referrals: Orthopedics - 1 Month with Denys De La Cruz Jr., MD PCP Follow-up - 1 Week New Medications: Enoxaparin Inj (Lovenox Inj) 40 Mg/0.4 Ml Syr 40 MG SQ DAILY for Blood Clot Prevention, #30 SYRINGE 0 Refills Oxycodone HCl/Acetaminophen (Oxycodone-Acetaminophen 5-325) 5 Mg-325 Mg Tablet 1 TAB PO Q4H PRN for PAIN GREATER THAN 6, #30 Continued Medications: Albuterol 6.7 GM Inh (Proventil Hfa 6.7 GM Inh) 90 Mcg/Act Aer 2 PUFF INH Q4-6H PRN for SHORTNESS OF BREATH, #1 INHALER 0 Refills Albuterol Neb (Albuterol Neb) 0.63 Mg/3 Ml Neb 0.63 MG NEB TID NEB PRN for SHORTNESS OF BREATH, #100 NEBULE 0 Refills Calcitriol (Calcitriol) 0.25 Mcg Cap 0.25 MCG PO BID NEB for Calcium Supplement, #30 CAP 0 Refills Calcium Carbonate-Cholecalciferol (Calcium 500 +D) 500-400 Mg-Unit Tab 1 TAB PO BID for Calcium Supplement, #62 TAB 0 Refills Fexofenadine (Cecile Allergy) 60 Mg Tab 60 MG PO BID for Allergy Management, #60 TAB 0 Refills Fluticasone-Salmeterol Inh (Advair Diskus Inh) 100-50 Mcg/Blist Aer 1 PUFF INH BID for Asthma Management, #1 INHALER 0 Refills Rinse mouth after use. Furosemide (Furosemide) 20 Mg Tab 20 MG PO DAILY, #30 TAB 0 Refills Lactobacillus Acidophilus (Probiotic) 10 Billion Cell Cap 1 CAP PO DAILY for Nutritional Supplement, #90 CAP 0 Refills Levothyroxine (Synthroid) 100 Mcg Tab 100 MCG PO DAILY for Thyroid, #30 TAB 0 Refills Losartan-Hydrochlorothiazide (Losartan-Hydrochlorothiazide) 50-12.5 Mg Tab 1 TAB PO DAILY for Blood Pressure Management, #30 TAB 0 Refills Magnesium Oxide (Magnesium Oxide) 400 Mg Tab 400 MG PO DAILY for Nutritional Supplement, TAB 0 Refills Omeprazole (Omeprazole) 20 Mg Tab 20 MG PO DAILY, #30 TAB 0 Refills Potassium Chloride ER (Klor-Con 10) 10 Meq Tab 10 MEQ PO DAILY for Electrolyte Replacement, #30 TAB 0 Refills Discontinued Medications: Levothyroxine (Synthroid) 100 Mcg Tab 100 MCG PO DAILY for Thyroid, #30 TAB 0 Refills Edmund Deluna MD Jul 20, 2017 19:13
== END 2017-07-20 19:10 | DRG 482 ==
LOC: NEPC 09:42 → NEDA 12:19 → N06A 14:35
PROVIDERS: ADMIT Family Medicine; ATTEND Family Medicine
PROC: 0QS606Z Reposition Right Upper Femur with Intramedullary Internal Fixation Device, Open Approach (ICD-10-PCS; principal; 2017-07-17 16:47)
PROC: 30233N1 Transfusion of Nonautologous Red Blood Cells into Peripheral Vein, Percutaneous Approach (ICD-10-PCS; 2017-07-19)
DX: S72.141A Displaced intertrochanteric fracture of right femur, initial encounter for closed fracture (principal); I95.9 Hypotension, unspecified; J44.9 Chronic obstructive pulmonary disease, unspecified; I11.9 Hypertensive heart disease without heart failure; D64.9 Anemia, unspecified; I73.9 Peripheral vascular disease, unspecified; S51.011A Laceration without foreign body of right elbow, initial encounter; M41.9 Scoliosis, unspecified; D72.829 Elevated white blood cell count, unspecified; E89.0 Postprocedural hypothyroidism; E07.9 Disorder of thyroid, unspecified; E87.6 Hypokalemia; E78.00 Pure hypercholesterolemia, unspecified; M21.371 Foot drop, right foot; E20.8 Other hypoparathyroidism; J45.909 Unspecified asthma, uncomplicated; K21.9 Gastro-esophageal reflux disease without esophagitis; Z77.22 Contact with and (suspected) exposure to environmental tobacco smoke (acute) (chronic); W01.0XXA Fall on same level from slipping, tripping and stumbling without subsequent striking against object, initial encounter; Z23 Encounter for immunization; Z91.81 History of falling; Y92.22 Religious institution as the place of occurrence of the external cause
CPT/HCPCS: 36430; 71045; 73090; 73502; 76000; 80048; 80053; 85025; 85027; 85610; 85730; 86850; 86900; 86901; 86920; 90471; 90714; 93005; 94150; 96374; C1713; J0131; J1100; J1580; J1885; J1940; J2270; J2370; J2405; J2710; J3010; J3370; J7030; J7050; J7120; P9016

== ENCOUNTER 2017-08-19 16:25 | Emergency (ER) | payer MEDICARE ==
[~2017-08-19 16:25] MED LIST changes: +ALBU0.63 NEB; +ALBU6.7H INH; +ALLE60TA PO; +ENOX40P SQ; +KLOR10TA PO; +LACTCAP8 PO; +OXYC1TAB63 PO; -POTA10TA2 PO
[2017-08-19 16:47] VITALS: BP 122/56; PULSE 73; RESP 16; TEMP 98.5; O2SAT 96
[2017-08-19] MEDS ORDERED: SODIUM CHLORIDE 0.9% FLUSH 10 ML FLUSH IVF PRN (19:00)
--- NOTE | 2017-08-19 19:00 | PD ---
HPI Chief Complaint: Dizziness Time Seen by Provider: 18:34 Travel History International Travel<30 days: No Contact w/Intl Traveler<30days: No Traveled to known affect area: No History of Present Illness HPI Patient is an 78-year-old female presents for evaluation of generalized fatigue and redness of the right lower extremity. The patient recently admitted to the hospital for right hip fracture status post pinning was released from rehabilitation today, she states that she had been complaining of this fatigue for some time and really wanted to be checked out. She states the last time this happened to her calcium and potassium were elevated because she was significantly dehydrated and had to be admitted to the hospital and she is concerned that this happened again. She has no focalized weakness no dizziness no presyncopal symptoms. She states symptoms are for the past week, context as above, associated signs symptoms as above. PFSH Past Medical History Asthma: Yes Heart Rhythm Problems: No Cancer: No Cardiovascular Problems: Yes High Cholesterol: Yes Chest Pain: No Congestive Heart Failure: No COPD: Yes Cerebrovascular Accident: No Diabetes: No Diminished Hearing: No Endocrine: No Gastrointestinal Disorders: No Genitourinary: No Headaches: No Hepatitis: No Hiatal Hernia: No Hypertension: Yes Implanted Vascular Access Dvce: No Musculoskeletal: No Neurologic: Yes Psychiatric: No Reproductive: No Respiratory: Yes (COPD) Migraines: No Seizures: No Sleep Apnea: No Thyroid Disease: Yes Influenza Vaccination: Yes ?: Not Menopausal: Yes : 0 Para: 0 Miscarriage: 0 : 0 Past Surgical History Abdominal Surgery: No Cardiac Surgery: No Ear Surgery: No Endocrine Surgery: No Eye Surgery: No Genitourinary Surgery: No Gynecologic Surgery: No Neurologic Surgery: No Oral Surgery: Yes (TONSILECTOMY) Thoracic Surgery: No Tonsillectomy: Yes Other Surgery: Yes (PARATHYROIDECTOMY) Social History Alcohol Use: No Tobacco Use: No Substance Use: No Allergies-Medications (Allergen,Severity, Reaction): Coded Allergies: penicillin G (Verified Allergy, Intermediate, Rash, 08/19/17) sulfite (Verified Allergy, Intermediate, Rash, 08/19/17) Reported Meds & Prescriptions Reported Meds & Active Scripts Active Keflex (Cephalexin) 500 Mg Cap 500 Mg PO Q6H 7 Days Calcium 500 +D (Calcium Carbonate-Cholecalciferol) 500-400 Mg-Unit Tab 1 Tab PO BID Reported Levofloxacin 500 Mg Tablet 500 Mg PO DAILY Potassium Chloride ER (Potassium Chloride) 20 Meq Tab 20 Meq PO DAILY Lasix (Furosemide) 40 Mg Tab 40 Mg PO DAILY Proventil Hfa 6.7 GM Inh (Albuterol Sulfate) 90 Mcg/Act Aer 2 Puff INH Q4-6H PRN Albuterol Neb (Albuterol Sulfate) 0.63 Mg/3 Ml Neb 0.63 Mg NEB TID NEB PRN Cecile Allergy (Fexofenadine HCl) 60 Mg Tab 60 Mg PO BID Magnesium Oxide 400 Mg Tab 400 Mg PO DAILY Synthroid (Levothyroxine Sodium) 100 Mcg Tab 100 Mcg PO DAILY Calcitriol 0.25 Mcg Cap 0.25 Mcg PO BID NEB Losartan-Hydrochlorothiazide 50-12.5 Mg Tab 1 Tab PO DAILY Omeprazole 20 Mg Tab 20 Mg PO DAILY Advair Diskus Inh (Fluticasone-Salmeterol Inh) 100-50 Mcg/Blist Aer 1 Puff INH BID Rinse mouth after use. Review of Systems Except as stated in HPI: all other systems reviewed are Neg Physical Exam Narrative GENERAL: Well-developed well-nourished no obvious distress. SKIN: Focused skin assessment warm/dry. Surgical site healing well. HEAD: Atraumatic. Normocephalic. EYES: Pupils equal and round. No scleral icterus. No injection or drainage. ENT: No nasal bleeding or discharge. Mucous membranes pink and moist. NECK: Trachea midline. No JVD. CARDIOVASCULAR: Regular rate and rhythm. No murmur appreciated. RESPIRATORY: No accessory muscle use. Clear to auscultation. Breath sounds equal bilaterally. GASTROINTESTINAL: Abdomen soft, non-tender, nondistended. Hepatic and splenic margins not palpable. MUSCULOSKELETAL: No obvious deformities. No clubbing. No cyanosis. Patient has swelling of the lower extremities, there is some mild erythema over the distal tibia, according the patient is starting to get better. NEUROLOGICAL: Awake and alert. Cranial nerves II through XII grossly intact and nonfocal, 5 out of 5 strength in all 4 extremities. PSYCHIATRIC: Appropriate mood and affect; insight and judgment normal. Data Data Last Documented VS Vital Signs Date Time Temp Pulse Resp B/P (MAP) Pulse Ox O2 Delivery O2 Flow Rate FiO2 08/19/17 21:59 75 16 135/67 (89) 98 08/19/17 21:23 Room Air 08/19/17 16:47 98.5 Orders Orders Electrocardiogram (08/19/17 18:48) Basic Metabolic Panel (Bmp) (08/19/17 18:48) Complete Blood Count With Diff (08/19/17 18:48) Magnesium (Mg) (08/19/17 18:48) Chest, Single Ap (08/19/17 18:48) Ecg Monitoring (08/19/17 18:48) Iv Access Insert/Monitor (08/19/17 18:48) Oximetry (08/19/17 18:48) Oxygen Administration (08/19/17 18:48) Sodium Chloride 0.9% Flush (Ns Flush) (08/19/17 19:00) Urinalysis - C+S If Indicated (08/19/17 19:42) Urinalysis - C+S If Indicated (08/19/17 21:12) Ed Discharge Order (08/19/17 21:39) Labs Laboratory Tests Test 08/19/17 18:50 08/19/17 20:20 White Blood Count 15.4 TH/MM3 Red Blood Count 4.40 MIL/MM3 Hemoglobin 13.3 GM/DL Hematocrit 39.0 % Mean Corpuscular Volume 88.7 FL Mean Corpuscular Hemoglobin 30.1 PG Mean Corpuscular Hemoglobin Concent 34.0 % Red Cell Distribution Width 13.8 % Platelet Count 407 TH/MM3 Mean Platelet Volume 9.3 FL Neutrophils (%) (Auto) 82.4 % Lymphocytes (%) (Auto) 9.0 % Monocytes (%) (Auto) 6.6 % Eosinophils (%) (Auto) 0.9 % Basophils (%) (Auto) 1.1 % Neutrophils # (Auto) 12.7 TH/MM3 Lymphocytes # (Auto) 1.4 TH/MM3 Monocytes # (Auto) 1.0 TH/MM3 Eosinophils # (Auto) 0.1 TH/MM3 Basophils # (Auto) 0.2 TH/MM3 CBC Comment AUTO DIFF Differential Comment AUTO DIFF CONFIRMED Platelet Estimate NORMAL Platelet Morphology Comment NORMAL Red Cell Morphology Comment NORMAL Blood Urea Nitrogen 22 MG/DL Creatinine 1.10 MG/DL Random Glucose 98 MG/DL Calcium Level 9.0 MG/DL Magnesium Level 2.0 MG/DL Sodium Level 131 MEQ/L Potassium Level 3.2 MEQ/L Chloride Level 93 MEQ/L Carbon Dioxide Level 30.9 MEQ/L Anion Gap 7 MEQ/L Estimat Glomerular Filtration Rate 47 ML/MIN Urine Collection Type CLEAN CATCH Urine Color YELLOW Urine Turbidity CLEAR Urine pH 6.5 Urine Specific [place] LESS/EQUAL 1.005 Urine Protein NEG mg/dL Urine Glucose (UA) NEG mg/dL Urine Ketones NEG mg/dL Urine Occult Blood NEG Urine Nitrite NEG Urine Bilirubin NEG Urine Urobilinogen 0.2 MG/DL Urine Leukocyte Esterase NEG Urine RBC 0-3 /hpf Urine WBC 0-2 /hpf Urine Squamous Epithelial Cells 0-5 /hpf Urine Amorphous Sediment Urine Hyaline Casts 3-5 /lpf Urine Mucus RARE /lpf Microscopic Urinalysis Comment CULT NOT INDICATED MDM Medical Decision Making Medical Screen Exam Complete: Yes Emergency Medical Condition: Yes Differential Diagnosis Anemia, acute kidney injury, lecture lead abnormality, cellulitis, posthospitalization fatigue peer Narrative Course Patient room to the emergency department, she appears quite well in obvious distress and my impression of hers she is healing quite well from her hip. She does have mild cellulitis of her lower extremity, she states she was placed on Levaquin for this in view of her indications which is brought with her has her on Levaquin. Leda choice for cellulitis. Patient being worked up electrolyte is within normal limits, EKG chest x-ray negative, UA negative. The this time that the patient would do well from discharge from the hospital is starting on Keflex. I will have her continue the Levaquin is possible she is on this medication for some other reason that I do not appreciate here. At this time she is stable for discharge. Discussed need for follow-up with her primary care physician as scheduled. Diagnosis Primary Impression: Fatigue Med/Other Pt SpecificInfo: Prescription(s) given Scripts Cephalexin (Keflex) 500 Mg Cap 500 MG PO Q6H for Infection for 7 Days, #28 CAP 0 Refills Prov: Silas Mcintosh MD 08/19/17 Disposition: 01 DISCHARGE HOME Condition: Stable Silas Mcintosh MD Aug 19, 2017 19:00
[2017-08-19 19:01] LABS: AUTOMATED NEUTROPHIL # 12.7 TH/MM3 (1.8-7.7); BASOPHIL # 0.2 TH/MM3 (0-0.2); BASOPHIL % 1.1 % (0.0-2.0); EOSINOPHIL # 0.1 TH/MM3 (0-0.4); EOSINOPHIL % 0.9 % (0.0-4.0); HEMOGLOBIN 13.3 GM/DL (11.6-15.3); LYMPHOCYTE # 1.4 TH/MM3 (1.0-4.8); MEAN CELL VOLUME 88.7 FL (80.0-100.0); MEAN CORPUSCULAR HEMOGLOBIN 30.1 PG (27.0-34.0); MEAN PLATELET VOLUME 9.3 FL (7.0-11.0); MONO % 6.6 % (0.0-8.0); NEUT % 82.4 % (16.0-70.0); PLATELET COUNT 407 TH/MM3 (150-450); RED CELL DISTRIBUTION WIDTH 13.8 % (11.6-17.2); WHITE BLOOD COUNT 15.4 TH/MM3 (4.0-11.0)
[2017-08-19 19:02] VITALS: BP 112/64; PULSE 87; RESP 18; O2SAT 97
[2017-08-19 19:11] LABS: BICARBONATE 30.9 MEQ/L (21.0-32.0)
[2017-08-19] MEDS ORDERED: POTA-163 PO (19:12)
[2017-08-19] MEDS ORDERED: FURO1TAB60 PO (19:12)
[2017-08-19 19:14] LABS: CREATININE 1.1 MG/DL (0.50-1.00)
--- NOTE | 2017-08-19 19:24 | RADRPT ---
EXAM DATE/TIME: 08/19/2017 18:53 [facility] COMPARISON: CHEST SINGLE AP, July 16, 2017, 11:20. INDICATIONS : Chest pain. MEDICAL HISTORY : Chronic obstructive pulmonary disease. Hypertension. SURGICAL HISTORY : Right hip. ENCOUNTER: Initial ACUITY: 1 day PAIN SCORE: 1/10 LOCATION: Bilateral chest FINDINGS: A single view of the chest demonstrates the lungs to be symmetrically aerated without evidence of mas s, infiltrate or effusion. The cardiomediastinal contours are unremarkable. Osseous structures are intact. CONCLUSION: No acute disease. Wally Reese MD on August 19, 2017 at 19:20 Board Certified Radiologist. This report was verified electronically.
[2017-08-19] MEDS ORDERED: LEVO500T8 PO (20:09)
[2017-08-19 21:22] LABS: BILIRUBIN, URINE NEG (NEG); BLOOD, URINE NEG (NEG); GLUCOSE,URINE NEG (NEG); KETONE, URINE NEG (NEG); NITRITE,URINE NEG (NEG); PH, URINE 6.5 (5.0-8.5); URINE COLOR YELLOW (YELLW/STRAW); URINE LEUKOCYTE ESTERASE NEG (NEG)
[2017-08-19 21:23] VITALS: BP 123/57; PULSE 87; RESP 18; O2SAT 96
[2017-08-19 21:39] LABS: RBC, URINE 0-3 /hpf (0-3); SQUAMOUS EPITHELIAL CELL URINE 0-5 /hpf (0-5); WBC, URINE 0-2 /hpf (0-5)
[2017-08-19 21:41] LABS: MUCUS URINE RARE /lpf (OCC)
[2017-08-19] MEDS ORDERED: CEPH-460 PO (21:41)
[2017-08-19 21:59] VITALS: BP 135/67
--- NOTE | 2017-08-21 09:41 | EKG ---
Date Performed: 08/19/2017 Time Performed: 19:03:30 PTAGE: 86 years EKG: Sinus rhythm WITH SINUS ARRHYTHMIA WITH FIRST DEGREE AV BLOCK RIGHT BUNDLE BRANCH BLOCK ABNORMAL ECG PREVIOUS TRACING : 07/16/2017 11.02 Since previous tracing, the right bundle branch block is ne w. DOCTOR: Manuel Landry Interpretating Date/Time 08/21/2017 09:40:57
== END 2017-08-19 22:15 | disposition home or self-care (01) ==
LOC: PHED 16:25
DX: R53.83 Other fatigue (principal); R94.31 Abnormal electrocardiogram [ECG] [EKG]; E78.00 Pure hypercholesterolemia, unspecified; J44.9 Chronic obstructive pulmonary disease, unspecified; I10 Essential (primary) hypertension
CPT/HCPCS: 71045; 80048; 81001; 83735; 85025; 93005

== ENCOUNTER → 2017-08-23 | Outpatient (CLI) | payer MEDICARE ==
[~2017-08-23] MED LIST changes: +CEPH-460 PO; +FURO1TAB60 PO; +LEVO500T8 PO; +POTA-163 PO
[2017-08-23 18:19] LABS: AUTOMATED NEUTROPHIL # 13.1 TH/MM3 (1.8-7.7); BASOPHIL # 0.1 TH/MM3 (0-0.2); BASOPHIL % 0.5 % (0.0-2.0); EOSINOPHIL # 0.1 TH/MM3 (0-0.4); EOSINOPHIL % 0.4 % (0.0-4.0); HEMATOCRIT 37.8 % (35.0-46.0); HEMOGLOBIN 12.6 GM/DL (11.6-15.3); LYMPHOCYTE # 1.8 TH/MM3 (1.0-4.8); MEAN CELL VOLUME 88.7 FL (80.0-100.0); MEAN CORPUSCULAR HEMOGLOBIN 29.7 PG (27.0-34.0); MEAN CORPUSCULAR HGB CONC 33.5 % (32.0-36.0); MONO % 7.2 % (0.0-8.0); MONOCYTE # 1.2 TH/MM3 (0-0.9); NEUT % 80.9 % (16.0-70.0); PLATELET COUNT 377 TH/MM3 (150-450); RED BLOOD COUNT 4.26 MIL/MM3 (4.00-5.30); RED CELL DISTRIBUTION WIDTH 14.5 % (11.6-17.2); WHITE BLOOD COUNT 16.2 TH/MM3 (4.0-11.0)
[2017-08-23 19:10] LABS: WESTERGREN SEDIMENTATION RATE 41 mm/hr (0-30)
== END ==
LOC: PLAB 13:51
PROVIDERS: ATTEND Legal Medicine
DX: L03.115 Cellulitis of right lower limb (principal)
CPT/HCPCS: 36415; 85025; 85652; 86140

== ENCOUNTER → 2017-08-30 | Outpatient (CLI) | payer MEDICARE ==
[~2017-08-30] MED LIST changes: -ENOX40P SQ; -FURO20TA PO; -KLOR10TA PO; -LACTCAP8 PO; -OXYC1TAB63 PO
[2017-08-30 10:05] LABS: AUTOMATED NEUTROPHIL # 8.6 TH/MM3 (1.8-7.7); BASOPHIL # 0.1 TH/MM3 (0-0.2); BASOPHIL % 0.8 % (0.0-2.0); EOSINOPHIL # 0.3 TH/MM3 (0-0.4); EOSINOPHIL % 2.3 % (0.0-4.0); HEMATOCRIT 37.4 % (35.0-46.0); HEMOGLOBIN 12.7 GM/DL (11.6-15.3); LYMPH % 13.8 % (9.0-44.0); LYMPHOCYTE # 1.6 TH/MM3 (1.0-4.8); MEAN CELL VOLUME 89.3 FL (80.0-100.0); MEAN CORPUSCULAR HEMOGLOBIN 30.3 PG (27.0-34.0); MEAN PLATELET VOLUME 8.8 FL (7.0-11.0); MONO % 7.8 % (0.0-8.0); MONOCYTE # 0.9 TH/MM3 (0-0.9); NEUT % 75.3 % (16.0-70.0); PLATELET COUNT 341 TH/MM3 (150-450); RED BLOOD COUNT 4.19 MIL/MM3 (4.00-5.30); RED CELL DISTRIBUTION WIDTH 14.2 % (11.6-17.2); WHITE BLOOD COUNT 11.5 TH/MM3 (4.0-11.0)
[2017-08-30 10:35] LABS: BICARBONATE 31.2 MEQ/L (21.0-32.0); C-REACTIVE PROTEIN 0.95 MG/DL (0.00-0.30); CALCIUM 8.7 MG/DL (8.5-10.1); CREATININE 0.89 MG/DL (0.50-1.00)
[2017-08-30 10:42] LABS: WESTERGREN SEDIMENTATION RATE 58 mm/hr (0-30)
== END ==
LOC: PLAB 08:30
PROVIDERS: ATTEND Legal Medicine
DX: E87.6 Hypokalemia (principal); L03.115 Cellulitis of right lower limb
CPT/HCPCS: 36415; 80048; 85025; 85652; 86140

== ENCOUNTER → 2017-09-11 | Outpatient (CLI) | payer MEDICARE ==
[2017-09-11 13:45] LABS: AUTOMATED NEUTROPHIL # 7.1 TH/MM3 (1.8-7.7); BASOPHIL # 0.1 TH/MM3 (0-0.2); BASOPHIL % 0.9 % (0.0-2.0); EOSINOPHIL # 0.2 TH/MM3 (0-0.4); EOSINOPHIL % 2.5 % (0.0-4.0); HEMATOCRIT 37.6 % (35.0-46.0); HEMOGLOBIN 12.6 GM/DL (11.6-15.3); LYMPH % 14.8 % (9.0-44.0); LYMPHOCYTE # 1.4 TH/MM3 (1.0-4.8); MEAN CELL VOLUME 89.3 FL (80.0-100.0); MEAN CORPUSCULAR HEMOGLOBIN 29.9 PG (27.0-34.0); MEAN CORPUSCULAR HGB CONC 33.5 % (32.0-36.0); MEAN PLATELET VOLUME 9.3 FL (7.0-11.0); MONO % 7.7 % (0.0-8.0); MONOCYTE # 0.7 TH/MM3 (0-0.9); NEUT % 74.1 % (16.0-70.0); PLATELET COUNT 329 TH/MM3 (150-450); RED BLOOD COUNT 4.22 MIL/MM3 (4.00-5.30); RED CELL DISTRIBUTION WIDTH 13.9 % (11.6-17.2); WHITE BLOOD COUNT 9.5 TH/MM3 (4.0-11.0)
[2017-09-11 14:03] LABS: C-REACTIVE PROTEIN 0.53 MG/DL (0.00-0.30)
[2017-09-11 14:11] LABS: WESTERGREN SEDIMENTATION RATE 59 mm/hr (0-30)
== END ==
LOC: PLAB 08:57
PROVIDERS: ATTEND Legal Medicine
DX: Z00.00 Encounter for general adult medical examination without abnormal findings (principal); L03.115 Cellulitis of right lower limb
CPT/HCPCS: 36415; 84132; 85025; 85652; 86140

== ENCOUNTER → 2017-10-19 | Outpatient (CLI) | payer MEDICARE ==
[2017-10-19 14:13] LABS: ALBUMIN 3.5 GM/DL (3.4-5.0); AST (GOT) 12 U/L (15-37); BICARBONATE 27.9 MEQ/L (21.0-32.0); BLOOD UREA NITROGEN 21 MG/DL (7-18); CALCIUM 9.8 MG/DL (8.5-10.1); CHLORIDE 100 MEQ/L (98-107); GLOMERULAR FILTRATION RATE 52 ML/MIN (>89); GLUCOSE,FASTING 84 MG/DL (74-99); SODIUM (NA) 139 MEQ/L (136-145)
[2017-10-19 14:27] LABS: ALKALINE PHOSPHATASE 82 U/L (45-117); ALT (GPT) 20 U/L (10-53); FREE T4 1.54 NG/DL (0.76-1.46); TOTAL BILIRUBIN ADULT 0.6 MG/DL (0.2-1.0); TOTAL PROTEIN 8.3 GM/DL (6.4-8.2)
== END ==
LOC: PLAB 08:52
PROVIDERS: ATTEND Internal Medicine Endocrinology, Diabetes & Metabolism
DX: E21.0 Primary hyperparathyroidism (principal); E55.9 Vitamin D deficiency, unspecified; E89.0 Postprocedural hypothyroidism
CPT/HCPCS: 36415; 80053; 82652; 83970; 84439; 84443